=== PATIENT | male | born 1970 | race Caucasian/White ===

== ENCOUNTER 2022-06-11 08:48 | Emergency (ER) | payer OTHER, SELFPAY ==
--- NOTE | ~2022-06-11 | CT_ITS ---
EXAMINATION: CT ABDOMEN AND PELVIS WITHOUT CONTRAST CLINICAL INFORMATION: Abdominal pain and weight loss COMPARISON: None available. TECHNIQUE: Multidetector volumetric imaging was performed from the superior aspect of the liver through the pubic symphysis. Sagittal and coronal reformatted images were obtained on the technologist's workstation. This CT examination was performed using dose optimization techniques as appropriate, variously including the following: *Automated exposure control *Adjustment of mA and/or kV according to patient size (this includes techniques or standardized protocols for targeted exams where dose is matched to indication/reason for exam; i.e. extremities or head) *Use of iterative reconstruction technique DLP: 603 mGy-cm FINDINGS: LUNG BASES: The visualized lung bases are unremarkable. LIVER, GALLBLADDER, AND BILIARY TREE: The liver is normal in size, shape, and attenuation. No focal hepatic lesion or biliary ductal dilatation is present. The gallbladder is unremarkable with no evidence of radiopaque gallstones, gallbladder wall thickening, or obvious pericholecystic inflammatory changes. There is a large amount of ascites. PANCREAS: Unremarkable. SPLEEN: There are posterior scalp margins of spleen but no enlargement. The spleen is homogeneous in density. ADRENAL GLANDS: Unremarkable. KIDNEYS AND URETERS: The kidneys are normal in size, shape, and attenuation. No hydronephrosis, hydroureter, or calculi seen. No perinephric stranding. BLADDER: The bladder is decompressed. GASTROINTESTINAL TRACT: There is scattered stool and gas seen throughout the colon without distention. The small bowel loops are normal caliber. Appendix is not seen. ABDOMINAL WALL: No significant hernia is appreciated. LYMPH NODES: Small mesenteric lymph nodes with the largest one measuring 9 mm. VASCULAR: Unremarkable. PELVIC VISCERA: The prostate gland is enlarged. No abnormal lymph nodes seen. OSSEOUS STRUCTURES: Unremarkable. CT/CT abdomen pelvis wo IV con IMPRESSION: Diffuse significant ascites. Mild constipation. Fleischner guidelines were followed.
--- NOTE | ~2022-06-11 | US_ITS ---
EXAMINATION: Ultrasound-guided paracentesis. CLINICAL INDICATION: large volume ascites. COMPARISON: CT abdomen and pelvis performed earlier today at 10:16 AM. TECHNIQUE: Following explaining ultrasound-guided paracentesis procedure, benefits and risk, a written consent was obtained. Patient was placed supine on ultrasound stretcher and preliminary ultrasound imaging was obtained. An optimal site was selected along the left lower quadrant, marked, cleaned and draped in usual sterile manner. 1% lidocaine was injected at puncture site. Through a small skin incision a 5 [place] [employer] catheter was advanced into the peritoneal space. After observing fluid return, stylet was withdrawn and catheter connected to vacuum bottle via connecting cannula. After obtaining all fluid and observing no more fluid return, the catheter was removed and complete hemostasis was achieved at puncture site. Sterile dressing applied postprocedure. FINDINGS: On preliminary ultrasound imaging there is large amount of free fluid. Approximately 6.2 L of yellowish fluid was drained from the left lower quadrant. US/US paracentesis abd w/image IMPRESSION: Successful ultrasound-guided diagnostic and therapeutic paracentesis performed.
[2022-06-11 08:55] VITALS: BP 111/70; PULSE 81; RESP 16; TEMP 36.2; O2SAT 100; BMI 27.2
--- NOTE | 2022-06-11 09:53 | ED_ITS ---
HPI - Abdominal Pain General Chief Complaint: Abdominal Pain Stated Complaint: abd pain, severe back pain Time Seen by Provider: 06/11/22 09:45 Source: patient and RN notes reviewed Mode of arrival: ambulatory Limitations: no limitations History of Present Illness HPI narrative: This is a [id number]-spp-male who presents to the emergency department with complaints of ongoing abdominal bloating, early satiety, nausea, weight loss, and constipation since January 2022, worsening over the last week. Patient states that he has been seen multiple times at [facility] and a GI specialist since the onset of his symptoms. He states that he had a unremarkable colonoscopy performed last year, a breath test, and was told he had SIBO and to eliminate possible food triggers, now avoiding gluten, dairy, without much relief. He was treated with a course of antibiotics which he completed without any relief. He is going to be seen by Issa CAGE in June as he has not been able to get [facility] for follow up for continued symptoms. Last BM was this morning, which was normal for him. No nausea, vomiting or diarrhea. He also has had back pain develop over the last week. He has been taking Miralax with some relief. MD elicited complaint: abdominal pain Pertinent past history: constipation Onset (ago): month(s) Pain Consistency: constant Location: diffuse Severity: moderate Quality: aching Migration to: bilateral flank Exacerbating factors: nothing Relieving factors: nothing Associated symptoms: nausea Related Data Previous Rx's Medication Instructions Recorded spironolactone 25 mg tablet 25 mg PO DAILY #30 tabs 06/11/22 Allergies Allergy/AdvReac Type Severity Reaction Status Date / Time Penicillins Allergy Rash Verified 06/11/22 08:54 Review of Systems Review of Systems Yes all other systems are reviewed and are negative [facility] Social History Social History Advance Directives: No Advance Directives Information Provided: Yes Physical Exam ED Vital Signs: Vital Signs - 24 hr 06/11/22 08:55 Temperature 97.2 F Pulse Rate 81 Respiratory Rate 16 Blood Pressure 111/70 Pulse Oximetry 100 Oxygen Delivery Method Room Air BMI result Body Mass Index 27.2 Appearance: Alert. Oriented X3. No acute distress. Eyes: Pupils equal, round and reactive to light. ENT: Pharynx normal. Neck: Normal inspection. Neck supple. CVS: Normal heart rate and rhythm. Pulses normal. Respiratory: No respiratory distress. Breath sounds normal. Abdomen: Abdomen is distended but soft, and diffusely tender without point tenderness. No rebound or guarding. +BS x4 Skin: Skin warm and dry. Normal skin color. Normal skin turgor. No rashes. Extremities: No lower extremity edema. Neuro: Oriented X 3. No motor deficit. No sensory deficit. Course Course Course Narrative: 1030 - Received [facility] GI notes received from outpatient appointment on 2022. Per documentation, patient's colonoscopy was on 07/17 which was unremarkable. H. pylori testing was done by his primary care physician which was negative. They suspected that he was experiencing bloating secondary to constipation and was advised to start MiraLax 17 g daily. There is question of SIBO, and SIBO testing was ordered at that time, results not included in this documentation. Reevaluation(s) Reevaluation #1: CT abdomen showing significant ascites and mild constipation, paged Dr. Gonzalez from GI for further recommendations. Time: 11:16 Reevaluation #2: Spoke w/ Dr. Gonzalez - recommending paracentesis, concern for possible underlying malignancy. cytology ordered. Reevaluation #3: Patient returns from paracenteosis, 6.3L removed. labs sent. Patient feeling much better. He is hemodynamically stable. Stable for discharge home. Time: 14:31 Medical Decision Making Medical Decision Making MDM Narrative: This is a 51-year-old male, with past medical history of SIBO, who presents emergency department for evaluation of ongoing satiety, weight loss, abdominal bloating, and constipation since January of 2020 to worsen over the last week with associated bilateral flank pain. Exam is consistent with abdominal distension, although his abdomen is soft. He reports abdominal distension was worsening over the last 2 months. He has trace blood in his urine. He reports bilateral flank pain and back pain. CT scan of the abdomen was performed which is showing large volume ascites, normal appearing liver with no evidence of cirrhotic changes. Liver enzymes are normal. Unclear etiology of his ascites at this time. Spoke with Dr. Gonzalez from GI who is recommending paracentesis. Paracentesis was able to be performed today, 6.3 L were removed in Interventional Radiology. Patient tolerated the procedure well. He remains hemodynamically stable. He is feeling much better symptomatically. At this time comfortable discharge home with initiation of low does spironolactone along with close GI follow-up. Patient expressed understanding and agrees with plan. Stable for discharge home Differential Diagnosis Differential Diagnoses: The differential diagnosis associated with the presentation includes Constipation, Cirrhosis, SBO, Gatritis, Diverticulitis, Diverticulosis, Nephroliathiasis Consult Healthcare Provider Management of the patient was discussed with: [employer] Dr. Gonzalez from GI recommending paracentesis and fluid studies. he will need GI follow up Lab Data MDM Lab Attestation statement: I reviewed the patient's lab results. Lab workup reviewed. No macrocytosis, thrombocytopenia, coagulopathy, liver abnormalities to suggest any underlying liver disease. 06/11/22 10:08 06/11/22 10:08 Labs: Lab Results 06/11/22 06/11/22 06/11/22 Range/Units 10:08 10:08 10:09 WBC 5.9 (4.8-10.8) X10*3/uL RBC 4.43 L (4.60-5.80) X10*6/uL Hgb 12.7 L (14.0-18.0) g/dl Hct 38.8 L (42.0-52.0) % MCV 87.6 (80.0-98.0) fL MCH 28.7 (27.0-33.0) pg MCHC 32.7 (31.0-36.0) g/dl RDW 12.9 (11.0-16.0) % Plt Count 419 H (160-400) X10*3/uL MPV 9.0 L (9.4-12.4) fL Immature Gran % (Auto) 0.2 (0.0-0.4) % Neut % (Auto) 62.9 (45-73) % Lymph % (Auto) 25.6 (20-40) % [place] % (Auto) 8.2 (2-11) % Eos % (Auto) 2.4 (0-4) % Baso % (Auto) 0.7 (0-2) % Lymph # (Auto) 1.5 (1.2-4.9) X10*3/uL [place] # (Auto) 0.5 (0.1-1.2) X10*3/uL Eos # (Auto) 0.1 (0.0-0.4) X10*3/uL Baso # (Auto) 0.0 (0.0-0.2) X10*3/uL Abs Immat Gran (auto) 0.01 (0.00-0.03) X10*3/uL Absolute Neuts (auto) 3.7 (2.0-8.3) x10*3/uL Absolute Nucleated RBC 0.000 (0.0-0.012) X10*3/uL Nucleated RBC % (auto) 0.0 (0.0-0.2) /100WBC PT (10.0-13.1) SEC INR (0.9-1.1) APTT (26.0-36.4) SEC Sodium 139 (135-145) mmol/L Potassium 4.7 (3.3-5.1) mmol/L Chloride 102 (96-108) mmol/L Carbon Dioxide 29 (22-29) mmol/L Anion Gap 13 (12-20) BUN 14 (9-16) mg/dL Creatinine 0.83 (0.5-1.4) mg/dL Estim Creat Clear Calc 99.5 Estimated GFR > 60 Random Glucose 89 (60-115) mg/dL Calcium 9.3 (8.4-10.2) mg/dL Magnesium 2.2 (1.6-2.6) mg/dL Total Bilirubin 0.5 (0.0-1.0) mg/dL Direct Bilirubin < 0.2 (0.0-0.5) mg/dL AST 16 (5-37) U/L ALT 14 (0-40) U/L Alkaline Phosphatase 65 (39-117) U/L Total Protein 6.4 L (6.5-8.0) g/dL Albumin 3.9 (3.5-5.0) g/dL Urine Color Yellow Urine Appearance Clear Urine pH 6.0 (5.0-9.0) Ur Specific [place] 1.025 (1.005-1.025) Urine Protein Trace (Neg-Trace) mg/dL Urine Glucose (UA) Negative (Negative) mg/dL Urine Ketones 15 (Negative) mg/dL Urine Blood Trace H (Negative) Urine Nitrite Negative (Negative) Ur Leukocyte Esterase Negative (Negative) Urine RBC 3-5 H (0-2) /HPF Urine WBC 0-5 (0-5) /HPF Ur Squamous Epith Cells 0-2 (0-2) /HPF Urine Bacteria None Seen (None Seen) Hyaline Casts 0-2 (0-2) /LPF 06/11/22 Range/Units 11:44 WBC (4.8-10.8) X10*3/uL RBC (4.60-5.80) X10*6/uL Hgb (14.0-18.0) g/dl Hct (42.0-52.0) % MCV (80.0-98.0) fL MCH (27.0-33.0) pg MCHC (31.0-36.0) g/dl RDW (11.0-16.0) % Plt Count (160-400) X10*3/uL MPV (9.4-12.4) fL Immature Gran % (Auto) (0.0-0.4) % Neut % (Auto) (45-73) % Lymph % (Auto) (20-40) % [place] % (Auto) (2-11) % Eos % (Auto) (0-4) % Baso % (Auto) (0-2) % Lymph # (Auto) (1.2-4.9) X10*3/uL [place] # (Auto) (0.1-1.2) X10*3/uL Eos # (Auto) (0.0-0.4) X10*3/uL Baso # (Auto) (0.0-0.2) X10*3/uL Abs Immat Gran (auto) (0.00-0.03) X10*3/uL Absolute Neuts (auto) (2.0-8.3) x10*3/uL Absolute Nucleated RBC (0.0-0.012) X10*3/uL Nucleated RBC % (auto) (0.0-0.2) /100WBC PT 11.2 (10.0-13.1) SEC INR 1.0 (0.9-1.1) APTT 27.9 (26.0-36.4) SEC Sodium (135-145) mmol/L Potassium (3.3-5.1) mmol/L Chloride (96-108) mmol/L Carbon Dioxide (22-29) mmol/L Anion Gap (12-20) BUN (9-16) mg/dL Creatinine (0.5-1.4) mg/dL Estim Creat Clear Calc Estimated GFR Random Glucose (60-115) mg/dL Calcium (8.4-10.2) mg/dL Magnesium (1.6-2.6) mg/dL Total Bilirubin (0.0-1.0) mg/dL Direct Bilirubin (0.0-0.5) mg/dL AST (5-37) U/L ALT (0-40) U/L Alkaline Phosphatase (39-117) U/L Total Protein (6.5-8.0) g/dL Albumin (3.5-5.0) g/dL Urine Color Urine Appearance Urine pH (5.0-9.0) Ur Specific [place] (1.005-1.025) Urine Protein (Neg-Trace) mg/dL Urine Glucose (UA) (Negative) mg/dL Urine Ketones (Negative) mg/dL Urine Blood (Negative) Urine Nitrite (Negative) Ur Leukocyte Esterase (Negative) Urine RBC (0-2) /HPF Urine WBC (0-5) /HPF Ur Squamous Epith Cells (0-2) /HPF Urine Bacteria (None Seen) Hyaline Casts (0-2) /LPF Independent Interpretation I performed an independent interpretation of an: CT Scan Interpretation: CT abdomen - significant ascites noted, agree with radiologist interpretation Radiology Impression Discussion of test interpretation with radiology: I have reviewed the radiologist's reading. Radiologist Impression: FINDINGS: LUNG BASES: The visualized lung bases are unremarkable.? LIVER, GALLBLADDER, AND BILIARY TREE: The liver is normal in size, shape, and attenuation. No focal hepatic lesion or biliary ductal dilatation is present. The gallbladder is unremarkable with no evidence of radiopaque gallstones, gallbladder wall thickening, or obvious pericholecystic inflammatory changes. There is a large amount of ascites. PANCREAS: Unremarkable.? SPLEEN: There are posterior scalp margins of spleen but no enlargement. The spleen is homogeneous in density. ADRENAL GLANDS: Unremarkable.? KIDNEYS AND URETERS: The kidneys are normal in size, shape, and attenuation. No hydronephrosis, hydroureter, or calculi seen. No perinephric stranding. ? BLADDER: The bladder is decompressed.? GASTROINTESTINAL TRACT: There is scattered stool and gas seen throughout the colon without distention. The small bowel loops are normal caliber. Appendix is not seen.? ABDOMINAL WALL: No significant hernia is appreciated.? LYMPH NODES: Small mesenteric lymph nodes with the largest one measuring 9 mm. VASCULAR: Unremarkable. PELVIC VISCERA: The prostate gland is enlarged. No abnormal lymph nodes seen.? OSSEOUS STRUCTURES: Unremarkable.? CT/CT abdomen pelvis wo IV con IMPRESSION: Diffuse significant ascites. ? Mild constipation. ? Fleischner guidelines were followed. External Record Review External record reviewed: Office record and Outpatient record Prescription Management I considered prescription management with: Other (Diuretic) Medications Administered Discontinued Medications Generic Name Dose Route Start Last Admin Trade Name Freq PRN Reason Stop Dose Admin Albumin Human 100 mls @ 100 mls/hr 06/11/22 12:22 06/11/22 13:35 Kedbumin 25 % IV 06/11/22 13:21 Infused ONCE ONE Infusion Critical Care Time Critical Care Time Critical Care Time: No Discharge Plan Discharge Clinical Impression: Ascites Patient Disposition: Home, Self-Care Instructions: Ascites (ED) Additional Instructions: 6.3 L were drained from your abdomen. Fluid was sent for testing. Your liver appeared normal on your CT and your liver tests were normal on your bloodwork. Recommend taking the prescribed medication each morning to help prevent fluid build up in your abdomen. You must follow up with GI for further management. If you develop new or worsening symptoms call 911 or come back to the ER for further evaluation. Prescriptions: New spironolactone 25 mg tablet 25 mg PO DAILY Qty: 30 0RF Referrals: [facility] [Provider Group] (ascites s/p large volume tap 06/11, unclear etiology, needs follow up)
[2022-06-11 10:16] LABS: Appearance Urine Clear; Color Urine Yellow; Glucose Urine UA Negative (Negative); Leukocyte Esterase Urine Negative (Negative); Nitrite Urine Negative (Negative); Specific Gravity - Urine 1.025 (1.005-1.025); UMIC TRIGGER UACC YES; Urine Blood Trace (Negative); Urine Ketones 15 mg/dL (Negative); Urine Protein Trace mg/dL (Neg-Trace)
[2022-06-11 10:18] LABS: Bacteria Urine None Seen (None Seen); Hyaline Casts Urine 0-2 /LPF (0-2); Squamous Epithelial Cell Urine 0-2 /HPF (0-2); WBC Urine 0-5 /HPF (0-5)
[2022-06-11 10:19] LABS: MANUAL DIFF FLAG NO
[2022-06-11 10:22] LABS: Basophils Percent Auto 0.7 % (0-2); Eosinophils Absolute Auto 0.1 X10*3/uL (0.0-0.4); Eosinophils Percent Auto 2.4 % (0-4); Hematocrit 38.8 % (42.0-52.0); Hemoglobin 12.7 g/dl (14.0-18.0); Imm Gran Abs Auto 0.01 X10*3/uL (0.00-0.03); Imm Gran Pct Auto 0.2 % (0.0-0.4); Lymphocytes Absolute Auto 1.5 X10*3/uL (1.2-4.9); Lymphocytes Percent Auto 25.6 % (20-40); Mean Corpuscular HGB Conc 32.7 g/dl (31.0-36.0); Mean Corpuscular Hemoglobin 28.7 pg (27.0-33.0); Mean Corpuscular Volume 87.6 fL (80.0-98.0); Monocytes Absolute Auto 0.5 X10*3/uL (0.1-1.2); Monocytes Percent Auto 8.2 % (2-11); Neutrophils Absolute Auto 3.7 x10*3/uL (2.0-8.3); Neutrophils Percent Auto 62.9 % (45-73); Platelet Count 419 X10*3/uL (160-400); Red Blood Count 4.43 X10*6/uL (4.60-5.80); Red Cell Distribution Width 12.9 % (11.0-16.0); White Blood Count 5.9 X10*3/uL (4.8-10.8)
[2022-06-11 10:50] LABS: Alanine Aminotransferase 14 U/L (0-40); Albumin Level 3.9 g/dL (3.5-5.0); Alkaline Phosphatase 65 U/L (39-117); Anion Gap 13 (12-20); Aspartate Amino Transferase 16 U/L (5-37); Bilirubin Direct < 0.2 mg/dL (0.0-0.5); Bilirubin Total 0.5 mg/dL (0.0-1.0); Blood Urea Nitrogen 14 mg/dL (9-16); Calcium 9.3 mg/dL (8.4-10.2); Carbon Dioxide 29 mmol/L (22-29); Chloride 102 mmol/L (96-108); Creatinine Clr Calc Pharmacy 99.5; Estimated Glomerular Filt Rate > 60; Glucose Random 89 mg/dL (60-115); Magnesium 2.2 mg/dL (1.6-2.6); Potassium 4.7 mmol/L (3.3-5.1); Sodium 139 mmol/L (135-145); Total Protein 6.4 g/dL (6.5-8.0)
[2022-06-11 11:58] LABS: Prothrombin Time 11.2 SEC (10.0-13.1)
[2022-06-11 12:01] LABS: Partial Thromboplastin Time 27.9 SEC (26.0-36.4)
--- NOTE | 2022-06-11 12:09 | PC.NURSE ---
plan for IR at 1pm for fluid drainage.
[2022-06-11] MEDS: Albumin Human 25 % 100 ML IV (12:31)
[2022-06-11 17:47] LABS: pH Peritoneal Fluid 7.47
[2022-06-11 18:00] LABS: Glucose Peritoneal Fluid 83 MG/DL
[2022-06-14 07:39] LABS: Amylase Peritoneal Fluid 29
== END 2022-06-11 14:45 | disposition home or self-care (01) ==
PROVIDERS: Physician Assistant; Radiology Diagnostic Radiology; Emergency Provider Emergency Medicine
DX: R18.8 Other ascites (principal); K59.00 Constipation, unspecified; R10.13 Epigastric pain; M54.50 Low back pain, unspecified; Z79.899 Other long term (current) drug therapy
CPT/HCPCS: 36415; 49083; 74176; 80048; 80076; 81001; 82150; 82945; 83735; 83986; 84157; 85025; 85610; 85730; 87070; 87073; 87205; 88112; 88305; 88341; 88342; 96365; 99283; 99284; P9047

== ENCOUNTER 2022-06-16 10:19 | Emergency (ER) | payer OTHER, SELFPAY ==
--- NOTE | ~2022-06-16 | CT_ITS ---
EXAMINATION: CT ABDOMEN AND PELVIS WITH CONTRAST CLINICAL INFORMATION: Lower abdominal pain COMPARISON: 06/11/2022 TECHNIQUE: Multidetector volumetric images were obtained from the superior aspect of the liver through the pubic symphysis following administration 85 mL of Omnipaque 350 intravenous contrast. Sagittal and coronal reformatted images were obtained on the technologist's workstation. Oral contrast: No This CT examination was performed using dose optimization techniques as appropriate, variously including the following: *Automated exposure control *Adjustment of mA and/or kV according to patient size (this includes techniques or standardized protocols for targeted exams where dose is matched to indication/reason for exam; i.e. extremities or head) *Use of iterative reconstruction technique DLP: 486 mGy-cm FINDINGS: LUNG BASES: The visualized lung bases are unremarkable. PERITONEUM: Moderate ascites is present, decreased from the prior study. LIVER, GALLBLADDER, AND BILIARY TREE: The liver is normal in size, shape, and attenuation. No focal hepatic lesion or biliary ductal dilatation is present. The gallbladder is unremarkable with no evidence of radiopaque gallstones, gallbladder wall thickening, or obvious pericholecystic inflammatory changes. PANCREAS: Unremarkable. SPLEEN: The spleen is quite unusual appearance with scalloped margins but unchanged from prior. ADRENAL GLANDS: Unremarkable. KIDNEYS AND URETERS: The kidneys are normal in size, shape, and attenuation. No hydronephrosis, hydroureter, or calculi seen. No perinephric stranding. BLADDER: Unremarkable. GASTROINTESTINAL TRACT: The small and large bowel are unremarkable. Clear the tip of the cecum, there is an ovoid fluid collections seen measuring 5.4 x 4.1 x 5.5 cm which has calcification around its age and there may be some surgical clips present at the level of the appendix. Appearances are unchanged when compared to the prior study. ABDOMINAL WALL: No significant hernia is appreciated. LYMPH NODES: No retroperitoneal lymphadenopathy. VASCULAR: Unremarkable. PELVIC VISCERA: Moderate BPH. Normal-appearing seminal vesicles OSSEOUS STRUCTURES: Unremarkable. CT/CT abdomen pelvis w IV con IMPRESSION: 1. Moderate ascites, decreased from the prior study. 2. Unchanged fluid collection adjacent to the tip of the cecum. 3. Incidental note made of BPH and scalloped margins of the spleen. Fleischner guidelines were followed.
[2022-06-16 11:03] VITALS: BP 133/72; PULSE 80; RESP 16; TEMP 37.3; O2SAT 100; BMI 25.9
--- NOTE | 2022-06-16 11:04 | ED_ITS ---
HPI - General Adult General Chief complaint: Abdominal Pain <Ronny Velez - Last Filed: 06/16/22 11:05> Stated complaint: Abd pain <Ronny Velez - Last Filed: 06/16/22 11:05> Time Seen by Provider: 06/16/22 16:31 <Ronny Velez - Last Filed: 06/16/22 11:05> Source: patient <EKATERINA Jordan - Last Filed: 06/16/22 18:16> Mode of arrival: ambulatory <EKAETRINA Jordan - Last Filed: 06/16/22 18:16> Limitations: no limitations <EKATERINA Jordan - Last Filed: 06/16/22 18:16> History of Present Illness HPI narrative: 51 y.o male w/ a PMHx appendectomy, ascites s/p paracentesis on 06/11/22, presents to the ED c/o worsening diffuse abdominal pain x5 days. Pt states he felt well after his recent paracentesis, but began developing abdominal pain the day after. Reports decreased p.o intake secondary to pain. Denies fevers, chills, chest pain, SOB, nausea, vomiting, diarrhea, constipation, or urinary symptoms. Of note patient seen on 06/11/2022 had diffuse significant ascites on CT, 6.3L ascetic fluid removed by IR, cytology showing atypical epithelial cells. Patient has follow-up with Gastroenterology on Tuesday <EKATERINA Jordan - Last Filed: 06/16/22 18:16> Onset (ago): day(s) <EKATERIAN Jordan - Last Filed: 06/16/22 18:16> Severity: mild <EKATERINA Jordan - Last Filed: 06/16/22 18:16> Exacerbating factors: eating <EKATERINA Jordan Last Filed: 06/16/22 18:16> Related Data Home medications: Previous Rx's Medication Instructions Recorded spironolactone 25 mg tablet 25 mg PO DAILY #30 tabs 06/11/22 ondansetron 4 mg disintegrating 4 mg PO Q6H PRN nausea and 06/16/22 tablet vomiting #14 tabs <Ronny Velez - Last Filed: 06/16/22 11:05> Allergies/adverse reactions: Allergies Allergy/AdvReac Type Severity Reaction Status Date / Time Penicillins Allergy Rash Verified 06/11/22 08:54 <Ronny Velez - Last Filed: 06/16/22 11:05> Review of Systems Review of Systems: Constitutional: No Fever, No Chills, No Fatigue, No Malaise ENT/Mouth: No Nasal Congestion, No sore throat, No Rhinorrhea Eyes: No Vision Changes Cardiovascular: No Chest Pain, No SOB, No Dyspnea on Exertion, No Orthopnea, No Palpitations Respiratory: No Cough, No Sputum, No Dyspnea Gastrointestinal: No Nausea, No Vomiting, No Diarrhea, No Constipation, +Abdominal pain, No Hematochezia, No Melena Genitourinary: No irregular bleeding, No Dysuria, No Hematuria, Musculoskeletal: No joint pain, No Myalgias, No Joint Swelling Skin: No Skin Lesions, No rash Neuro: No Weakness, No Loss of Consciousness, No Dizziness, No Headache <EKATERINA Jordan - Last Filed: 06/16/22 18:16> Yes all other systems are reviewed and are negative <EKATERINA Jordan - Last Filed: 06/16/22 18:16> Constitutional: Constitutional: Reports as per HPI <EKATERINA Jordan - Last Filed: 06/16/22 18:16> [facility] Past Medical History Attestation statement: The following information was validated with the patient. <EKATERINA Jordan - Last Filed: 06/16/22 18:16> Social History Social History: Social History Alcohol intake: never Smoked in Last 30 Days: No Use of substances other than those prescribed or required for medical reasons: No Advance Directives: No Advance Directives Information Provided: Yes <Ronny Velez - Last Filed: 06/16/22 11:05> Physical Exam ED Vital Signs: Vital Signs - 24 hr 06/16/22 11:03 06/16/22 14:10 06/16/22 16:00 Temperature 99.2 F 97.8 F 97.9 F Pulse Rate 80 67 78 Respiratory Rate 16 18 18 Blood Pressure 133/72 111/64 104/60 Pulse Oximetry 100 99 99 Oxygen Delivery Method Room Air Room Air Room Air 06/16/22 18:00 06/16/22 19:22 Temperature 98.1 F Pulse Rate 83 80 Respiratory Rate 16 18 Blood Pressure 115/70 Pulse Oximetry 100 100 Oxygen Delivery Method Room Air BMI result Body Mass Index 25.9 <Ronny Velez - Last Filed: 06/16/22 11:05> Vital Signs - 24 hr 06/16/22 11:03 06/16/22 14:10 06/16/22 16:00 Temperature 99.2 F 97.8 F 97.9 F Pulse Rate 80 67 78 Respiratory Rate 16 18 18 Blood Pressure 133/72 111/64 104/60 Pulse Oximetry 100 99 99 Oxygen Delivery Method Room Air Room Air Room Air 06/16/22 18:00 06/16/22 19:22 Temperature 98.1 F Pulse Rate 83 80 Respiratory Rate 16 18 Blood Pressure 115/70 Pulse Oximetry 100 100 Oxygen Delivery Method Room Air BMI result Body Mass Index 25.9 <EKATERINA Jordan - Last Filed: 06/16/22 18:16> Const General: cooperative, healthy appearing and no acute distress <EKATERINA Jordan - Last Filed: 06/16/22 18:16> Orientation/consciousness: patient oriented x3 <EKATERINA Jordan - Last Filed: 06/16/22 18:16> Limitations: no limitations <EKATERINA Jordan - Last Filed: 06/16/22 18:16> HENMT Head: Yes normal to inspection and Yes atraumatic <EKATERINA Jordan - Last Filed: 06/16/22 18:16> Ears: hearing grossly normal bilaterally <EKATERINA Jordan - Last Filed: 06/16/22 18:16> General nose exam: Normal external nose present <EKATERINA Jordan Last Filed: 06/16/22 18:16> Face and sinus: Yes normal facial exam <EKATERINA Jordan Last Filed: 06/16/22 18:16> Eyes General: appearance normal, both eyes and all related structures <EKATERINA Jordan Last Filed: 06/16/22 18:16> EOM: EOMs intact bilaterally <EKATERINA Jordan - Last Filed: 06/16/22 18:16> Neck Neck: Yes normal visual inspection and Yes no meningeal signs <Arely Hicks PA - Last Filed: 06/16/22 18:16> Resp Effort & Inspection: normal respiratory effort and no respiratory distress <Arely Hicks PA - Last Filed: 06/16/22 18:16> Auscultation: no wheezes <Arely Hicks PA - Last Filed: 06/16/22 18:16> Cardio Rate: regular rate <Arely Hicks PA - Last Filed: 06/16/22 18:16> Heart sounds: S1 normal heart sound present and S2 normal heart sound present <Arely Hicks PA - Last Filed: 06/16/22 18:16> GI Inspection: Yes normal to inspection and No distended <Arely Hicks PA - Last Filed: 06/16/22 18:16> Palpation (GI): Soft to palpation, Tenderness to palpation present (GI) (lower abdomen) with no rebound tenderness, no guarding, not rigid, no pulsatile masses and No Ascites present <Arely Hicks PA - Last Filed: 06/16/22 18:16> General: Yes no CVA tenderness <Arely Hicks PA - Last Filed: 06/16/22 18:16> Back/Spine/Pelvis Back: no CVA tenderness <Arely Hicks PA - Last Filed: 06/16/22 18:16> Skin Rashes: no rashes <Arely Hicks PA - Last Filed: 06/16/22 18:16> Wounds: no wounds <Arely Hicks PA - Last Filed: 06/16/22 18:16> Neuro General: patient oriented x3, tone normal and no meningeal signs <Arely Hicks PA - Last Filed: 06/16/22 18:16> Gait exam (Neuro): Normal gait present <Arely Hicks PA - Last Filed: 06/16/22 18:16> Extrem General: Yes normal to inspection and Yes no pedal edema <Arely Hicks PA - Last Filed: 06/16/22 18:16> Course Course Course Narrative: RME- 51-year-old male presenting for evaluation of abdominal pain and bloating. He was seen here 06/11/2022 is 6.3 L fluid draining through paracentesis. Plan for labs and the patient will wait for appropriate <Ronny Velez - Last Filed: 06/16/22 11:05> RME- 51-year-old male presenting for evaluation of abdominal pain and bloating. He was seen here 06/11/2022 is 6.3 L fluid draining through paracentesis. Plan for labs and the patient will wait for appropriate -1729--no leukocytosis. Labs otherwise unremarkable. UA with blood/rbc's, not infected -1800--ED care transferred to EKATERINA Romo pending CT and re-eval. Dispo per results <EKATERINA Jordan - Last Filed: 06/16/22 18:16> Medications Administered Discontinued Medications Generic Name Dose Route Start Last Admin Trade Name Freq PRN Reason Stop Dose Admin Sodium Chloride 500 mls @ 999 mls/hr 06/16/22 17:00 06/16/22 20:23 Ns IV 06/16/22 17:30 Infused .Q31M ARIELLE Infusion Iohexol 100 ml 06/16/22 19:37 06/16/22 19:37 Iohexol 350 Mg/Ml 100 Ml Infus..Btl IV 06/16/22 19:38 85 ml ONCE ONE Administration <Ronny Velez - Last Filed: 06/16/22 11:05> Medications Administered Discontinued Medications Generic Name Dose Route Start Last Admin Trade Name Freq PRN Reason Stop Dose Admin Sodium Chloride 500 mls @ 999 mls/hr 06/16/22 17:00 06/16/22 20:23 Ns IV 06/16/22 17:30 Infused .Q31M ARIELLE Infusion Iohexol 100 ml 06/16/22 19:37 06/16/22 19:37 Iohexol 350 Mg/Ml 100 Ml Infus..Btl IV 06/16/22 19:38 85 ml ONCE ONE Administration <EKATERINA Jordan - Last Filed: 06/16/22 18:16> Medical Decision Making Medical Decision Making MDM Narrative: 51 y.o male w/ a PMHx appendectomy, ascites s/p paracentesis on 06/11/22, presents to the ED c/o worsening diffuse abdominal pain x5 days. On exam, patient is well-appearing, NAD, VSS. Abdomen is soft, non-distended with lower ttp, no rebound or guarding. No CVAT, No pedal edema. No appreciable ascites at this time. Low suspicion for SBP. Concern for diverticulitis vs colitis vs UTI. Lower suspicion for cholecystitis/pancreatitis. Low suspicion for fluid reaccumulation Plan: Labs, UA, abdominal CT w/contrast Please refer to course for remaining clinical decision making, interpretation of labs/imaging results, and discussions with consultants and/or family members. <EKATERINA Jordan - Last Filed: 06/16/22 18:16> Differential Diagnosis Differential Diagnoses: The differential diagnosis associated with the presentation includes <EKATERINA Jordan - Last Filed: 06/16/22 18:16> As above <EKATERINA Jordan - Last Filed: 06/16/22 18:16> Admission/Observation Consideration of admission/observation: Escalation of care including admission/observation considered <EKATERINA Scott - Last Filed: 06/16/22 18:16> Lab Data MDM Lab Attestation statement: I reviewed the patient's lab results. <EKATERINA Jordan - Last Filed: 06/16/22 18:16> Result Diagrams: 06/16/22 12:21 06/16/22 12:21 <Ronny Velez - Last Filed: 06/16/22 11:05> Labs: Lab Results 06/16/22 06/16/22 06/16/22 Range/Units 12:21 12:21 12:21 WBC 7.1 (4.8-10.8) X10*3/uL RBC 4.79 (4.60-5.80) X10*6/uL Hgb 13.4 L (14.0-18.0) g/dl Hct 41.6 L (42.0-52.0) % MCV 86.8 (80.0-98.0) fL MCH 28.0 (27.0-33.0) pg MCHC 32.2 (31.0-36.0) g/dl RDW 12.9 (11.0-16.0) % Plt Count 469 H (160-400) X10*3/uL MPV 8.7 L (9.4-12.4) fL Immature Gran % (Auto) 0.3 (0.0-0.4) % Neut % (Auto) 64.2 (45-73) % Lymph % (Auto) 26.0 (20-40) % [place] % (Auto) 7.2 (2-11) % Eos % (Auto) 1.6 (0-4) % Baso % (Auto) 0.7 (0-2) % Lymph # (Auto) 1.8 (1.2-4.9) X10*3/uL [place] # (Auto) 0.5 (0.1-1.2) X10*3/uL Eos # (Auto) 0.1 (0.0-0.4) X10*3/uL Baso # (Auto) 0.1 (0.0-0.2) X10*3/uL Abs Immat Gran (auto) 0.02 (0.00-0.03) X10*3/uL Absolute Neuts (auto) 4.5 (2.0-8.3) x10*3/uL Absolute Nucleated RBC 0.000 (0.0-0.012) X10*3/uL Nucleated RBC % (auto) 0.0 (0.0-0.2) /100WBC PT 11.2 (10.0-13.1) SEC INR 1.0 (0.9-1.1) APTT 29.4 (26.0-36.4) SEC Sodium 139 (135-145) mmol/L Potassium 4.7 (3.3-5.1) mmol/L Chloride 102 (96-108) mmol/L Carbon Dioxide 26 (22-29) mmol/L Anion Gap 16 (12-20) BUN 13 (9-16) mg/dL Creatinine 0.79 (0.5-1.4) mg/dL Estim Creat Clear Calc 104.5 Estimated GFR > 60 Random Glucose 83 (60-115) mg/dL Calcium 9.6 (8.4-10.2) mg/dL Magnesium 2.2 (1.6-2.6) mg/dL Total Bilirubin 0.6 (0.0-1.0) mg/dL AST 33 (5-37) U/L ALT 76 H (0-40) U/L Alkaline Phosphatase 124 H (39-117) U/L Total Protein 6.5 (6.5-8.0) g/dL Albumin 4.0 (3.5-5.0) g/dL Lipase 28 (8-78) U/L <Ronny MarreroFam - Last Filed: 06/16/22 11:05> Lab Results 06/16/22 06/16/22 06/16/22 Range/Units 12:21 12:21 12:21 WBC 7.1 (4.8-10.8) X10*3/uL RBC 4.79 (4.60-5.80) X10*6/uL Hgb 13.4 L (14.0-18.0) g/dl Hct 41.6 L (42.0-52.0) % MCV 86.8 (80.0-98.0) fL MCH 28.0 (27.0-33.0) pg MCHC 32.2 (31.0-36.0) g/dl RDW 12.9 (11.0-16.0) % Plt Count 469 H (160-400) X10*3/uL MPV 8.7 L (9.4-12.4) fL Immature Gran % (Auto) 0.3 (0.0-0.4) % Neut % (Auto) 64.2 (45-73) % Lymph % (Auto) 26.0 (20-40) % [place] % (Auto) 7.2 (2-11) % Eos % (Auto) 1.6 (0-4) % Baso % (Auto) 0.7 (0-2) % Lymph # (Auto) 1.8 (1.2-4.9) X10*3/uL [place] # (Auto) 0.5 (0.1-1.2) X10*3/uL Eos # (Auto) 0.1 (0.0-0.4) X10*3/uL Baso # (Auto) 0.1 (0.0-0.2) X10*3/uL Abs Immat Gran (auto) 0.02 (0.00-0.03) X10*3/uL Absolute Neuts (auto) 4.5 (2.0-8.3) x10*3/uL Absolute Nucleated RBC 0.000 (0.0-0.012) X10*3/uL Nucleated RBC % (auto) 0.0 (0.0-0.2) /100WBC PT 11.2 (10.0-13.1) SEC INR 1.0 (0.9-1.1) APTT 29.4 (26.0-36.4) SEC Sodium 139 (135-145) mmol/L Potassium 4.7 (3.3-5.1) mmol/L Chloride 102 (96-108) mmol/L Carbon Dioxide 26 (22-29) mmol/L Anion Gap 16 (12-20) BUN 13 (9-16) mg/dL Creatinine 0.79 (0.5-1.4) mg/dL Estim Creat Clear Calc 104.5 Estimated GFR > 60 Random Glucose 83 (60-115) mg/dL Calcium 9.6 (8.4-10.2) mg/dL Magnesium 2.2 (1.6-2.6) mg/dL Total Bilirubin 0.6 (0.0-1.0) mg/dL AST 33 (5-37) U/L ALT 76 H (0-40) U/L Alkaline Phosphatase 124 H (39-117) U/L Total Protein 6.5 (6.5-8.0) g/dL Albumin 4.0 (3.5-5.0) g/dL Lipase 28 (8-78) U/L <EKATERINA Jordan - Last Filed: 06/16/22 18:16> Radiology Impression Discussion of test interpretation with radiology: I have reviewed the radiologist's reading. <EKATERINA Jordan - Last Filed: 06/16/22 18:16> External Record Review External record reviewed: Inpatient record, Office record, Outpatient record, Prior outpatient labs, Prior outpatient radiology, Primary care record and Outside ED record <EKATERINA Jordan - Last Filed: 06/16/22 18:16> Discharge Plan Discharge Clinical Impression: Abdominal pain <Ronny Velez - Last Filed: 06/16/22 11:05> Patient Disposition: Home, Self-Care <Ronny Velez - Last Filed: 06/16/22 11:05> Instructions: Abdominal Pain (ED) <Ronny Velez - Last Filed: 06/16/22 11:05> Additional Instructions: Take your medications as prescribed. If you were prescribed antibiotics today, it is important that you take your medication to their entirety, do not skip any doses, do not finish them early. Follow-up with your primary care provider this week. Follow-up with Gastroenterology within the next 1-3 days Return to the emergency department with new or worsening symptoms. Such as fevers, chills, chest pain, shortness of breath, nausea, vomiting, dizziness, headache, vision changes, lethargy In case of emergency call 911 CT/CT abdomen pelvis w IV con IMPRESSION: 1. Moderate ascites, decreased from the prior study. 2. Unchanged fluid collection adjacent to the tip of the cecum. 3. Incidental note made of BPH and scalloped margins of the spleen. Fleischner guidelines were followed. <Ronny Velez - Last Filed: 06/16/22 11:05> Prescriptions: New ondansetron 4 mg tablet,disintegrating 4 mg PO Q6H PRN (Reason: nausea and vomiting) Qty: 14 0RF No Action spironolactone 25 mg tablet 25 mg PO DAILY Qty: 30 0RF <Ronny Velez - Last Filed: 06/16/22 11:05> Referrals: [facility]Provider Group] - 1 day Physician,Unknown J [Primary Care Provider] - <Ronny Velez - Last Filed: 06/16/22 11:05> Stand Alone Forms: Work/School Release <Ronny Velez - Last Filed: 06/16/22 11:05>
[2022-06-16 12:25] LABS: MANUAL DIFF FLAG NO
[2022-06-16 12:27] LABS: Basophils Absolute Auto 0.1 X10*3/uL (0.0-0.2); Basophils Percent Auto 0.7 % (0-2); Eosinophils Absolute Auto 0.1 X10*3/uL (0.0-0.4); Eosinophils Percent Auto 1.6 % (0-4); Hematocrit 41.6 % (42.0-52.0); Hemoglobin 13.4 g/dl (14.0-18.0); Imm Gran Abs Auto 0.02 X10*3/uL (0.00-0.03); Imm Gran Pct Auto 0.3 % (0.0-0.4); Lymphocytes Absolute Auto 1.8 X10*3/uL (1.2-4.9); Mean Corpuscular HGB Conc 32.2 g/dl (31.0-36.0); Mean Corpuscular Volume 86.8 fL (80.0-98.0); Mean Platelet Volume 8.7 fL (9.4-12.4); Monocytes Absolute Auto 0.5 X10*3/uL (0.1-1.2); Monocytes Percent Auto 7.2 % (2-11); Neutrophils Absolute Auto 4.5 x10*3/uL (2.0-8.3); Neutrophils Percent Auto 64.2 % (45-73); Platelet Count 469 X10*3/uL (160-400); Red Blood Count 4.79 X10*6/uL (4.60-5.80); Red Cell Distribution Width 12.9 % (11.0-16.0); White Blood Count 7.1 X10*3/uL (4.8-10.8)
[2022-06-16 12:34] LABS: Prothrombin Time 11.2 SEC (10.0-13.1)
[2022-06-16 12:37] LABS: Partial Thromboplastin Time 29.4 SEC (26.0-36.4)
[2022-06-16 12:57] LABS: Alanine Aminotransferase 76 U/L (0-40); Alkaline Phosphatase 124 U/L (39-117); Anion Gap 16 (12-20); Aspartate Amino Transferase 33 U/L (5-37); Bilirubin Total 0.6 mg/dL (0.0-1.0); Blood Urea Nitrogen 13 mg/dL (9-16); Calcium 9.6 mg/dL (8.4-10.2); Carbon Dioxide 26 mmol/L (22-29); Chloride 102 mmol/L (96-108); Creatinine Clr Calc Pharmacy 104.5; Estimated Glomerular Filt Rate > 60; Glucose Random 83 mg/dL (60-115); Lipase 28 U/L (8-78); Potassium 4.7 mmol/L (3.3-5.1); Sodium 139 mmol/L (135-145); Total Protein 6.5 g/dL (6.5-8.0)
[2022-06-16 14:10] VITALS: BP 111/64; PULSE 67; RESP 18; TEMP 36.6; O2SAT 99
[2022-06-16 16:00] VITALS: BP 104/60; PULSE 78; RESP 18; TEMP 36.6; O2SAT 99
--- NOTE | 2022-06-16 16:29 | PC.NURSE ---
pt reporting 8/10 abdominal pain and bloating/fullness after only 2 bites of food. Pt had abdomen drained here last lisa. vitals stable, alert and oriented.
[2022-06-16 17:00] LABS: Magnesium 2.2 mg/dL (1.6-2.6)
[2022-06-16 18:00] VITALS: PULSE 83; RESP 16; O2SAT 100
[2022-06-16] MEDS: 0.9 % Sodium Chloride 500 ML 999 ML IV (18:50)
[2022-06-16 19:22] VITALS: BP 115/70; PULSE 80; RESP 18; TEMP 36.7; O2SAT 100
--- NOTE | 2022-06-16 19:23 | PC.NURSE ---
IV inserted, pt returned from CT scan. vitals stable. reporting no pain at the moment.
[2022-06-16] MEDS: iohexoL 350 MG/ML 100 ML INFUS..BTL IV (19:37)
[2022-06-16] MEDS: Ondansetron ODT 4 MG TAB.RAPDIS TRANSLINGU (21:21)
== END 2022-06-16 21:25 | disposition home or self-care (01) ==
PROVIDERS: Physician Assistant; Emergency Provider Internal Medicine
DX: R10.9 Unspecified abdominal pain (principal)
CPT/HCPCS: 36415; 74177; 80053; 83690; 83735; 85025; 85610; 85730; 96360; 96361; 99284; 99285; Q9967

== ENCOUNTER 2022-06-21 10:14 | Outpatient (REF) | payer OTHER, SELFPAY ==
[2022-06-22 09:04] LABS: CA-125 24 U/mL (<35); Cancer Antigen 15-3 9 U/mL (<32)
[2022-06-24 12:49] LABS: TS Negative Control Passed; TS Panel A 0; TS Panel B 2; TS Positive Control Passed; TSpotTB Negative (Negative)
== END 2022-06-21 10:15 | disposition home or self-care (01) ==
LOC: HO.LAB 10:14
PROVIDERS: Visit Provider Internal Medicine
DX: R18.8 Other ascites (principal); K35.32 Acute appendicitis with perforation, localized peritonitis, and gangrene, without abscess; C78.6 Secondary malignant neoplasm of retroperitoneum and peritoneum
CPT/HCPCS: 36415; 82378; 86300; 86304; 86481; 99202

== ENCOUNTER 2022-06-25 07:23 | Inpatient (IN) | payer MEDICAID, OTHER, SELFPAY ==
[2022-06-25] VITALS (9 sets, daily range): BP systolic 101–118; BP diastolic 55–73; PULSE 70–82; RESP 12–20; TEMP 36.2–36.8; O2SAT 96–100; BMI 27.5
--- NOTE | ~2022-06-25 | US_ITS ---
EXAMINATION: US ULTRASOUND-GUIDED PARACENTESIS CLINICAL INDICATION: Ascites. COMPARISON: CT abdomen pelvis 06/16/2022. TECHNIQUE: Following explaining ultrasound-guided paracentesis procedure, benefits and risks, a written consent was obtained from the patient. Patient was placed supine and preliminary ultrasound imaging was obtained. An optimal site was selected along the right lower quadrant and marked. The marked site was cleaned and draped in usual sterile manner. 1% lidocaine was injected at puncture site. Through a small skin incision a 5 [place] [employer] catheter was advanced into the peritoneal space. After observing fluid return, stylet was withdrawn and catheter connected to vacuum bottle. After obtaining all fluid and observing no more fluid return, catheter was removed and complete hemostasis achieved at puncture site. Sterile dressing applied postprocedure. Patient tolerated procedure well without immediate complications. FINDINGS: On preliminary ultrasound imaging there is moderate fluid within the peritoneal cavity. Approximately 6 L of clear yellowish/rashida color fluid was removed from the peritoneum. Part of this fluid was sent to lab as per physician's request. US/US paracentesis abd w/image IMPRESSION: Successful ultrasound-guided diagnostic and therapeutic paracentesis performed.
--- NOTE | ~2022-06-25 | MR_ITS ---
EXAMINATION: MRI ABDOMEN AND PELVIS WITH AND WITHOUT CONTRAST CLINICAL INFORMATION: ascites, ?malignancy COMPARISON: Compared to the 06/16 and 06/11/2022 CT scans TECHNIQUE: Multiple routine MRI sequences through the abdomen and pelvis were obtained on a high-field 1.5Tesla MRI. Pre-and postcontrast images with 8 mL of Gadavist intravenous contrast were obtained. This included a dynamic contrast-enhanced technique. FINDINGS: ABDOMEN: Lung bases: The visualized lung bases are unremarkable. Peritoneal space: Large volume of complex ascites is seen on the MRI the ascites appears to represent regions of both free fluid as well as multiloculated T2 bright fluid pockets scattered throughout the peritoneal space. 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 Fluid is seen within the lesser sac. The largest discrete oval-shaped collection abuts the cecum and measures 4.5 x 3.9 x 5.2 cm in size. In this location, this oval-shaped fluid collection structure could represent a partially ruptured mucocele as the likely source of this pseudomyxoma peritonei. Liver: The liver is normal in size, shape, and signal. There is subtle scalloping along the posterior lateral liver edge. No suspicious focal hepatic lesions seen. Specifically no suspicious arterial phase enhancing lesions or suspicious washout of contrast on later phases. No biliary ductal dilatation. Gallbladder: Gallbladder is unremarkable. No suspicious gallstones or filling defects. No gallbladder wall thickening or pericholecystic inflammatory changes. Pancreas: Pancreas is homogeneous in signal. No pancreatic ductal dilatation or obstruction. No peripancreatic inflammatory changes or fluid. Spleen: Multiple small loculated pockets of fluid scalloping the spleen are noted Adrenals: Unremarkable Kidneys: Kidneys are normal in size, shape, and signal. No suspicious renal mass lesion seen. No hydronephrosis or perinephric edema. Other: I do not appreciate any bulky retroperitoneal or mesenteric adenopathy on this study PELVIS: Bladder: Partially decompressed but otherwise unremarkable Pelvic Organs: Unremarkable Bones: Unremarkable MR/MR abdomen wo/w con IMPRESSION: Large volume of complex ascites with multiple loculated pockets of fluid scattered throughout the peritoneal space. 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 Medial to the cecum there is a more discrete oval-shaped fluid collection which may represent an appendiceal mucocele in this location. Ruptured mucocele would be a possible source of pseudomyxoma peritonei and could be clinically correlated.
[2022-06-25 08:00] LABS: MANUAL DIFF FLAG NO
--- NOTE | 2022-06-25 08:00 | PC.NURSE ---
Patient complaining of abdominal pain this morning. According to patient this is something that has been going on for a while now, he has had an abdominal puncture in the past to drain fluid and now the fluid has come back. Patient stating that he needs to get an MRI at some point to find out where the fluid is coming from. Patient having abdominal pain with the fluid collection and it makes it hard for him to take a deep breath. Upon evaluation patient noted to have a distended abdomen that is firm to the touch, patient taking more shallow breaths, lung sounds are clear at this time. IV obtained and labs drawn.
[2022-06-25 08:03] LABS: Basophils Percent Auto 0.7 % (0-2); Eosinophils Absolute Auto 0.1 X10*3/uL (0.0-0.4); Eosinophils Percent Auto 2.1 % (0-4); Hematocrit 39.8 % (42.0-52.0); Imm Gran Abs Auto 0.01 X10*3/uL (0.00-0.03); Imm Gran Pct Auto 0.2 % (0.0-0.4); Lymphocytes Absolute Auto 1.6 X10*3/uL (1.2-4.9); Lymphocytes Percent Auto 26.2 % (20-40); Mean Corpuscular HGB Conc 32.7 g/dl (31.0-36.0); Mean Corpuscular Hemoglobin 28.6 pg (27.0-33.0); Mean Corpuscular Volume 87.7 fL (80.0-98.0); Mean Platelet Volume 8.4 fL (9.4-12.4); Monocytes Absolute Auto 0.5 X10*3/uL (0.1-1.2); Monocytes Percent Auto 8.9 % (2-11); Neutrophils Absolute Auto 3.8 x10*3/uL (2.0-8.3); Neutrophils Percent Auto 61.9 % (45-73); Platelet Count 542 X10*3/uL (160-400); Red Blood Count 4.54 X10*6/uL (4.60-5.80); Red Cell Distribution Width 13.2 % (11.0-16.0); White Blood Count 6.1 X10*3/uL (4.8-10.8)
[2022-06-25 08:20] LABS: Potassium 4.4 mmol/L (3.3-5.1)
[2022-06-25 08:21] LABS: Alanine Aminotransferase 295 U/L (0-40); Albumin Level 3.6 g/dL (3.5-5.0); Alkaline Phosphatase 525 U/L (39-117); Anion Gap 13 (12-20); Aspartate Amino Transferase 146 U/L (5-37); Bilirubin Direct 0.3 mg/dL (0.0-0.5); Bilirubin Total 0.8 mg/dL (0.0-1.0); Blood Urea Nitrogen 9 mg/dL (9-16); Calcium 9.3 mg/dL (8.4-10.2); Carbon Dioxide 29 mmol/L (22-29); Chloride 102 mmol/L (96-108); Creatinine Clr Calc Pharmacy 110.4; Estimated Glomerular Filt Rate > 60; Glucose Random 96 mg/dL (60-115); Lipase 35 U/L (8-78); Sodium 140 mmol/L (135-145); Total Protein 6.2 g/dL (6.5-8.0)
--- NOTE | 2022-06-25 08:53 | ED.ABDPAIN ---
HPI - Abdominal Pain General Chief Complaint: Abdominal Pain Stated Complaint: Abd pain Time Seen by Provider: 06/25/22 07:30 History of Present Illness HPI narrative: Patient is a 51-year-old male with a history of ruptured appendix back in 2020. Had drains in place in [place] subsequently was taken out. Patient has been losing weight. Went to [facility]. Had a paracentesis done here in [place]. There is a question of malignancy noted a by the labs. Patient being followed by . Since being seen in mid May patient has been noticing increasing abdominal swelling discomfort abdominal fullness. Came in for further evaluation. Related Data Previous Rx's Medication Instructions Recorded spironolactone 25 mg tablet 25 mg PO DAILY #30 tabs 06/11/22 ondansetron 4 mg disintegrating 4 mg PO Q6H PRN nausea and 06/16/22 tablet vomiting #14 tabs food supplemt, lactose-reduced 1 ea PO TID 30 days #7,110 mL 06/21/22 (Ensure oral liquid) Allergies Allergy/AdvReac Type Severity Reaction Status Date / Time Penicillins Allergy Rash Verified 06/21/22 10:33 Review of Systems Review of Systems Positive abdominal distension PMFSH Past Medical History Medical History Perforated appendix Surgical History Hx of appendicitis Family History Family History Mother HTN (hypertension) Asthma Social History Social History Alcohol intake: never Smoked in Last 30 Days: No Use of substances other than those prescribed or required for medical reasons: No Advance Directives: No Advance Directives Information Provided: Yes Physical Exam ED Vital Signs: Vital Signs - 24 hr 06/25/22 07:28 06/25/22 07:36 Temperature 98.2 F Pulse Rate 80 82 Respiratory Rate 20 18 Blood Pressure 111/68 110/59 L Pulse Oximetry 100 100 Oxygen Delivery Method Room Air Room Air BMI result Body Mass Index 27.5 Appearance: Alert. Oriented X3. No acute distress. Eyes: Pupils equal, round and reactive to light. ENT: Pharynx normal. Neck: Normal inspection. Neck supple. No lymph nodes noted. No crepitus CVS: Normal heart rate and rhythm. Pulses normal. Normal S1 and S2 Respiratory: No respiratory distress. Breath sounds normal. No Wheezing. No rales Abdomen: Distended abdomen, tympanitic with an enlarged liver Skin: Skin warm and dry. Normal skin color. Normal skin turgor. Extremities: No lower extremity edema. Neurovascular intact to all extremities. No Lacerations. No Rash Neuro: Oriented X 3. No motor deficit. No sensory deficit. Moving all extermities. No slurred speech Medical Decision Making Medical Decision Making [facility] Narrative: Patient's had large amount of ascites during the last visit. Had labs drawn. Question secondary to a myxoma. Presented again for having increasing distention in the abdomen. Patient's liver enzymes are elevated. Likely the same pathology. Patient will require ultrasound paracentesis along with MRI to further delineate the etiology of patient's abdominal distension, ascites. Case was discussed with GI Dr. Banks. Wants patient to be admitted for further evaluation Patient is in stable condition. Awaiting admissions Differential Diagnosis Differential Diagnoses: The differential diagnosis associated with the presentation includes Ascites Consult Healthcare Provider Management of the patient was discussed with: Hospitalist and Compliance Examiner Darren Lab Data [facility] Lab Attestation statement: I reviewed the patient's lab results. 06/25/22 07:55 06/25/22 07:55 Labs: Lab Results 06/25/22 06/25/22 Range/Units 07:55 07:55 WBC 6.1 (4.8-10.8) X10*3/uL RBC 4.54 L (4.60-5.80) X10*6/uL Hgb 13.0 L (14.0-18.0) g/dl Hct 39.8 L (42.0-52.0) % MCV 87.7 (80.0-98.0) fL MCH 28.6 (27.0-33.0) pg MCHC 32.7 (31.0-36.0) g/dl RDW 13.2 (11.0-16.0) % Plt Count 542 H (160-400) X10*3/uL MPV 8.4 L (9.4-12.4) fL Immature Gran % (Auto) 0.2 (0.0-0.4) % Neut % (Auto) 61.9 (45-73) % Lymph % (Auto) 26.2 (20-40) % [place] % (Auto) 8.9 (2-11) % Eos % (Auto) 2.1 (0-4) % Baso % (Auto) 0.7 (0-2) % Lymph # (Auto) 1.6 (1.2-4.9) X10*3/uL [place] # (Auto) 0.5 (0.1-1.2) X10*3/uL Eos # (Auto) 0.1 (0.0-0.4) X10*3/uL Baso # (Auto) 0.0 (0.0-0.2) X10*3/uL Abs Immat Gran (auto) 0.01 (0.00-0.03) X10*3/uL Absolute Neuts (auto) 3.8 (2.0-8.3) x10*3/uL Absolute Nucleated RBC 0.000 (0.0-0.012) X10*3/uL Nucleated RBC % (auto) 0.0 (0.0-0.2) /100WBC Sodium 140 (135-145) mmol/L Potassium 4.4 (3.3-5.1) mmol/L Chloride 102 (96-108) mmol/L Carbon Dioxide 29 (22-29) mmol/L Anion Gap 13 (12-20) BUN 9 (9-16) mg/dL Creatinine 0.81 (0.5-1.4) mg/dL Estim Creat Clear Calc 110.4 Estimated GFR > 60 Random Glucose 96 (60-115) mg/dL Calcium 9.3 (8.4-10.2) mg/dL Total Bilirubin 0.8 (0.0-1.0) mg/dL Direct Bilirubin 0.3 (0.0-0.5) mg/dL AST 146 H (5-37) U/L ALT 295 H (0-40) U/L Alkaline Phosphatase 525 H (39-117) U/L Total Protein 6.2 L (6.5-8.0) g/dL Albumin 3.6 (3.5-5.0) g/dL Lipase 35 (8-78) U/L External Record Review External record reviewed: Inpatient record and Office record Chronic Conditions 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 No history of alcohol use Discharge Plan Discharge Clinical Impression: Ascites Patient Disposition: Admitted As Inpatient Prescriptions: No Action spironolactone 25 mg tablet 25 mg PO DAILY Qty: 30 0RF ondansetron 4 mg tablet,disintegrating 4 mg PO Q6H PRN (Reason: nausea and vomiting) Qty: 14 0RF Ensure Liquid 1 ea PO TID 30 Days Qty: 7110 1RF
[2022-06-25 09:15] LABS: Appearance Urine Clear; Color Urine Dark Yellow; Glucose Urine UA Negative (Negative); Leukocyte Esterase Urine Negative (Negative); Nitrite Urine Negative (Negative); UMIC TRIGGER UACC YES; Urine Blood Trace (Negative); Urine Ketones Negative (Negative); Urine Protein Trace mg/dL (Neg-Trace)
[2022-06-25 09:18] LABS: Bacteria Urine None Seen (None Seen); Hyaline Casts Urine 0-2 /LPF (0-2); Squamous Epithelial Cell Urine 0-2 /HPF (0-2); WBC Urine 0-5 /HPF (0-5)
--- NOTE | 2022-06-25 09:27 | PHA.MEDREC ---
Pharmacy Consult ? Medication Reconciliation Pharmacy has completed the medication reconciliation.
[2022-06-25 09:29] LABS: COVID-19 Test Negative (Negative); IDNOW Serial# 08D9AD1C
[2022-06-25] MEDS: Lidocaine HCl 1 % MPF 5 ML VIAL SUBCUT (11:09)
--- NOTE | 2022-06-25 11:09 | PC.NURSE ---
ultrasound called and told this nurse that patient had 6 liters drawn off his abdomen. Per ultrasound patient stable during procedure.
[2022-06-25 11:41] LABS: MN% 85.3 %; PMN% 14.7 %; WBC Peritoneal Fluid 0.417 X10*3/uL
--- NOTE | 2022-06-25 11:42 | P.HPHOSP_ITS ---
History of Present Illness Date of Service: 06/25/22 Chief Complaint: abd pain 51M PMH complicated appendicitis 2020 (abscesses, perforation) presented with abd pain. patient has been having ongoing abdominal pain and bloating since initial appendicitis episode. He has had workup at [facility] including unremarkable colonoscopy, and diagnosis of small intestine bacterial overgrowth with no improvement after treatment. He has been having worsening distension and pain since January 2022. He reports significant weight loss due to early Satiety inability to tolerate p.o. patient transferred care to [facility] has been seeing Dr. Banks. 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 Patient had initial relief after paracentesis, but after several days started to reaccumulate and have significant pain again so presented again to the ED. Another 6 L were drained with some relief. Review of Systems Review of Systems: Yes all other systems are reviewed and are negative [facility] Medical History Perforated appendix Family History Mother HTN (hypertension) Asthma Surgical History Hx of appendicitis Social History Alcohol intake: never Smoked in Last 30 Days: No Use of substances other than those prescribed or required for medical reasons: No Advance Directives: No Advance Directives Information Provided: Yes Meds Allergies Allergy/AdvReac Type Severity Reaction Status Date / Time Penicillins Allergy Rash Verified 06/21/22 10:33 Active Medications: Current Medications Ondansetron HCl (Ondansetron Odt 4 Mg Tab.Rapdis) 4 mg TRANSLINGU Q6H PRN PRN Reason: nausea and vomiting Pharmacy Consult (Consult Rx Perform Med Rec) 1 each MISCELLANE ONCE PRN PRN Reason: Consult order Spironolactone (Spironolactone 25 Mg Tablet) 25 mg PO DAILY ARIELLE; Protocol Physical Exam Vital Signs and Narrative: Vital Signs: Last Vital Signs Temp 98.2 F 06/25/22 07:28 Pulse 82 06/25/22 07:36 Resp 18 06/25/22 07:36 BP 110/59 L 06/25/22 07:36 Pulse Ox 100 06/25/22 07:36 O2 Del Method Room Air 06/25/22 07:36 BMI result Body Mass Index 27.5 General: AO X 3, no acute distress Resp: CTA bilateral, no accessory muscles used CVS: S1,S2,RRR GI: soft, non tender, no longer distended Neuro: motor grossly intact, alert Psych: appropriate affect, appropriate insight Results Labs 06/25/22 07:55 06/25/22 07:55 Labs: Laboratory Results - last 24 hr 06/25/22 06/25/22 06/25/22 07:55 07:55 08:59 MCV 87.7 MCH 28.6 MCHC 32.7 RDW 13.2 Plt Count 542 H MPV 8.4 L Immature Gran % (Auto) 0.2 Neut % (Auto) 61.9 Lymph % (Auto) 26.2 [place] % (Auto) 8.9 Eos % (Auto) 2.1 Baso % (Auto) 0.7 Lymph # (Auto) 1.6 [place] # (Auto) 0.5 Eos # (Auto) 0.1 Baso # (Auto) 0.0 Abs Immat Gran (auto) 0.01 Absolute Neuts (auto) 3.8 Absolute Nucleated RBC 0.000 Nucleated RBC % (auto) 0.0 PT INR Anion Gap 13 Estim Creat Clear Calc 110.4 Estimated GFR > 60 Random Glucose 96 Calcium 9.3 Total Bilirubin 0.8 Direct Bilirubin 0.3 AST 146 H ALT 295 H Alkaline Phosphatase 525 H Total Protein 6.2 L Albumin 3.6 Lipase 35 Urine Color Urine Appearance Urine pH Ur Specific [place] Urine Protein Urine Glucose (UA) Urine Ketones Urine Blood Urine Nitrite Ur Leukocyte Esterase Urine RBC Urine WBC Ur Squamous Epith Cells Urine Bacteria Hyaline Casts COVID-19 (BEBO) Negative COVID-19 Clin Com See Note 06/25/22 06/25/22 08:59 09:53 MCV MCH MCHC RDW Plt Count MPV Immature Gran % (Auto) Neut % (Auto) Lymph % (Auto) [place] % (Auto) Eos % (Auto) Baso % (Auto) Lymph # (Auto) [place] # (Auto) Eos # (Auto) Baso # (Auto) Abs Immat Gran (auto) Absolute Neuts (auto) Absolute Nucleated RBC Nucleated RBC % (auto) PT 11.0 INR 1.0 Anion Gap Estim Creat Clear Calc Estimated GFR Random Glucose Calcium Total Bilirubin Direct Bilirubin AST ALT Alkaline Phosphatase Total Protein Albumin Lipase Urine Color Dark Yellow Urine Appearance Clear Urine pH 6.0 Ur Specific [place] 1.020 Urine Protein Trace Urine Glucose (UA) Negative Urine Ketones Negative Urine Blood Trace H Urine Nitrite Negative Ur Leukocyte Esterase Negative Urine RBC 6-10 H Urine WBC 0-5 Ur Squamous Epith Cells 0-2 Urine Bacteria None Seen Hyaline Casts 0-2 COVID-19 (BEBO) COVID-19 Clin Com Assessment and Plan (1) Ascites: Status: Acute Plan 51M PMH appendicitis presented with symptomatic ascites and weight loss Symptomatic ascites and ongoing weight loss (moderate protein calorie malnutrition) Follow-up ascitic fluid studies MRI of abdomen with and without contrast GI eval DVT prophylaxis with Lovenox Full code Patient with ongoing painful ascites with rapid reaccumulation making outpatient workup not feasible, therefore, expected require at least 2 midnights inpatient. Time Spent With Patient Time: Total time managing care of this patient today ____ minutes. Quality Stroke Does the patient have a stroke diagnosis?: No VTE Prior VTE?: No VTE Risk Level:: Medical - moderate - high VTE Device Contraindication: Treatment Not Indicated VTE Drug Contraindication: N/A - Med Ordered
[2022-06-25 11:43] LABS: RBC Peritoneal Fluid < 0.002 X10*6/uL
--- NOTE | 2022-06-25 12:40 | PM.GICN ---
History of Present Illness Data of Consult Service Date: 06/25/22 Requesting physician: Christoph Lazaro Primary Care Provider: Unknown Physician HPI Reason for consult: Ascites 51y.o M with PMH of appendectomy 2020 currently undergoing work up for recurrent large volume ascites who is currently admitted to the hospital for pain management and elevated LFTs. Patient was recently seen in the office last week for initial visitation. Briefly, had perforated appendicitis in September 2020 while he was traveling through [place] treated with drainage at that time and eventually with appendectomy Oct 2020 at [facility]. Since a month out he has had abd pain and bloating. Underwent furhter work up including abd imaging which at that time did not show ascites and a colonoscopy Apr 2021 which was reportedly normal. Now since January, has been getting worse despite all the efforts which he describes as diffuse abd pain with distention, loss of appetite and unintentional weight loss. Was seen by GI PA at [facility] and given treatment for possible SIBO. Took for Abx x 2 weeks without any response. Continued to have abd distention and unintentional weight loss. Was eventually seen at [facility] 06/11 and was found to have diffuse ascites, normal appearing liver. Scalloped spleen. Fluid collection around cecum with internal calcifications. He underwent paracentesis with total of 6.2L removed. Fluidanalysis: high total protein of 5. SAAG N/A. 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 He then returned to ER 06/16 for worsening pain and distention. CT abd/pelv with contrast: moderate ascites. Scalloped spleen. Fluid collection at the cecum with calcifications. Since earlier this week, he has had reaccumlation of ascites with significant pain. Although outpatient paracentesis was requested, pt was not able to tolerate the discomfort at home and therefore presented to the ER. He is also noted to have worsening LFTs this admission. At the time of evaluation, he is s/p paracentesis and feels significantly better. Has an appetite now which he has not had the past 2 weeks. No nausea or pain currently. Review of Systems Review of Systems: Yes all other systems are reviewed and are negative [facility] Past Medical History Medical History Perforated appendix Family History Family History Mother HTN (hypertension) Asthma Surgical History Surgical History Hx of appendicitis Social History Social History Household Members: Spouse and Children Household Members Other:: 5 Housing: House Do you presently have visiting nurse or other home services: No Alcohol intake: never Patient Tobacco Use Status: Never used Tobacco Smoked in Last 30 Days: No Use of substances other than those prescribed or required for medical reasons: No Have you been hit, kicked, punched, or otherwise hurt by someone within the past year? If so, by whom?: No Do you feel safe in your current relationship?: Yes Is there a partner from a previous relationship who is making you feel unsafe now?: No Are you made to feel afraid or neglected: No Advance Directives: No Advance Directives Information Provided: Yes Do you have thoughts of harming others: None Do you have a plan to hurt others: No Plan Recently lost weight without trying: Yes How much weight loss: 24-33 pounds Eating poorly because of decreased appetite: Yes Nutrition screen score: 6 Nutrition Risks: No Nutritional Risk Poor oral hygiene: No Meds Allergies Allergy/AdvReac Type Severity Reaction Status Date / Time Penicillins Allergy Rash Verified 06/21/22 10:33 Active Medications: Current Medications Enoxaparin Sodium (Enoxaparin Sodium 40 Mg/0.4 Ml Syringe) 40 mg SUBCUT Q24H ARIELLE Ondansetron HCl (Ondansetron Odt 4 Mg Tab.Rapdis) 4 mg TRANSLINGU Q6H PRN PRN Reason: nausea and vomiting Pharmacy Consult (Consult Rx Perform Med Rec) 1 each MISCELLANE ONCE PRN PRN Reason: Consult order Sodium Chloride (0.9 % Sodium Chloride Flush 3 Ml Syringe) 3 ml IVFLUSH QSHIFT ARIELLE Spironolactone (Spironolactone 25 Mg Tablet) 25 mg PO DAILY ARIELLE; Protocol Physical Exam Vital Signs: Vital Signs: Last Vital Signs Temp 98.2 F 06/25/22 07:28 Pulse 80 06/25/22 12:12 Resp 15 06/25/22 12:12 BP 118/66 06/25/22 12:12 Pulse Ox 100 06/25/22 12:12 O2 Del Method Room Air 06/25/22 12:12 BMI result Body Mass Index 27.5 Gen Appear: NAD, undernourished HEENT: No scleral icterus, significant bitemporal wasting noted Chest: CTA CVS: Regular S1/S2 no murmurs Abd: soft, nontender, nondistended, bowel sounds normoactive Ext: No peripheral edema bilaterally Neuro: A/Ox3, no asterixis Results Labs 06/25/22 07:55 06/25/22 07:55 Labs: Short CBC 06/25/22 Range/Units 07:55 WBC 6.1 (4.8-10.8) X10*3/uL Hgb 13.0 L (14.0-18.0) g/dl Hct 39.8 L (42.0-52.0) % Plt Count 542 H (160-400) X10*3/uL BMP 06/25/22 07:55 Sodium 140 Potassium 4.4 Chloride 102 Carbon Dioxide 29 BUN 9 Creatinine 0.81 Calcium 9.3 Liver Function 06/25/22 Range/Units 07:55 Total Bilirubin 0.8 (0.0-1.0) mg/dL Direct Bilirubin 0.3 (0.0-0.5) mg/dL AST 146 H (5-37) U/L ALT 295 H (0-40) U/L Alkaline Phosphatase 525 H (39-117) U/L Albumin 3.6 (3.5-5.0) g/dL Urine 06/25/22 Range/Units 08:59 Urine Color Dark Yellow Urine Appearance Clear Urine pH 6.0 (5.0-9.0) Ur Specific [place] 1.020 (1.005-1.025) Urine Protein Trace (Neg-Trace) mg/dL Urine Glucose (UA) Negative (Negative) mg/dL Assessment and Plan (1) Ascites: Status: Acute (2) Elevated LFTs: Status: Acute Plan His symptoms have a very clear temporality the from his surgery for perforated appendicitis.? 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 His CEA was high on outpatient labs. Has a calcified fluid collection around the tip of the cecum and I am concerned this could have been the primary lesion. Request release from [facility] in process for appendectomy path. Pt currently admitted for pain management and LFTs also high this admission. Plan: - Fluid studies ordered on ascitic fluid: cell count, cytology, albumin, total protein, CEA, ADA, AFB smear and culture. - Urgent MRI abd/pel with and without contrast - Hepatitis serology ordered - No restriction to diet from GI standpoint. Pls add protein shakes TID as pt very malnourished. - Path from appendectomy requested from [facility] - If work up confirms pseudomyxoma, will likely need surg input for laproscopic peritoneal bx. Thank you for allowing me to participate in his care. Will follow. Please do not hesitate to reach out for any questions or concerns. Time Spent With Patient Time: Total time managing care of this patient today ____ minutes. Procedures Date of Service Date of Service: 06/25/22
[2022-06-25 14:17] LABS: BF Shift QC OK YES; Basophils Peritoneal Fl 1 %; Eosinophils Peritoneal Fl 1 %; Lymphocyte Peritoneal Fl 34 %; Man Diluent Bkgrd OK YES; Monocytes Peritoneal Fl 1 %; Neutrophils Peritoneal Fluid 1 %; Other Peritioneal Fl 62 %
--- NOTE | 2022-06-25 15:31 | MHC.CLN ---
NUTRITION CONSULT FOR UNPLANNED WEIGHT LOSS. REPORTS USUAL WEIGHT 212#. SOME PLANNED WEIGHT LOSS PRIOR TO JANUARY WITH DIET AND EXERCISE. REPORTS UNPLANNED WEIGHT LOSS SINCE JANUARY (-12.5%) DUE TO FEELING FULL, BLOATED, WITH CURRENT AXABLP=177#. DIET=REGULAR. ADDED ENSURE TID PER CONVERSATION WITH PATIENT. SUPPLEMENT PROVIDES ADDITIONAL 1050 KCALS, 60 G PROTEIN. PATIENT WITH REACCUMULATING ASCITES AND PARACENTESIS. FOLLOW FOR MEDICAL DX, INTAKE AND WEIGHT.
[2022-06-25] MEDS: 0.9 % Sodium Chloride Flush 3 ML SYRINGE IVFLUSH ×2 (16:56→20:17)
[2022-06-25] MEDS: Morphine Sulfate 2 MG/ML CARTRIDGE IVPUSH (18:44)
[2022-06-26 02:37] LABS: Albumin Peritoneal Fluid 2.8 GM/DL; Total Protein Peritoneal Fluid 4.4 GM/DL
[2022-06-26 02:55] VITALS: BP 101/61; PULSE 87; RESP 18; TEMP 36.4; O2SAT 98
[2022-06-26 05:47] LABS: Hematocrit 35.7 % (42.0-52.0); Hemoglobin 11.8 g/dl (14.0-18.0); Mean Corpuscular HGB Conc 33.1 g/dl (31.0-36.0); Mean Corpuscular Volume 87.7 fL (80.0-98.0); Mean Platelet Volume 8.8 fL (9.4-12.4); Platelet Count 505 X10*3/uL (160-400); Red Blood Count 4.07 X10*6/uL (4.60-5.80); Red Cell Distribution Width 13.2 % (11.0-16.0); White Blood Count 6.8 X10*3/uL (4.8-10.8)
[2022-06-26 06:08] LABS: Alanine Aminotransferase 312 U/L (0-40); Alkaline Phosphatase 476 U/L (39-117); Anion Gap 12 (12-20); Aspartate Amino Transferase 142 U/L (5-37); Bilirubin Direct 0.2 mg/dL (0.0-0.5); Bilirubin Total 0.6 mg/dL (0.0-1.0); Blood Urea Nitrogen 9 mg/dL (9-16); Calcium 8.9 mg/dL (8.4-10.2); Carbon Dioxide 28 mmol/L (22-29); Chloride 104 mmol/L (96-108); Creatinine Clr Calc Pharmacy 131.5; Estimated Glomerular Filt Rate > 60; Glucose Fasting 106 mg/dL (60-99); Potassium 4.2 mmol/L (3.3-5.1); Sodium 140 mmol/L (135-145)
[2022-06-26 07:45] VITALS: BP 111/64; PULSE 63; RESP 17; TEMP 36.3; O2SAT 98
--- NOTE | 2022-06-26 10:04 | P.PNIM_ITS ---
Subjective Subjective Date of Service: 06/26/22 Interval History: improved abd pain Physical Exam Vital Signs: Vital Signs: Last Vital Signs Temp 97.3 F 06/26/22 07:45 Pulse 63 06/26/22 07:45 Resp 17 06/26/22 07:45 BP 111/64 06/26/22 07:45 Pulse Ox 98 06/26/22 07:45 O2 Del Method Room Air 06/26/22 07:45 BMI result Body Mass Index 27.5 General: AO X 3, no acute distress Resp: CTA bilateral, no accessory muscles used CVS: S1,S2,RRR GI: soft, non tender, non distended Neuro: motor grossly intact, alert Psych: appropriate affect, appropriate insight Objective Data Active Medications Enoxaparin Sodium (Enoxaparin Sodium 40 Mg/0.4 Ml Syringe) 40 mg SUBCUT Q24H ARIELLE Morphine Sulfate (Morphine Sulfate 2 Mg/Ml Cartridge) 2 mg IVPUSH Q4H PRN; Protocol PRN Reason: Pain, Moderate (Pain Scale 4-6 Last Admin: 06/25/22 18:44 Dose: 2 mg Documented By: GREGORIA Ondansetron HCl (Ondansetron Odt 4 Mg Tab.Rapdis) 4 mg TRANSLINGU Q6H PRN PRN Reason: nausea and vomiting Pharmacy Consult (Consult Rx Perform Med Rec) 1 each MISCELLANE ONCE PRN PRN Reason: Consult order Sodium Chloride (0.9 % Sodium Chloride Flush 3 Ml Syringe) 3 ml IVFLUSH QSHIFT [facility] Last Admin: 06/25/22 20:17 Dose: 3 ml Documented By: LEE Spironolactone (Spironolactone 25 Mg Tablet) 25 mg PO DAILY [facility]; Protocol Labs 06/26/22 05:06 06/26/22 05:06 Labs: Laboratory Results - last 24 hr 06/25/22 06/25/22 06/25/22 09:53 10:30 10:30 MCV MCH MCHC RDW Plt Count MPV Absolute Nucleated RBC Nucleated RBC % (auto) PT 11.0 INR 1.0 Anion Gap Estim Creat Clear Calc Estimated GFR Fasting Glucose Calcium Total Bilirubin Direct Bilirubin AST ALT Alkaline Phosphatase Total Protein Albumin Peritoneal WBC 0.417 Peritoneal RBC < 0.002 Periton Neutrophils 1 Periton Lymphocytes 34 Peritoneal Monocytes 1 Peritoneal Eosinophils 1 Peritoneal Basophils 1 Peritoneal Other Cells 62 Peritoneal Tot Protein 4.4 Peritoneal Albumin 2.8 06/26/22 06/26/22 05:06 05:06 MCV 87.7 MCH 29.0 MCHC 33.1 RDW 13.2 Plt Count 505 H MPV 8.8 L Absolute Nucleated RBC 0.000 Nucleated RBC % (auto) 0.0 PT INR Anion Gap 12 Estim Creat Clear Calc 131.5 Estimated GFR > 60 Fasting Glucose 106 H Calcium 8.9 Total Bilirubin 0.6 Direct Bilirubin 0.2 AST 142 H ALT 312 H Alkaline Phosphatase 476 H Total Protein 5.0 L Albumin 3.0 L Peritoneal WBC Peritoneal RBC Periton Neutrophils Periton Lymphocytes Peritoneal Monocytes Peritoneal Eosinophils Peritoneal Basophils Peritoneal Other Cells Peritoneal Tot Protein Peritoneal Albumin Microbiology Microbiology Results: Microbiology 06/25/22 10:30 Gram Stain - Final Paracentesis Fluid Assessment and Plan (1) Elevated LFTs: Status: Acute Plan 51M PMH appendicitis presented with symptomatic ascites and weight loss Symptomatic ascites and ongoing weight loss (moderate protein calorie malnutrition) MRI suspicious for pseudomyxoma peritonei GI follow up surgery consult for biopsy DVT prophylaxis with Lovenox Full code Time Spent With Patient Time: Total time managing care of this patient today ____ minutes. Quality Stroke Does the patient have a stroke diagnosis?: No VTE Prior VTE?: No VTE Risk Level:: Medical - moderate - high VTE Device Contraindication: Treatment Not Indicated VTE Drug Contraindication: N/A - Med Ordered
[2022-06-26] MEDS: Spironolactone 25 MG TABLET PO (10:18)
[2022-06-26] MEDS: Enoxaparin Sodium 40 MG/0.4 ML SYRINGE SUBCUT (10:19)
[2022-06-26] MEDS: 0.9 % Sodium Chloride Flush 3 ML SYRINGE IVFLUSH ×3 (10:19→19:26)
--- NOTE | 2022-06-26 10:21 | P.CONGS_ITS ---
History of Present Illness Consult details Consult date: 06/26/22 Narrative: 51M admitted for ascites. He had laparoscopic appendectomy in 2020 in [facility] which was described to be a complicated appendicitis. He says that since that time, he has had problems with bloating and abdominal discomfort. He had been following with his doctors in [facility] and was diagnosed to have small bowel bacterial overgrowth. He says he had a colonoscopy as well. However, since about 6 months ago, he has been noticing worsening of his abdominal symptoms. He says his abdomen had started to appear more protruberant and he had been steadily losing weight. He eventually switched to GI here in [place]. He had a CT scan showing ascites, and he had paracentesis 2 weeks ago which was not definitive although suspicious for malginant ascites. He had improved after paracentesis but had worsening ag ain of the same symptoms. He was admitted and had a repeat paracentesis yesterday. His MRI showed ascites again, suspicious for pseudomyxoma peritonei. He feels better today after paracentesis. He is tolerating diet and has good BMs. Review of Systems Constitutional: Constitutional: Denies chills, Denies fever(s) and Reports weight loss Cardiovascular: Cardiovascular: Reports Abdominal Distension, Denies chest pain and Denies chest pain at rest Respiratory: Respiratory: Denies cough Gastrointestinal: Gastrointestinal: Denies hematochezia, Denies constipation and Denies diarrhea Genitourinary: Genitourinary: Denies difficulty urinating Neurologic: Denies behavioral changes and Denies focal weakness Psychiatric: Psychiatric: Denies behavioral changes [facility] Past Medical History Medical History Perforated appendix Family History Family History Mother HTN (hypertension) Asthma Surgical History Surgical History Hx of appendicitis Social History Social History (Updated 06/28/22 @ 09:33 by Cristiana Lockhart) Household Members: Spouse and Children Household Members Other:: 5 Housing: House Do you presently have visiting nurse or other home services: No Alcohol intake: never Patient Tobacco Use Status: Never used Tobacco Current occupational status: employed Meds Allergies Allergy/AdvReac Type Severity Reaction Status Date / Time Penicillins Allergy Rash Verified 06/28/22 09:33 Active Medications: Current Medications Enoxaparin Sodium (Enoxaparin Sodium 40 Mg/0.4 Ml Syringe) 40 mg SUBCUT Q24H [facility] Last Admin: 06/26/22 10:19 Dose: 40 mg Morphine Sulfate (Morphine Sulfate 2 Mg/Ml Cartridge) 2 mg IVPUSH Q4H PRN; P rotocol PRN Reason: Pain, Moderate (Pain Scale 4-6 Last Admin: 06/25/22 18:44 Dose: 2 mg Ondansetron HCl (Ondansetron Odt 4 Mg Tab.Rapdis) 4 mg TRANSLINGU Q6H PRN PRN Reason: nausea and vomiting Pharmacy Consult (Consult Rx Perform Med Rec) 1 each MISCELLANE ONCE PRN PRN Reason: Consult order Sodium Chloride (0.9 % Sodium Chloride Flush 3 Ml Syringe) 3 ml IVFLUSH QSHIFT [facility] Last Admin: 06/26/22 10:19 Dose: 3 ml Spironolactone (Spironolactone 25 Mg Tablet) 25 mg PO DAILY [facility]; Protocol Last Admin: 06/26/22 10:18 Dose: 25 mg Physical Exam Vital Signs: Vital Signs: Last Vital Signs Temp 97.3 F 06/26/22 07:45 Pulse 63 06/26/22 07:45 Resp 17 06/26/22 07:45 BP 111/64 06/26/22 07:45 Pulse Ox 98 06/26/22 07:45 O2 Del Method Room Air 06/26/22 07:45 BMI result Body Mass Index 27.5 Const: General: comfortable and no acute distress Orientation/consciousness: patient oriented x3 Neck: Neck: Yes no lymphadenopathy Resp: Auscultation: clear to auscultation bilaterally Cardio: Rhythm: regular rhythm GI: Palpation (GI): Soft to palpation, nontender and no guarding Neuro: General: patient oriented x3 Results Labs 06/26/22 05:06 06/26/22 05:06 Labs: Abnormal lab results 06/26/22 06/26/22 Range/Units 05:06 05:06 RBC 4.07 L (4.60-5.80) X10*6/uL Hgb 11.8 L (14.0-18.0) g/dl Hct 35.7 L (42.0-52.0) % Plt Count 505 H (160-400) X10*3/uL MPV 8.8 L (9.4-12.4) fL Fasting Glucose 106 H (60-99) mg/dL AST 142 H (5-37) U/L ALT 312 H (0-40) U/L Alkaline Phosphatase 476 H (39-117) U/L Total Protein 5.0 L (6.5-8.0) g/dL Albumin 3.0 L (3.5-5.0) g/dL Short CBC 06/26/22 Range/Units 05:06 WBC 6.8 (4.8-10.8) X10*3/uL Hgb 11.8 L (14.0-18.0) g/dl Hct 35.7 L (42.0-52.0) % Plt Count 505 H (160-400) X10*3/uL BMP 06/26/22 05:06 Sodium 140 Potassium 4.2 Chloride 104 Carbon Dioxide 28 BUN 9 Creatinine 0.68 Calcium 8.9 Liver Function 06/26/22 Range/Units 05:06 Total Bilirubin 0.6 (0.0-1.0) mg/dL Direct Bilirubin 0.2 (0.0-0.5) mg/dL AST 142 H (5-37) U/L ALT 312 H (0-40) U/L Alkaline Phosphatase 476 H (39-117) U/L Albumin 3.0 L (3.5-5.0) g/dL Urine 06/25/22 Range/Units 08:59 Urine Color Dark Yellow Urine Appearance Clear Urine pH 6.0 (5.0-9.0) Ur Specific [place] 1.020 (1.005-1.025) Urine Protein Trace (Neg-Trace) mg/dL Urine Glucose (UA) Negative (Negative) mg/dL All other labs normal. Laboratory Results WBC 6.8 X10*3/uL (4.8-10.8) 06/26/22 05:06 RBC 4.07 X10*6/uL (4.60-5.80) L 06/26/22 05:06 Hgb 11.8 g/dl (14.0-18.0) L 06/26/22 05:06 Hct 35.7 % (42.0-52.0) L 06/26/22 05:06 MCV 87.7 fL (80.0-98.0) 06/26/22 05:06 MCH 29.0 pg (27.0-33.0) 06/26/22 05:06 MCHC 33.1 g/dl (31.0-36.0) 06/26/22 05:06 RDW 13.2 % (11.0-16.0) 06/26/22 05:06 Plt Count 505 X10*3/uL (160-400) H 06/26/22 05:06 MPV 8.8 fL (9.4-12.4) L 06/26/22 05:06 Immature Gran % (Auto) 0.2 % (0.0-0.4) 06/25/22 07:55 Neut % (Auto) 61.9 % (45-73) 06/25/22 07:55 Lymph % (Auto) 26.2 % (20-40) 06/25/22 07:55 [place] % (Auto) 8.9 % (2-11) 06/25/22 07:55 Eos % (Auto) 2.1 % (0-4) 06/25/22 07:55 Baso % (Auto) 0.7 % (0-2) 06/25/22 07:55 Lymph # (Auto) 1.6 X10*3/uL (1.2-4.9) 06/25/22 07:55 [place] # (Auto) 0.5 X10*3/uL (0.1-1.2) 06/25/22 07:55 Eos # (Auto) 0.1 X10*3/uL (0.0-0.4) 06/25/22 07:55 Baso # (Auto) 0.0 X10*3/uL (0.0-0.2) 06/25/22 07:55 Abs Immat Gran (auto) 0.01 X10*3/uL (0.00-0.03) 06/25/22 07:55 Absolute Neuts (auto) 3.8 x10*3/uL (2.0-8.3) 06/25/22 07:55 Absolute Nucleated RBC 0.000 X10*3/uL (0.0-0.012) 06/26/22 05:06 Nucleated RBC % (auto) 0.0 /100WBC (0.0-0.2) 06/26/22 05:06 PT 11.0 SEC (10.0-13.1) 06/25/22 09:53 INR 1.0 (0.9-1.1) 06/25/22 09:53 Sodium 140 mmol/L (135-145) 06/26/22 05:06 Potassium 4.2 mmol/L (3.3-5.1) 06/26/22 05:06 Chloride 104 mmol/L (96-108) 06/26/22 05:06 Carbon Dioxide 28 mmol/L (22-29) 06/26/22 05:06 Anion Gap 12 (12-20) 06/26/22 05:06 BUN 9 mg/dL (9-16) 06/26/22 05:06 Creatinine 0.68 mg/dL (0.5-1.4) 06/26/22 05:06 Estim Creat Clear Calc 131.5 06/26/22 05:06 Estimated GFR > 60 06/26/22 05:06 Random Glucose 96 mg/dL (60-115) 06/25/22 07:55 Fasting Glucose 106 mg/dL (60-99) H 06/26/22 05:06 Calcium 8.9 mg/dL (8.4-10.2) 06/26/22 05:06 Total Bilirubin 0.6 mg/dL (0.0-1.0) 06/26/22 05:06 Direct Bilirubin 0.2 mg/dL (0.0-0.5) 06/26/22 05:06 AST 142 U/L (5-37) H 06/26/22 05:06 ALT 312 U/L (0-40) H 06/26/22 05:06 Alkaline Phosphatase 476 U/L (39-117) H 06/26/22 05:06 Total Protein 5.0 g/dL (6.5-8.0) L 06/26/22 05:06 Albumin 3.0 g/dL (3.5-5.0) L 06/26/22 05:06 Lipase 35 U/L (8-78) 06/25/22 07:55 Urine Color Dark Yellow 06/25/22 08:59 Urine Appearance Clear 06/25/22 08:59 Urine pH 6.0 (5.0-9.0) 06/25/22 08:59 Ur Specific [place] 1.020 (1.005-1.025) 06/25/22 08:59 Urine Protein Trace mg/dL (Neg-Trace) 06/25/22 08:59 Urine Glucose (UA) Negative mg/dL (Negative) 06/25/22 08:59 Urine Ketones Negative mg/dL (Negative) 06/25/22 08:59 Urine Blood Trace (Negative) H 06/25/22 08:59 Urine Nitrite Negative (Negative) 06/25/22 08:59 Ur Leukocyte Esterase Negative (Negative) 06/25/22 08:59 Urine RBC 6-10 /HPF (0-2) H 06/25/22 08:59 Urine WBC 0-5 /HPF (0-5) 06/25/22 08:59 Ur Squamous Epith Cells 0-2 /HPF (0-2) 06/25/22 08:59 Urine Bacteria None Seen (None Seen) 06/25/22 08:59 Hyaline Casts 0-2 /LPF (0-2) 06/25/22 08:59 Peritoneal WBC 0.417 X10*3/uL 06/25/22 10:30 Peritoneal RBC < 0.002 X10*6/uL 06/25/22 10:30 Periton Neutrophils 1 % 06/25/22 10:30 Periton Lymphocytes 34 % 06/25/22 10:30 Peritoneal Monocytes 1 % 06/25/22 10:30 Peritoneal Eosinophils 1 % 06/25/22 10:30 Peritoneal Basophils 1 % 06/25/22 10:30 Peritoneal Other Cells 62 % 06/25/22 10:30 Peritoneal Tot Protein 4.4 GM/DL 06/25/22 10:30 Peritoneal Albumin 2.8 GM/DL 06/25/22 10:30 COVID-19 (BEBO) Negative (Negative) 06/25/22 08:59 COVID-19 Clin Com See Note 06/25/22 08:59 Impressions Abdomen MRI 06/25/22 16:00 IMPRESSION: Large volume of complex ascites with multiple loculated pockets of fluid scattered throughout the peritoneal space. 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 Medial to the cecum there is a more discrete oval-shaped fluid collection which may represent an appendiceal mucocele in this location. Ruptured mucocele would be a possible source of pseudomyxoma peritonei and could be clinically correlated. Pelvis MRI 06/25/22 16:00 IMPRESSION: Large volume of complex ascites with multiple loculated pockets of fluid scattered throughout the peritoneal space. 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 Medial to the cecum there is a more discrete oval-shaped fluid collection which may represent an appendiceal mucocele in this location. Ruptured mucocele would be a possible source of pseudomyxoma peritonei and could be clinically correlated. Assessment and Plan (1) Ascites: Status: Acute Plan He has large volume ascites suggestive of pseudomyxoma on MRI with note of scall oping of the liver surface. There may be a mucoele adjacent to his cecum. He had undergone repeat paracentesis yesterday. Hopefully, the cytology testing will be more diagnostic. His abdominal exam is otherwise benign. If his ascites cytology does not reveal a diagnosis, we may consider other modes of establishing tissue diagnosis. Time Spent With Patient Time: Total time managing care of this patient today ____ minutes. Procedures Date of Service Date of Service: 06/26/22
--- NOTE | 2022-06-26 15:29 | MHC.CM.PN ---
PT REPORTS HE LIVES WITH HIS AND CHILDREN HE IS INDEPENDENT, WORKS AND DRIVES PT HAS NO DME AND NO SERVICES PT REPORTS HE HAS A HCP, COPY REQUESTED HE SAYS HIS PCP IS AT [facility] HE IS MIKAYLA HURLEY X 3 DCP: HOME NO SERVICES PT TO ARRANGE TRANSPORT
--- NOTE | 2022-06-26 15:46 | PM.GIPN ---
Subjective Subjective Date of Service: 06/26/22 Critical Care Time (minutes): 0 Comment: Pt seen and evaluated at bedside. COmfortable and nontoxic appearing. No abd discomfort reported. Physical Exam Vital Signs: Vital Signs: Last Vital Signs Temp 97.2 F 06/26/22 19:42 Pulse 74 06/26/22 19:42 Resp 16 06/26/22 19:42 BP 111/64 06/26/22 19:42 Pulse Ox 100 06/26/22 19:42 O2 Del Method Room Air 06/26/22 19:42 BMI result Body Mass Index 27.5 Gen appear: NAD Abd: soft, nontender, nondistended Objective Data Labs 06/26/22 05:06 06/26/22 05:06 Labs: Laboratory Results - last 24 hr 06/25/22 06/26/22 06/26/22 10:30 05:06 05:06 WBC 6.8 RBC 4.07 L Hgb 11.8 L Hct 35.7 L MCV 87.7 MCH 29.0 MCHC 33.1 RDW 13.2 Plt Count 505 H MPV 8.8 L Absolute Nucleated RBC 0.000 Nucleated RBC % (auto) 0.0 Sodium 140 Potassium 4.2 Chloride 104 Carbon Dioxide 28 Anion Gap 12 BUN 9 Creatinine 0.68 Estim Creat Clear Calc 131.5 Estimated GFR > 60 Fasting Glucose 106 H Calcium 8.9 Total Bilirubin 0.6 Direct Bilirubin 0.2 AST 142 H ALT 312 H Alkaline Phosphatase 476 H Total Protein 5.0 L Albumin 3.0 L Peritoneal Tot Protein 4.4 Peritoneal Albumin 2.8 Microbiology Microbiology Results: Microbiology 06/25/22 10:30 Paracentesis Fluid Gram Stain - Final 06/25/22 10:30 Paracentesis Fluid Routine Culture - Preliminary No growth to date. 06/25/22 10:30 Paracentesis Fluid Anaerobic Culture - Preliminary No growth to date. Procedures Date of Service Date of Service: 06/26/22 Progress Note: A&P Assessment and plan (1) Elevated LFTs: Status: Acute (2) Ascites: Status: Acute Plan Reviewed findings of the MRI which are also consistent with the clinical suspicion of pseudomyxoma peritonei. Appreciate input from surgery as well. CEA serum elevated to 26. Cytology and testing pending on ascites. If no immediate plans for diagnostic lap +/- debulking from surgical standpoint, can be discharged with outpatient follow up. He will likely need periodic paracentesis until definitive management, as mucinous ascites will likely not respond to diuretic therapy. Referral for outpatient para has already been sent out 06/23. Time Spent With Patient Time: Total time managing care of this patient today ____ minutes. Quality Stroke Does the patient have a stroke diagnosis?: No VTE Prior VTE?: No VTE Risk Level:: Medical - moderate - high VTE Device Contraindication: Treatment Not Indicated VTE Drug Contraindication: N/A - Med Ordered
[2022-06-26 15:53] VITALS: BP 113/61; PULSE 83; RESP 16; TEMP 36.3; O2SAT 98
[2022-06-26] MEDS: polyethylene glycoL 3350 17 GM POWD.PACK PO (15:55)
[2022-06-26 19:42] VITALS: BP 111/64; PULSE 74; RESP 16; TEMP 36.2; O2SAT 100
[2022-06-26 23:50] VITALS: BP 104/57; PULSE 74; RESP 16; TEMP 36.4; O2SAT 98
[2022-06-27 07:55] VITALS: BP 107/61; PULSE 74; RESP 16; TEMP 36.9; O2SAT 97
[2022-06-27] MEDS: Spironolactone 25 MG TABLET PO (09:35)
--- NOTE | 2022-06-27 09:57 | MHC.CM.PN ---
PT WILL DC HOME TODAY WITH NO SERVICES FAMILY TO TRANSPORT
--- NOTE | 2022-06-27 09:59 | P.DS_ITS ---
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 patient has been having ongoing abdominal pain and bloating since initial appendicitis episode.? He has had workup at [facility] including unremarkable colonoscopy, and diagnosis of small intestine bacterial overgrowth with no improvement after treatment.? He has been having worsening distension and pain since January 2022.? He reports significant weight loss due to early Satiety inability to tolerate p.o. patient transferred care to [facility] has been seeing Dr. Banks.? On 06/11/2022 presented to the ED and found to have a ascites which was drained for 6 L, cytology? suspicious for adenocarcinoma of GI origin but cannot exclude sampling of benign GI epithelium/perforation.? Patient had initial relief after paracentesis, but after several days started to reaccumulate and have significant pain again so presented again to the ED.? Another 6 L were drained with some relief. hospital course: Patient was admitted for symptomatic ascites and ongoing weight loss with moderate protein calorie malnutrition. Ascitic fluid studies from 06/11/2022 were suspicious for pseudomyxoma peritonei, MRI was done which also was suspicious for the same diagnosis. Patient's ascitic fluid was drained and he is feeling better. Will follow-up closely with Oncology for further management. Pathology from 2nd paracentesis is pending and should be followed up as well. Patient will follow-up with Radiology as outpatient for elective paracentesis as needed. Time Spent with Patient Time attestation: Total time managing care of this patient today ____ minutes. Discharge coordination time: Greater than 30 minutes Quality: Safe Use of Opioids Does Pt have an Active Cancer Diagnosis on the Problem List?: Yes Opioid Measure Date for CMS Report: 05/28/22 Opioid Measure Time for CMS Report: 10:39 Quality: Stroke Does the patient have a stroke diagnosis?: No Physical Exam Vital Signs: Vital Signs: Last Vital Signs Temp 98.4 F 06/27/22 07:55 Pulse 74 06/27/22 07:55 Resp 16 06/27/22 07:55 BP 107/61 06/27/22 07:55 Pulse Ox 97 06/27/22 07:55 O2 Del Method Room Air 06/27/22 07:55 BMI result Body Mass Index 27.5 General: AO X 3, no acute distress Resp: CTA bilateral, no accessory muscles used CVS: S1,S2,RRR GI: soft, non tender, non distended Neuro: motor grossly intact, alert Psych: appropriate affect, appropriate insight DS: Data Data Completed and Pending Pending studies at discharge: Pending at discharge 06/25/22 12:09 Cytology [PTH] Urgent Labs on day of discharge: Preliminary micro results at discharge 06/25/22 10:30 Anaerobic Culture - Preliminary Paracentesis Fluid No growth to date. 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 Referrals: Alexa Romano MD [Physician] - 1 Day (suspected new diagnosis of pseudomyxoma peritonei) Physician,Liz Aguiar [Primary Care Provider] - 1 Week Discharge Medications: Continued ondansetron 4 mg tablet,disintegrating 4 mg PO Q6H PRN (Reason: nausea and vomiting) Qty: 14 0RF Discontinued spironolactone 25 mg tablet 25 mg PO DAILY Qty: 30 0RF Discharge Orders: Discharge Order (Routine); Ordered 06/27/22 Ordered By: Christoph Lazaro Diet: Advance to usual diet Activity on Discharge: As tolerated Stand Alone Forms: Patient Portal Discharge page Care Plan Goals: manage pseudomyxoma peritonei Health Concerns: 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 please call oncology tomorrow to set up appointment to continue management. Assessment: see above
[2022-06-28 08:39] LABS: HBS Num1 8.12 mIU/mL (0-7.99); HBc Num1 0.07 S/CO (0.00-0.79); HBsAGNum1 0.24 S/CO (0.00-0.99); Hepatitis B Core Antibody Nonreactive (Nonreactive); Hepatitis B Surface Antigen Negative (Negative); ~HepC Num1 0.06 S/CO (0.00-0.79); ~Hepatitis C Antibody Nonreactive (Nonreactive)
[2022-06-28 08:42] LABS: Hepatitis A Antibody IgG REACTIVE (Nonreactive); ~Hepatitis A Antibody IgG 9.76 S/CO (0.00-0.99)
[2022-06-28 10:03] LABS: HBS Num2 8.09 mIU/mL (0-7.99); HBS Num3 7.55 mIU/mL (0-7.99); ~Hepatitis B Surface Antibody GRAYZONE (Nonreactive)
== END 2022-06-27 10:44 | disposition home or self-care (01) | DRG 240 ==
LOC: HO.ED 09:45 → HO.EDOVER 11:58 → HO.S3 12:00
PROVIDERS: Internal Medicine; Radiology Diagnostic Radiology; Admitting Provider Internal Medicine; Emergency Provider Emergency Medicine Emergency Medical Services; PCP Physician Assistant; Visit Provider Internal Medicine
PROC: 0W9G30Z Drainage of Peritoneal Cavity with Drainage Device, Percutaneous Approach (ICD-10-PCS; principal; 2022-06-25 10:00)
DX: C78.6 Secondary malignant neoplasm of retroperitoneum and peritoneum (principal); E44.0 Moderate protein-calorie malnutrition; R18.8 Other ascites; Z20.822 Contact with and (suspected) exposure to COVID-19; Z88.0 Allergy status to penicillin; Z68.27 Body mass index [BMI] 27.0-27.9, adult
CPT/HCPCS: 36415; 49083; 72197; 74183; 80048; 80076; 81001; 82042; 83690; 84157; 84311; 85025; 85027; 85610; 86704; 86706; 86708; 86803; 87070; 87073; 87116; 87205; 87206; 87340; 87635; 88112; 89051; 99285; A9585; J1650; J2270

== ENCOUNTER 2022-07-04 05:28 | Emergency (ER) | payer MEDICAID, SELFPAY ==
[2022-07-04 05:37] VITALS: BP 107/58; PULSE 69; RESP 16; TEMP 36.4; BMI 25.0
--- NOTE | 2022-07-04 05:58 | PC.NURSE ---
IV established, labs obtained. MD aware. Continue to monitor.
[2022-07-04 06:00] VITALS: BP 96/48; PULSE 75; RESP 16; TEMP 36.7; O2SAT 98
[2022-07-04 06:00] LABS: MANUAL DIFF FLAG NO
[2022-07-04 06:01] LABS: Basophils Percent Auto 0.5 % (0-2); Eosinophils Absolute Auto 0.1 X10*3/uL (0.0-0.4); Eosinophils Percent Auto 1.3 % (0-4); Hematocrit 38.1 % (42.0-52.0); Hemoglobin 12.6 g/dl (14.0-18.0); Imm Gran Abs Auto 0.02 X10*3/uL (0.00-0.03); Imm Gran Pct Auto 0.3 % (0.0-0.4); Lymphocytes Absolute Auto 1.5 X10*3/uL (1.2-4.9); Mean Corpuscular HGB Conc 33.1 g/dl (31.0-36.0); Mean Corpuscular Hemoglobin 28.5 pg (27.0-33.0); Mean Corpuscular Volume 86.2 fL (80.0-98.0); Mean Platelet Volume 8.4 fL (9.4-12.4); Monocytes Absolute Auto 0.7 X10*3/uL (0.1-1.2); Monocytes Percent Auto 11.2 % (2-11); Neutrophils Percent Auto 62.7 % (45-73); Platelet Count 511 X10*3/uL (160-400); Red Blood Count 4.42 X10*6/uL (4.60-5.80); Red Cell Distribution Width 13.8 % (11.0-16.0); White Blood Count 6.3 X10*3/uL (4.8-10.8)
[2022-07-04 06:13] LABS: COVID-19 Test Negative (Negative); IDNOW Serial# 6674DD1D; INTERNATIONAL NORM RATIO 0.9 (0.9-1.1); Prothrombin Time 10.5 SEC (10.0-13.1)
[2022-07-04 06:16] LABS: Partial Thromboplastin Time 26.3 SEC (26.0-36.4)
[2022-07-04 06:24] LABS: Alanine Aminotransferase 380 U/L (0-40); Albumin Level 3.4 g/dL (3.5-5.0); Alkaline Phosphatase 840 U/L (39-117); Anion Gap 16 (12-20); Aspartate Amino Transferase 220 U/L (5-37); Bilirubin Total 2.1 mg/dL (0.0-1.0); Blood Urea Nitrogen 13 mg/dL (9-16); Carbon Dioxide 25 mmol/L (22-29); Chloride 99 mmol/L (96-108); Creatinine Clr Calc Pharmacy 112.5; Estimated Glomerular Filt Rate > 60; Glucose Random 86 mg/dL (60-115); Lactate Dehydrogenase 222 U/L (118-273); Sodium 135 mmol/L (135-145); Total Protein 5.9 g/dL (6.5-8.0)
--- NOTE | 2022-07-04 06:24 | ED.ABDPAIN ---
HPI - Abdominal Pain General Chief Complaint: Abdominal Pain Stated Complaint: abdominal pain Time Seen by Provider: 07/04/22 05:37 Source: patient Mode of arrival: ambulatory History of Present Illness HPI narrative: 51-year-old male with recent presumptive diagnosis of pseudomyxoma peritonitis and worsening abdominal distension which patient states has increased difficulty of breathing. Patient reports being significantly uncomfortable. Patient denies any fevers or chills. Related Data Previous Rx's Medication Instructions Recorded omeprazole 20 mg capsule,delayed 20 mg PO DAILY #90 caps 06/28/22 release ondansetron 4 mg disintegrating 4 mg PO Q6H PRN nausea and 06/28/22 tablet vomiting #14 tabs oxycodone 5 mg tablet 5 mg PO Q6H PRN Breakthrough Pain, 06/28/22 Moderate #60 tabs dexamethasone 4 mg tablet 4 mg PO BID #50 tabs 07/01/22 loperamide 2 mg capsule (Imodium 2 mg PO Q6H PRN Diarrhea #60 caps 07/01/22 A-D) ondansetron 8 mg disintegrating 8 mg PO Q8H #50 tabs 07/01/22 tablet Allergies Allergy/AdvReac Type Severity Reaction Status Date / Time Penicillins Allergy Rash Verified 07/04/22 05:36 Review of Systems Review of Systems Pertinent positives and negatives as stated in HPI PMFSH Past Medical History Source: nursing notes reviewed Medical History Perforated appendix Surgical History Hx of appendicitis Family History Family History Mother HTN (hypertension) Asthma Social History Social History Household Members: Spouse and Children Household Members Other:: 5 Housing: House Do you presently have visiting nurse or other home services: No Alcohol intake: never Patient Tobacco Use Status: Never used Tobacco Advance Directives: No Advance Directives Information Provided: Yes Current occupational status: employed Physical Exam ED Vital Signs: Vital Signs - 24 hr 07/04/22 05:37 07/04/22 06:00 Temperature 97.6 F 98.0 F Pulse Rate 69 75 Respiratory Rate 16 16 Blood Pressure 107/58 L 96/48 L Pulse Oximetry 98 Oxygen Delivery Method Room Air BMI result Body Mass Index 25.0 VITAL SIGNS: Reviewed. GENERAL: Well developed, well nourished, in no acute distress. HEAD: Normocephalic/atraumatic EYES: PERRLA, EOMI EARS: Ext canals without abnormality OROPHARYNX: no oral lesions noted, posterior pharynx clear NECK: Supple, no adenopathy LUNGS: Normal breath sounds. No adventitious sounds or accessory muscle use. SpO2<98> CARDIOVASCULAR: Regular rate and rhythm without noted murmurs ABDOMEN: Soft, non-tender, taut, distended with hypoactive bowel sounds. MUSCULOSKELETAL: No tenderness, deformities, or effusions noted on gross inspection. EXTREMITIES: No cyanosis, clubbing or edema. SKIN: Inspection of the skin reveals no rashes NEUROLOGIC: Alert and oriented x 3. Strength and sensation to light touch were grossly intact x 4. Medical Decision Making Medical Decision Making MDM Narrative: 51-year-old male with history and clinical presentation consistent with worsening ascites secondary to underlying intra-abdominal malignancy. Patient is noted be mildly hypotensive and will provide 500 cc of normal saline as well as administer 25 mcg of fentanyl. Patient's abdomen is not tender on palpation and very low clinical suspicion for SBP in etiology. Will pursue with basic labs as well as CT abdomen with contrast. 0638: I informed the inpatient hospitalist team at this patient will need to be admitted due to worsening liver function in the need for radiology guided paracentesis. 0646: Place consult for Gastroenterology, Dr. Bowden, as well as notifying her of the patient and the situation. Signed out to Dr Romero pending CT scan though patient is also pending admission. Differential Diagnosis Please see the discussion above Consult Healthcare Provider Management of the patient was discussed with: Hospitalist 0638: I discussed the case with Dr. Hale as well as contacting Dr. Schmid with the relevant information. Lab Data Please see the discussion above 07/04/22 05:52 07/04/22 05:52 Labs: Lab Results 07/04/22 07/04/22 07/04/22 Range/Units 05:52 05:52 05:52 WBC 6.3 (4.8-10.8) X10*3/uL RBC 4.42 L (4.60-5.80) X10*6/uL Hgb 12.6 L (14.0-18.0) g/dl Hct 38.1 L (42.0-52.0) % MCV 86.2 (80.0-98.0) fL MCH 28.5 (27.0-33.0) pg MCHC 33.1 (31.0-36.0) g/dl RDW 13.8 (11.0-16.0) % Plt Count 511 H (160-400) X10*3/uL MPV 8.4 L (9.4-12.4) fL Immature Gran % (Auto) 0.3 (0.0-0.4) % Neut % (Auto) 62.7 (45-73) % Lymph % (Auto) 24.0 (20-40) % Caswell % (Auto) 11.2 H (2-11) % Eos % (Auto) 1.3 (0-4) % Baso % (Auto) 0.5 (0-2) % Lymph # (Auto) 1.5 (1.2-4.9) X10*3/uL Caswell # (Auto) 0.7 (0.1-1.2) X10*3/uL Eos # (Auto) 0.1 (0.0-0.4) X10*3/uL Baso # (Auto) 0.0 (0.0-0.2) X10*3/uL Abs Immat Gran (auto) 0.02 (0.00-0.03) X10*3/uL Absolute Neuts (auto) 4.0 (2.0-8.3) x10*3/uL Absolute Nucleated RBC 0.000 (0.0-0.012) X10*3/uL Nucleated RBC % (auto) 0.0 (0.0-0.2) /100WBC PT 10.5 (10.0-13.1) SEC INR 0.9 (0.9-1.1) APTT 26.3 (26.0-36.4) SEC Sodium 135 (135-145) mmol/L Potassium 5.0 (3.3-5.1) mmol/L Chloride 99 (96-108) mmol/L Carbon Dioxide 25 (22-29) mmol/L Anion Gap 16 (12-20) BUN 13 (9-16) mg/dL Creatinine 0.76 (0.5-1.4) mg/dL Estim Creat Clear Calc 112.5 Estimated GFR > 60 Random Glucose 86 (60-115) mg/dL Calcium 9.0 (8.4-10.2) mg/dL Total Bilirubin 2.1 H (0.0-1.0) mg/dL AST 220 H (5-37) U/L ALT 380 H (0-40) U/L Alkaline Phosphatase 840 H (39-117) U/L Lactate Dehydrogenase 222 (118-273) U/L Total Protein 5.9 L (6.5-8.0) g/dL Albumin 3.4 L (3.5-5.0) g/dL COVID-19 (BEBO) (Negative) COVID-19 Clin Com 07/04/22 Range/Units 05:52 WBC (4.8-10.8) X10*3/uL RBC (4.60-5.80) X10*6/uL Hgb (14.0-18.0) g/dl Hct (42.0-52.0) % MCV (80.0-98.0) fL MCH (27.0-33.0) pg MCHC (31.0-36.0) g/dl RDW (11.0-16.0) % Plt Count (160-400) X10*3/uL MPV (9.4-12.4) fL Immature Gran % (Auto) (0.0-0.4) % Neut % (Auto) (45-73) % Lymph % (Auto) (20-40) % Caswell % (Auto) (2-11) % Eos % (Auto) (0-4) % Baso % (Auto) (0-2) % Lymph # (Auto) (1.2-4.9) X10*3/uL Caswell # (Auto) (0.1-1.2) X10*3/uL Eos # (Auto) (0.0-0.4) X10*3/uL Baso # (Auto) (0.0-0.2) X10*3/uL Abs Immat Gran (auto) (0.00-0.03) X10*3/uL Absolute Neuts (auto) (2.0-8.3) x10*3/uL Absolute Nucleated RBC (0.0-0.012) X10*3/uL Nucleated RBC % (auto) (0.0-0.2) /100WBC PT (10.0-13.1) SEC INR (0.9-1.1) APTT (26.0-36.4) SEC Sodium (135-145) mmol/L Potassium (3.3-5.1) mmol/L Chloride (96-108) mmol/L Carbon Dioxide (22-29) mmol/L Anion Gap (12-20) BUN (9-16) mg/dL Creatinine (0.5-1.4) mg/dL Estim Creat Clear Calc Estimated GFR Random Glucose (60-115) mg/dL Calcium (8.4-10.2) mg/dL Total Bilirubin (0.0-1.0) mg/dL AST (5-37) U/L ALT (0-40) U/L Alkaline Phosphatase (39-117) U/L Lactate Dehydrogenase (118-273) U/L Total Protein (6.5-8.0) g/dL Albumin (3.5-5.0) g/dL COVID-19 (BEBO) Negative (Negative) COVID-19 Clin Com See Note External Record Review External record reviewed: Inpatient record, Office record, Outpatient record and Prior outpatient labs Medications Administered Generic Name Dose Route Start Last Admin Trade Name Freq PRN Reason Stop Dose Admin Sodium Chloride 500 mls @ 500 mls/hr 07/04/22 06:30 07/04/22 06:35 Ns IV 07/04/22 07:29 500 mls/hr .Q1H ARIELLE Administration Discontinued Medications Generic Name Dose Route Start Last Admin Trade Name Freq PRN Reason Stop Dose Admin Fentanyl 25 mcg 07/04/22 06:22 07/04/22 06:35 Fentanyl Citrate/Pf 100 Mcg/2 Ml Vial IVPUSH 07/04/22 06:23 25 mcg ONCE ONE Administration Protocol Discharge Plan Discharge Clinical Impression: Ascites, Elevated LFTs Patient Disposition: Admitted As Inpatient Prescriptions: No Action oxycodone 5 mg Tablet 5 mg PO Q6H PRN (Reason: Breakthrough Pain, Moderate) Qty: 60 0RF Rx Instructions: Partial Fill upon patient request. omeprazole 20 mg Capsule,Delayed Release(Dr/Ec) 20 mg PO DAILY Qty: 90 3RF ondansetron 4 mg tablet,disintegrating 4 mg PO Q6H PRN (Reason: nausea and vomiting) Qty: 14 0RF ondansetron 8 mg Tablet,Disintegrating 8 mg PO Q8H Qty: 50 3RF dexamethasone 4 mg Tablet 4 mg PO BID Qty: 50 0RF Rx Instructions: Take 4 mg p.o. b.i.d. for 2 days, day 2 in 3 of chemo. loperamide [Imodium A-D] 2 mg Capsule 2 mg PO Q6H PRN (Reason: Diarrhea) Qty: 60 3RF
[2022-07-04] MEDS: fentaNYL citrate/PF 100 MCG/2 ML VIAL 25 MCG IVPUSH (06:35)
[2022-07-04] MEDS: 0.9 % Sodium Chloride 500 ML IV (06:35)
--- NOTE | 2022-07-04 06:37 | PC.NURSE ---
Pt medicated for pain. IVF infusing per MAR.
--- NOTE | 2022-07-04 06:44 | ECG_ITS ---
Test Reason : medications Blood Pressure : / mmHG Vent. Rate : 093 BPM Atrial Rate : 093 BPM P-R Int : 154 ms QRS Dur : 088 ms QT Int : 384 ms P-R-T Axes : 064 085 004 degrees QTc Int : 477 ms Normal sinus rhythm Normal ECG No previous ECGs available Referred By: Annika Roque Electronically Signed By:Jayden Smyth
--- NOTE | 2022-07-04 07:17 | PHA.MEDREC ---
Pharmacy Consult ? Medication Reconciliation Pharmacy has completed the medication reconciliation.
[2022-07-04 07:47] VITALS: BP 106/61; PULSE 89; RESP 16; TEMP 36.6; O2SAT 99
--- NOTE | 2022-07-04 10:11 | PM.GICN ---
History of Present Illness Data of Consult Service Date: 07/04/22 Requesting physician: Annika Roque Primary Care Provider: Unknown Physician HPI Reason for consult: worsening LFTs and worsening ascites PMFSH Past Medical History Medical History Perforated appendix Family History Family History Mother HTN (hypertension) Asthma Surgical History Surgical History Hx of appendicitis Social History Social History Household Members: Spouse and Children Household Members Other:: 5 Housing: House Do you presently have visiting nurse or other home services: No Alcohol intake: never Patient Tobacco Use Status: Never used Tobacco Smoked in Last 30 Days: No Use of substances other than those prescribed or required for medical reasons: No Advance Directives: No Advance Directives Information Provided: Yes Current occupational status: employed Meds Allergies Allergy/AdvReac Type Severity Reaction Status Date / Time Penicillins Allergy Rash Verified 07/04/22 05:36 Active Medications: Current Medications Pharmacy Consult (Consult Rx Perform Med Rec) 1 each MISCELLANE ONCE PRN PRN Reason: Consult order Physical Exam Vital Signs: Vital Signs: Last Vital Signs Temp 97.9 F 07/04/22 07:47 Pulse 89 07/04/22 07:47 Resp 16 07/04/22 07:47 BP 106/61 07/04/22 07:47 Pulse Ox 99 07/04/22 07:47 O2 Del Method Room Air 07/04/22 07:47 BMI result Body Mass Index 25.0 Results Labs 07/04/22 05:52 07/04/22 05:52 Labs: Short CBC 07/04/22 Range/Units 05:52 WBC 6.3 (4.8-10.8) X10*3/uL Hgb 12.6 L (14.0-18.0) g/dl Hct 38.1 L (42.0-52.0) % Plt Count 511 H (160-400) X10*3/uL BMP 07/04/22 05:52 Sodium 135 Potassium 5.0 Chloride 99 Carbon Dioxide 25 BUN 13 Creatinine 0.76 Calcium 9.0 Liver Function 07/04/22 Range/Units 05:52 Total Bilirubin 2.1 H (0.0-1.0) mg/dL AST 220 H (5-37) U/L ALT 380 H (0-40) U/L Alkaline Phosphatase 840 H (39-117) U/L Albumin 3.4 L (3.5-5.0) g/dL Assessment and Plan Time Spent With Patient Time: Total time managing care of this patient today ____ minutes.
[2022-07-04 10:17] VITALS: BP 110/69; PULSE 82; RESP 18; TEMP 37; O2SAT 99
--- NOTE | 2022-07-04 11:20 | PC.NURSE ---
pt choosing to leave AMA, rather than be admitted. Abdomen firm, non-tender, distended.
--- NOTE | 2022-07-05 07:38 | PM.EVENT ---
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 Time Spent With Patient Time: Total time managing care of this patient today ____ minutes.
== END 2022-07-04 11:26 | disposition left against medical advice (07) ==
PROVIDERS: Emergency Provider Student in an Organized Health Care Education/Training Program
DX: R10.9 Unspecified abdominal pain (principal); R18.8 Other ascites; R79.89 Other specified abnormal findings of blood chemistry; R94.31 Abnormal electrocardiogram [ECG] [EKG]; I95.9 Hypotension, unspecified; Z20.822 Contact with and (suspected) exposure to COVID-19; Z20.828 Contact with and (suspected) exposure to other viral communicable diseases; Z79.899 Other long term (current) drug therapy
CPT/HCPCS: 49083; 80053; 83615; 85025; 85610; 85730; 87635; 93005; 96361; 96374; 99285; J3010

== ENCOUNTER 2022-07-05 09:47 | Day surgery (SDC) | payer MEDICAID, SELFPAY ==
--- NOTE | ~2022-07-05 | US_ITS ---
EXAMINATION: US ABDOMEN LIMITED and ultrasound guided paracentesis CLINICAL INFORMATION: Pseudomyxoma peritonei. Ascites. COMPARISON: Previous MR of the abdomen 06/25/2022, previous ultrasound-guided paracentesis 06/25/[address] of the abdomen and pelvis 06/16/2022 TECHNIQUE: Complete abdominal ultrasound was performed. Subsequently, the patient returned for ultrasound-guided paracentesis. Procedure and risks and benefits including bleeding, infection and low blood pressure were discussed with the patient and informed consent was obtained. Using ultrasound guidance and a 5 Malay rapid centesis catheter, access to the ascitic fluid was obtained. 4.2 L of dark cloudy yellow fluid was removed. No diagnostic specimen was sent. FINDINGS: There is a moderate to large amount of ascites. The pancreas is not well visualized. Liver echotexture is normal. No focal liver lesion. Normal gallbladder. Normal caliber intrahepatic extrahepatic bile ducts. The common bile duct measures 0.7 cm. Pancreas is not well seen. The right kidney is smaller than the left. The right kidney measures 9.3 and the left 12.5 cm in length. There is mild right calyceal dilatation. No definite hydronephrosis. No renal stone or mass. Normal-size spleen. There are multiple cystic in the left upper quadrant areas around the spleen. The visualized IVC and aorta are unremarkable. US/US abdomen complete IMPRESSION: Moderate to large amount of ascites. Multiple cystic areas adjacent to the spleen in the left upper quadrant again suggestive of pseudomyxoma peritonei. Pancreas not seen. Ultrasound-guided paracentesis performed.
--- NOTE | ~2022-07-05 | US_ITS ---
EXAMINATION: US ABDOMEN LIMITED and ultrasound guided paracentesis CLINICAL INFORMATION: Pseudomyxoma peritonei. Ascites. COMPARISON: Previous MR of the abdomen 06/25/2022, previous ultrasound-guided paracentesis 06/25/[address] of the abdomen and pelvis 06/16/2022 TECHNIQUE: Complete abdominal ultrasound was performed. Subsequently, the patient returned for ultrasound-guided paracentesis. Procedure and risks and benefits including bleeding, infection and low blood pressure were discussed with the patient and informed consent was obtained. Using ultrasound guidance and a 5 Romansh rapid centesis catheter, access to the ascitic fluid was obtained. 4.2 L of dark cloudy yellow fluid was removed. No diagnostic specimen was sent. FINDINGS: There is a moderate to large amount of ascites. The pancreas is not well visualized. Liver echotexture is normal. No focal liver lesion. Normal gallbladder. Normal caliber intrahepatic extrahepatic bile ducts. The common bile duct measures 0.7 cm. Pancreas is not well seen. The right kidney is smaller than the left. The right kidney measures 9.3 and the left 12.5 cm in length. There is mild right calyceal dilatation. No definite hydronephrosis. No renal stone or mass. Normal-size spleen. There are multiple cystic in the left upper quadrant areas around the spleen. The visualized IVC and aorta are unremarkable. US/US paracentesis abd w/image IMPRESSION: Moderate to large amount of ascites. Multiple cystic areas adjacent to the spleen in the left upper quadrant again suggestive of pseudomyxoma peritonei. Pancreas not seen. Ultrasound-guided paracentesis performed.
[2022-07-05 13:08] VITALS: BMI 25.0
[2022-07-05] MEDS: Lidocaine HCl 1 % MPF 5 ML VIAL SUBCUT (14:52)
[2022-07-05 14:55] VITALS: BP 119/70; PULSE 81; RESP 17; TEMP 37.4; O2SAT 97
[2022-07-05 15:10] VITALS: BP 113/67; PULSE 75; RESP 17; O2SAT 97
[2022-07-05 15:25] VITALS: BP 116/71; PULSE 80; RESP 16; O2SAT 98
[2022-07-05 15:40] VITALS: BP 108/68; PULSE 83; RESP 17; O2SAT 97
[2022-07-05 15:55] VITALS: BP 111/69; PULSE 81; RESP 18; TEMP 37.2; O2SAT 97
== END 2022-07-05 15:58 | disposition home or self-care (01) ==
LOC: HO.US 10:08 → HO.SSS 10:36 → HO.US 12:59
PROVIDERS: Radiology Diagnostic Radiology; Visit Provider Internal Medicine Medical Oncology
DX: R18.8 Other ascites (principal); C78.6 Secondary malignant neoplasm of retroperitoneum and peritoneum
CPT/HCPCS: 49083; 76700

== ENCOUNTER 2022-07-06 08:15 | Day surgery (SDC) | payer MEDICAID, SELFPAY ==
--- NOTE | ~2022-07-06 | IR_ITS ---
PROCEDURE: IR INSERTION OF TUNNEL CATHETER CLINICAL INFORMATION: Pseudomyxoma peritonei. Port-A-Cath placement for chemotherapy. COMPARISON: None available. TECHNIQUE: Procedure and risks and benefits including bleeding, infection and pneumothorax were discussed with the patient and informed consent was obtained. All elements of maximal sterile barrier technique followed including use of cap, mask, sterile gown, sterile gloves, a sterile full body drape and hand hygiene. Also followed skin preparation with 2% chlorhexidine for cutaneous antisepsis, and sterile ultrasound preparation with sterile gel and probe cover when applicable. The right neck and chest were prepped and draped in the usual sterile fashion. The skin and soft tissues were anesthetized with 1% lidocaine plain. A small incision in the lower neck was made. Using ultrasound guidance and a 5 New Zealander micropuncture system, right internal jugular vein access was obtained. Over a 0.018 wire, a 5 New Zealander dilator was positioned in the SVC. The skin and soft tissues of the right upper anterior chest were anesthetized with 1% lidocaine plain. A small incision was made. Using blunt dissection, a subcutaneous pocket was created. A subcutaneous tunnel from the chest to the neck incision was anesthetized with 1% lidocaine plain. Using a tunneler, a 6.6 New Zealander single-lumen catheter was tunneled from the chest to the neck incision. The catheter was attached to the port. The port and catheter were flushed. The port was secured in the subcutaneous pocket using two 2-0 nonabsorbable sutures. A 0.035 guidewire was advanced through the 5 New Zealander dilator into the IVC. 5 New Zealander dilator was exchanged for a peel-away sheath. Using bent wire technique, catheter length was estimated and the catheter was cut. Catheter length is 22 cm. The catheter was fed through the peel-away sheath. The neck incision was closed using a 4-0 absorbable subcuticular suture. The chest incision was closed using four 3-0 interrupted absorbable sutures followed by a running 4-0 absorbable subcuticular suture. The port was accessed using a Tony needle. The port had good blood return, flushed easily and was instilled with heparin 5 mL 100 unit per mL solution. The port was left accessed for chemotherapy. Conscious sedation was provided by a registered nurse under my direct supervision. [id number] contact time for total sedation was 40 minutes. Patient received Versed 1 mg and fentanyl 50 mcg intravenously during the procedure. Real-time ultrasound guidance was used to document vein patency and for needle entry. A formal ultrasound picture was recorded. SAVED ULTRASOUND IMAGE: 1 SAVED FLUOROSCOPIC IMAGE: 1 FLUOROSCOPY TIME: 0.6 minutes DAP: 51 cGy-cm2 FINDINGS: There is a right internal jugular 6.6 New Zealander Dignity single-lumen Port-A-Cath with tip in the cavoatrial junction. IR/IR cvc insert tunnel w prt/network administrator IMPRESSION: Right internal jugular 6.6 New Zealander single-lumen Dignity Port-A-Cath placement.
--- NOTE | ~2022-07-06 | IR_ITS ---
PROCEDURE: IR INSERTION OF TUNNEL CATHETER CLINICAL INFORMATION: Pseudomyxoma peritonei. Port-A-Cath placement for chemotherapy. COMPARISON: None available. TECHNIQUE: Procedure and risks and benefits including bleeding, infection and pneumothorax were discussed with the patient and informed consent was obtained. All elements of maximal sterile barrier technique followed including use of cap, mask, sterile gown, sterile gloves, a sterile full body drape and hand hygiene. Also followed skin preparation with 2% chlorhexidine for cutaneous antisepsis, and sterile ultrasound preparation with sterile gel and probe cover when applicable. The right neck and chest were prepped and draped in the usual sterile fashion. The skin and soft tissues were anesthetized with 1% lidocaine plain. A small incision in the lower neck was made. Using ultrasound guidance and a 5 Egyptian micropuncture system, right internal jugular vein access was obtained. Over a 0.018 wire, a 5 Egyptian dilator was positioned in the SVC. The skin and soft tissues of the right upper anterior chest were anesthetized with 1% lidocaine plain. A small incision was made. Using blunt dissection, a subcutaneous pocket was created. A subcutaneous tunnel from the chest to the neck incision was anesthetized with 1% lidocaine plain. Using a tunneler, a 6.6 Egyptian single-lumen catheter was tunneled from the chest to the neck incision. The catheter was attached to the port. The port and catheter were flushed. The port was secured in the subcutaneous pocket using two 2-0 nonabsorbable sutures. A 0.035 guidewire was advanced through the 5 Egyptian dilator into the IVC. 5 Egyptian dilator was exchanged for a peel-away sheath. Using bent wire technique, catheter length was estimated and the catheter was cut. Catheter length is 22 cm. The catheter was fed through the peel-away sheath. The neck incision was closed using a 4-0 absorbable subcuticular suture. The chest incision was closed using four 3-0 interrupted absorbable sutures followed by a running 4-0 absorbable subcuticular suture. The port was accessed using a Tony needle. The port had good blood return, flushed easily and was instilled with heparin 5 mL 100 unit per mL solution. The port was left accessed for chemotherapy. Conscious sedation was provided by a registered nurse under my direct supervision. [id number]-it-[id number] contact time for total sedation was 40 minutes. Patient received Versed 1 mg and fentanyl 50 mcg intravenously during the procedure. Real-time ultrasound guidance was used to document vein patency and for needle entry. A formal ultrasound picture was recorded. SAVED ULTRASOUND IMAGE: 1 SAVED FLUOROSCOPIC IMAGE: 1 FLUOROSCOPY TIME: 0.6 minutes DAP: 51 cGy-cm2 FINDINGS: There is a right internal jugular 6.6 Egyptian Dignity single-lumen Port-A-Cath with tip in the cavoatrial junction. IR/IR us guide venous access IMPRESSION: Right internal jugular 6.6 Egyptian single-lumen Dignity Port-A-Cath placement.
[2022-07-06 08:59] VITALS: BMI 25.0
--- NOTE | 2022-07-06 11:27 | HO.RADPN ---
RADIOLOGY Narrative Narrative: RIJ single llumen 6.6 fr Dignity portacath placed, Tip at cavoatrial junction.
[2022-07-06 11:45] VITALS: BP 104/60; PULSE 80; RESP 18; TEMP 36.9; O2SAT 98
[2022-07-06 12:00] VITALS: BP 102/55; PULSE 74; RESP 12; O2SAT 97
[2022-07-06] MEDS: Fosaprepitant Dimeglumine 150 MG in 0.9 % Sodium Chloride 145 ML 300 MG IV (12:12)
[2022-07-06 12:15] VITALS: BP 138/74; PULSE 77; RESP 15; O2SAT 98
[2022-07-06 12:30] VITALS: BP 138/82; PULSE 73; RESP 16; O2SAT 98
[2022-07-06 12:45] VITALS: BP 138/79; PULSE 75; RESP 16; TEMP 36.9; O2SAT 99
== END 2022-07-06 13:14 | disposition home or self-care (01) ==
PROVIDERS: Visit Provider Radiology Diagnostic Radiology
DX: Z45.2 Encounter for adjustment and management of vascular access device (principal); C78.6 Secondary malignant neoplasm of retroperitoneum and peritoneum; Z88.0 Allergy status to penicillin
CPT/HCPCS: 36561; 76937; 99152; 99153; C1769; C1788; J1642; J2250; J3010

== ENCOUNTER 2022-07-12 23:24 | Emergency (ER) | payer MEDICAID, SELFPAY ==
[2022-07-12 23:35] VITALS: BP 100/62; BP 113/73; PULSE 74; PULSE 78; RESP 22; TEMP 37.1; O2SAT 98; O2SAT 99; BMI 23.7
--- NOTE | 2022-07-12 23:42 | ECG_ITS ---
Test Reason : ABD PAIN Blood Pressure : / mmHG Vent. Rate : 067 BPM Atrial Rate : 067 BPM P-R Int : 176 ms QRS Dur : 086 ms QT Int : 396 ms P-R-T Axes : 053 080 037 degrees QTc Int : 418 ms Normal sinus rhythm Normal ECG When compared with ECG of 04-JUL-2022 07:24, Nonspecific T wave abnormality has replaced inverted T waves in Inferior leads QT has shortened Referred By: Ronny Velez Electronically Signed By:PAULO MISHRA
--- NOTE | 2022-07-12 23:53 | ED.GENADULT ---
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 He was seen here a few times dental margin most recently admitted and discharged on 06/27/2022 and was seen in the ER on 07/04/2022 but left against medical advice for abdominal pain and ascites. He has recently been seeing Dr. Martinez for his were relatively new pseudomyxoma peritonei diagnosis. He reports that he is due to receive chemotherapy His last paracentesis was 1 week ago from today He complains of 10/10 abdominal pain that started a few hours ago Denies any fevers, chills, nausea vomiting or diarrhea Related Data Home Medications Medication Instructions Recorded Confirmed cinnamon bark 500 mg capsule mg PO 07/06/22 07/06/22 (Cinnamon) tumeric 100 mg-jonh 150 mg-olive cap PO 07/06/22 50 mg-oreg 150 mg-caprylate capsule Previous Rx's Medication Instructions Recorded omeprazole 20 mg capsule,delayed 20 mg PO DAILY #90 caps 06/28/22 release ondansetron 4 mg disintegrating 4 mg PO Q6H PRN nausea and 06/28/22 tablet vomiting #14 tabs oxycodone 5 mg tablet 5 mg PO Q6H PRN Breakthrough Pain, 06/28/22 Moderate #60 tabs loperamide 2 mg capsule (Imodium 2 mg PO Q6H PRN Diarrhea #60 caps 07/01/22 A-D) food supplemt, lactose-reduced 1 ea PO TID 30 days #7,110 mL 07/06/22 (Ensure oral liquid) dexamethasone 4 mg tablet 4 mg PO BID #50 tabs 07/07/22 morphine 15 mg immediate release 15 mg PO TID PRN severe pain 07/13/22 tablet (scale score 7-10) #15 tabs Allergies Allergy/AdvReac Type Severity Reaction Status Date / Time Penicillins Allergy Rash Verified 07/06/22 13:24 Review of Systems Constitutional: Constitutional: Reports as per HPI, Denies chills, Denies fatigue, Denies fever(s) and Denies headache(s) ENT: Denies headache(s) Cardiovascular: Cardiovascular: Denies chest pain and Denies dyspnea Respiratory: Respiratory: Denies cough and Denies dyspnea Gastrointestinal: Gastrointestinal: Reports abdominal pain, Denies constipation and Denies vomiting Genitourinary: Genitourinary: Denies difficulty urinating and Denies dysuria Neurologic: Denies headache(s) and Denies focal weakness Endocrine: Endocrine: Denies fatigue PMFSH Past Medical History Medical History Perforated appendix Surgical History Hx of appendicitis Family History Family History Mother HTN (hypertension) Asthma Social History Social History Household Members: Spouse and Children Household Members Other:: 5 Housing: House Do you presently have visiting nurse or other home services: No Alcohol intake: never Patient Tobacco Use Status: Never used Tobacco Smoked in Last 30 Days: No Use of substances other than those prescribed or required for medical reasons: No Advance Directives: No Advance Directives Information Provided: Yes Current occupational status: employed Physical Exam ED Vital Signs: Vital Signs - 24 hr 07/12/22 23:35 07/13/22 00:06 Temperature 98.8 F Pulse Rate 74 Respiratory Rate 22 H 24 H Blood Pressure 113/73 Pulse Oximetry 99 Oxygen Delivery Method Room Air BMI result Body Mass Index 23.7 Const General: healthy appearing, comfortable, no acute distress, alert and awake Nutritional Appearance: well nourished Orientation/consciousness: patient oriented x3 HENMT Head: Yes normocephalic and Yes atraumatic Throat: Yes posterior oropharynx normal Eyes Eyelids: Yes eyelids normal Conjunctivae: conjunctivae normal Sclerae: sclerae normal Corneas: corneas normal Pupils: Equal, round and reactive pupils present EOM: EOMs intact bilaterally Neck Neck: Yes full ROM Resp Effort & Inspection: normal respiratory effort, able to speak in complete sentences, no audible wheezes and not labored Auscultation: clear to auscultation bilaterally Cardio Rate: regular rate Rhythm: regular rhythm GI Inspection: Yes distended (Mildly distended, soft abdomen) Palpation (GI): Soft to palpation, not firm, Tenderness to palpation present (GI) (Generalized abdominal tenderness), Guarding due to palpation present (GI) in the LUQ and in the RUQ and not rigid Auscultation: normoactive bowel sounds Skin General skin exam: no rashes or lesions noted and elasticity normal Neuro General: patient oriented x3 Cranial nerves: Yes CN's II-XII intact bilaterally, Yes Equal, round and reactive pupils present and Yes Bilaterally intact EOM present Cognition (Neuro): normal cognition Extrem Other: Moving all extremities well without any obvious deformities Course Reevaluation(s) Reevaluation #1: Patient's pain completely resolved with 1 dose of morphine. He reports that the oxycodone at home does not help as much as morphine dose. His labs are without significant interval change from previous. He reports that he actually has an appointment later today with his outpatient providers. He has had no nausea, no vomiting, no diarrhea, no fevers. Doubt infectious process. There is no leukocytosis. I do not see any indication for emergent imaging. The patient's abdomen is slightly distended but there is no obvious significant amount of ascites. By the patient's report his abdomen is usually much more distended when he requires paracentesis and he does not feel that he needs 1. He is requesting discharge at this time and I feel that this is appropriate Time: 00:53 Medications Administered Discontinued Medications Generic Name Dose Route Start Last Admin Trade Name Freq PRN Reason Stop Dose Admin Sodium Chloride 1,000 mls @ 999 mls/hr 07/12/22 23:45 07/13/22 00:06 Ns IV 07/13/22 00:45 999 mls/hr .Q1H1M ARIELLE Administration Morphine Sulfate 4 mg 07/12/22 23:42 07/13/22 00:06 Morphine Sulfate 4 Mg/Ml Cartridge IVPUSH 07/12/22 23:43 4 mg ONCE ONE Administration Protocol Ondansetron HCl 4 mg 07/12/22 23:42 07/13/22 00:05 Ondansetron Hcl 4 Mg/2 Ml Vial IVPUSH 07/12/22 23:43 4 mg ONCE ONE Administration Medical Decision Making Medical Decision Making MDM Narrative: 51-year-old male presents for evaluation abdominal pain, likely worsening ascites. Vital signs are stable on arrival. Labs pending this time. Patient medicated with morphine, Zofran, IV fluids. Consider imaging as indicated. The we do have a working diagnosis for the patient's pain and ascites. Differential Diagnosis Ascites Pseudomyxoma peritonei SBP less likely Chronic abdominal pain Lab Data 07/13/22 00:17 07/13/22 00:17 Labs: Lab Results 07/13/22 07/13/22 07/13/22 Range/Units 00:13 00:17 00:17 WBC 6.8 (4.8-10.8) X10*3/uL RBC 4.16 L (4.60-5.80) X10*6/uL Hgb 11.8 L (14.0-18.0) g/dl Hct 36.0 L (42.0-52.0) % MCV 86.5 (80.0-98.0) fL MCH 28.4 (27.0-33.0) pg MCHC 32.8 (31.0-36.0) g/dl RDW 13.8 (11.0-16.0) % Plt Count 399 (160-400) X10*3/uL MPV 8.7 L (9.4-12.4) fL Immature Gran % (Auto) 0.3 (0.0-0.4) % Neut % (Auto) 75.2 H (45-73) % Lymph % (Auto) 17.6 L (20-40) % [place] % (Auto) 5.2 (2-11) % Eos % (Auto) 1.3 (0-4) % Baso % (Auto) 0.4 (0-2) % Lymph # (Auto) 1.2 (1.2-4.9) X10*3/uL [place] # (Auto) 0.4 (0.1-1.2) X10*3/uL Eos # (Auto) 0.1 (0.0-0.4) X10*3/uL Baso # (Auto) 0.0 (0.0-0.2) X10*3/uL Abs Immat Gran (auto) 0.02 (0.00-0.03) X10*3/uL Absolute Neuts (auto) 5.1 (2.0-8.3) x10*3/uL Absolute Nucleated RBC 0.000 (0.0-0.012) X10*3/uL Nucleated RBC % (auto) 0.0 (0.0-0.2) /100WBC PT 10.9 (10.0-13.1) SEC INR 1.0 (0.9-1.1) APTT 25.2 L (26.0-36.4) SEC Sodium (135-145) mmol/L Potassium (3.3-5.1) mmol/L Chloride (96-108) mmol/L Carbon Dioxide (22-29) mmol/L Anion Gap (12-20) BUN (9-16) mg/dL Creatinine (0.5-1.4) mg/dL Estim Creat Clear Calc Estimated GFR Random Glucose (60-115) mg/dL Lactic Acid (0.5-2.0) mmol/L Calcium (8.4-10.2) mg/dL Magnesium (1.6-2.6) mg/dL Total Bilirubin (0.0-1.0) mg/dL AST (5-37) U/L ALT (0-40) U/L Alkaline Phosphatase (39-117) U/L Ammonia (13-55) umol/L Total Protein (6.5-8.0) g/dL Albumin (3.5-5.0) g/dL Lipase (8-78) U/L COVID-19 (BEBO) Negative (Negative) COVID-19 Clin Com See Note Blood Type Antibody Screen 07/13/22 07/13/22 07/13/22 Range/Units 00:17 00:17 00:17 WBC (4.8-10.8) X10*3/uL RBC (4.60-5.80) X10*6/uL Hgb (14.0-18.0) g/dl Hct (42.0-52.0) % MCV (80.0-98.0) fL MCH (27.0-33.0) pg MCHC (31.0-36.0) g/dl RDW (11.0-16.0) % Plt Count (160-400) X10*3/uL MPV (9.4-12.4) fL Immature Gran % (Auto) (0.0-0.4) % Neut % (Auto) (45-73) % Lymph % (Auto) (20-40) % [place] % (Auto) (2-11) % Eos % (Auto) (0-4) % Baso % (Auto) (0-2) % Lymph # (Auto) (1.2-4.9) X10*3/uL [place] # (Auto) (0.1-1.2) X10*3/uL Eos # (Auto) (0.0-0.4) X10*3/uL Baso # (Auto) (0.0-0.2) X10*3/uL Abs Immat Gran (auto) (0.00-0.03) X10*3/uL Absolute Neuts (auto) (2.0-8.3) x10*3/uL Absolute Nucleated RBC (0.0-0.012) X10*3/uL Nucleated RBC % (auto) (0.0-0.2) /100WBC PT (10.0-13.1) SEC INR (0.9-1.1) APTT (26.0-36.4) SEC Sodium 136 (135-145) mmol/L Potassium 4.4 (3.3-5.1) mmol/L Chloride 106 (96-108) mmol/L Carbon Dioxide 25 (22-29) mmol/L Anion Gap 9 L (12-20) BUN 12 (9-16) mg/dL Creatinine 0.65 (0.5-1.4) mg/dL Estim Creat Clear Calc 131.5 Estimated GFR > 60 Random Glucose 104 (60-115) mg/dL Lactic Acid 0.6 (0.5-2.0) mmol/L Calcium 8.2 L D (8.4-10.2) mg/dL Magnesium 2.0 (1.6-2.6) mg/dL Total Bilirubin 0.5 (0.0-1.0) mg/dL AST 42 H (5-37) U/L ALT 102 H (0-40) U/L Alkaline Phosphatase 522 H (39-117) U/L Ammonia 39 (13-55) umol/L Total Protein 5.0 L (6.5-8.0) g/dL Albumin 3.0 L (3.5-5.0) g/dL Lipase 29 (8-78) U/L COVID-19 (BEBO) (Negative) COVID-19 Clin [facility] Blood Type Antibody Screen 07/13/22 Range/Units 01:05 WBC (4.8-10.8) X10*3/uL RBC (4.60-5.80) X10*6/uL Hgb (14.0-18.0) g/dl Hct (42.0-52.0) % MCV (80.0-98.0) fL MCH (27.0-33.0) pg MCHC (31.0-36.0) g/dl RDW (11.0-16.0) % Plt Count (160-400) X10*3/uL MPV (9.4-12.4) fL Immature Gran % (Auto) (0.0-0.4) % Neut % (Auto) (45-73) % Lymph % (Auto) (20-40) % [place] % (Auto) (2-11) % Eos % (Auto) (0-4) % Baso % (Auto) (0-2) % Lymph # (Auto) (1.2-4.9) X10*3/uL [place] # (Auto) (0.1-1.2) X10*3/uL Eos # (Auto) (0.0-0.4) X10*3/uL Baso # (Auto) (0.0-0.2) X10*3/uL Abs Immat Gran (auto) (0.00-0.03) X10*3/uL Absolute Neuts (auto) (2.0-8.3) x10*3/uL Absolute Nucleated RBC (0.0-0.012) X10*3/uL Nucleated RBC % (auto) (0.0-0.2) /100WBC PT (10.0-13.1) SEC INR (0.9-1.1) APTT (26.0-36.4) SEC Sodium (135-145) mmol/L Potassium (3.3-5.1) mmol/L Chloride (96-108) mmol/L Carbon Dioxide (22-29) mmol/L Anion Gap (12-20) BUN (9-16) mg/dL Creatinine (0.5-1.4) mg/dL Estim Creat Clear Calc Estimated GFR Random Glucose (60-115) mg/dL Lactic Acid (0.5-2.0) mmol/L Calcium (8.4-10.2) mg/dL Magnesium (1.6-2.6) mg/dL Total Bilirubin (0.0-1.0) mg/dL AST (5-37) U/L ALT (0-40) U/L Alkaline Phosphatase (39-117) U/L Ammonia (13-55) umol/L Total Protein (6.5-8.0) g/dL Albumin (3.5-5.0) g/dL Lipase (8-78) U/L COVID-19 (BEBO) (Negative) COVID-19 Clin Com Blood Type A Positive Antibody Screen NEGATIVE Discharge Plan Discharge Clinical Impression: Abdominal pain Patient Disposition: Home, Self-Care Instructions: Abdominal Pain (ED) Additional Instructions: Your blood work in the emergency department today was unchanged from previous labs. Your abdomen is not significantly distended. Your vital signs have been stable Follow-up with your primary doctor and Dr. Romano Take the morphine for any severe or breakthrough pain Do not mix this with your oxycodone Prescriptions: New morphine 15 mg tablet 15 mg PO TID PRN (Reason: severe pain (scale score 7-10)) Qty: 15 0RF Rx Instructions: Partial Fill upon patient request. No Action Ensure Liquid 1 ea PO TID 30 Days Qty: 7110 1RF oxycodone 5 mg Tablet 5 mg PO Q6H PRN (Reason: Breakthrough Pain, Moderate) Qty: 60 0RF Rx Instructions: Partial Fill upon patient request. omeprazole 20 mg Capsule,Delayed Release(Dr/Ec) 20 mg PO DAILY Qty: 90 3RF ondansetron 4 mg tablet,disintegrating 4 mg PO Q6H PRN (Reason: nausea and vomiting) Qty: 14 0RF loperamide [Imodium A-D] 2 mg Capsule 2 mg PO Q6H PRN (Reason: Diarrhea) Qty: 60 3RF cinnamon bark [Cinnamon] 500 mg Capsule PO pmuotbb-edxf-gdqri-oreg-capryl 100 mg-150 mg- 50 mg-150 mg Capsule PO dexamethasone 4 mg Tablet 4 mg PO BID Qty: 50 0RF Rx Instructions: Take 4 mg p.o. b.i.d. for 2 days, day 2 in 3 of chemo. Interventions: ED Discharge Assessment Last Done: 07/13/22 01:09 Discharge Date/Time: 07/13/22 01:13
[2022-07-13] MEDS: ondansetron HCL 4 MG/2 ML VIAL IVPUSH (00:05)
[2022-07-13 00:06] VITALS: RESP 24
[2022-07-13] MEDS: 0.9 % Sodium Chloride 1,000 ML 999 ML IV (00:06)
[2022-07-13] MEDS: Morphine Sulfate 4 MG/ML CARTRIDGE IVPUSH (00:06)
[2022-07-13 00:23] LABS: MANUAL DIFF FLAG NO
[2022-07-13 00:25] LABS: Basophils Percent Auto 0.4 % (0-2); Eosinophils Absolute Auto 0.1 X10*3/uL (0.0-0.4); Eosinophils Percent Auto 1.3 % (0-4); Hemoglobin 11.8 g/dl (14.0-18.0); Imm Gran Abs Auto 0.02 X10*3/uL (0.00-0.03); Imm Gran Pct Auto 0.3 % (0.0-0.4); Lymphocytes Absolute Auto 1.2 X10*3/uL (1.2-4.9); Lymphocytes Percent Auto 17.6 % (20-40); Mean Corpuscular HGB Conc 32.8 g/dl (31.0-36.0); Mean Corpuscular Hemoglobin 28.4 pg (27.0-33.0); Mean Corpuscular Volume 86.5 fL (80.0-98.0); Mean Platelet Volume 8.7 fL (9.4-12.4); Monocytes Absolute Auto 0.4 X10*3/uL (0.1-1.2); Monocytes Percent Auto 5.2 % (2-11); Neutrophils Absolute Auto 5.1 x10*3/uL (2.0-8.3); Neutrophils Percent Auto 75.2 % (45-73); Platelet Count 399 X10*3/uL (160-400); Red Blood Count 4.16 X10*6/uL (4.60-5.80); Red Cell Distribution Width 13.8 % (11.0-16.0); White Blood Count 6.8 X10*3/uL (4.8-10.8)
[2022-07-13 00:32] LABS: Prothrombin Time 10.9 SEC (10.0-13.1)
[2022-07-13 00:33] LABS: Ammonia 39 umol/L (13-55)
[2022-07-13 00:35] LABS: Partial Thromboplastin Time 25.2 SEC (26.0-36.4)
[2022-07-13 00:36] LABS: Lactic Acid 0.6 mmol/L (0.5-2.0)
[2022-07-13 00:39] LABS: COVID-19 Test Negative (Negative); IDNOW Serial# BCCEAD1C
[2022-07-13 00:40] LABS: Alanine Aminotransferase 102 U/L (0-40); Alkaline Phosphatase 522 U/L (39-117); Anion Gap 9 (12-20); Aspartate Amino Transferase 42 U/L (5-37); Bilirubin Total 0.5 mg/dL (0.0-1.0); Blood Urea Nitrogen 12 mg/dL (9-16); Calcium 8.2 mg/dL (8.4-10.2); Carbon Dioxide 25 mmol/L (22-29); Chloride 106 mmol/L (96-108); Creatinine Clr Calc Pharmacy 131.5; Estimated Glomerular Filt Rate > 60; Glucose Random 104 mg/dL (60-115); Potassium 4.4 mmol/L (3.3-5.1); Sodium 136 mmol/L (135-145)
[2022-07-13 00:44] LABS: Lipase 29 U/L (8-78)
== END 2022-07-13 01:13 | disposition home or self-care (01) ==
PROVIDERS: Physician Assistant; Emergency Provider Internal Medicine; PCP Physician Assistant
DX: R10.9 Unspecified abdominal pain (principal); Z20.822 Contact with and (suspected) exposure to COVID-19; C18.1 Malignant neoplasm of appendix; C78.6 Secondary malignant neoplasm of retroperitoneum and peritoneum; Z79.899 Other long term (current) drug therapy
CPT/HCPCS: 36415; 80053; 82140; 83605; 83690; 83735; 85025; 85610; 85730; 86850; 86900; 86901; 87635; 93005; 96374; 96375; 99284; 99285; J2270; J2405

== ENCOUNTER 2022-07-13 10:17 | Emergency (ER) | payer MEDICAID, SELFPAY ==
[2022-07-13] VITALS (14 sets, daily range): BP systolic 97–121; BP diastolic 59–72; PULSE 60–108; RESP 12–18; TEMP 36.6–36.7; O2SAT 96–98; BMI 23.7
--- NOTE | ~2022-07-13 | US_ITS ---
EXAMINATION: Ultrasound-guided paracentesis in the ER. CLINICAL INDICATION: Ascites. COMPARISON: CT abdomen and pelvis 07/13/2022. TECHNIQUE: Following explaining ultrasound-guided paracentesis procedure, benefits and risk, a written consent was obtained. Patient was placed supine on ultrasound table and preliminary ultrasound imaging was obtained. An optimal site was selected along the right lower quadrant and marked. The marked site was cleaned and draped in usual sterile manner. 1% lidocaine was injected puncture site. Through a small skin incision a 5 [place] S[employer] catheter was advanced into the peritoneal space. After observing fluid return, stylet was withdrawn and catheter connected to a connecting cannula.. After obtaining all fluid and observing normal fluid return, catheter was removed and complete hemostasis achieved at puncture site. Sterile dressing applied postprocedure. Patient tolerated procedure extremely well. US/US paracentesis abd w/image FINDINGS/IMPRESSION: On preliminary ultrasound imaging there is moderate free fluid seen. Approximately 3.8 L of dark yellowish fluid was drained from the right lower quadrant in the ER.
--- NOTE | ~2022-07-13 | CT_ITS ---
EXAMINATION: CT ABDOMEN AND PELVIS WITH CONTRAST CLINICAL INFORMATION: Abdominal pain. COMPARISON: CT abdomen and pelvis 06/16/2022 and 06/11/2022.. TECHNIQUE: Multidetector volumetric images were obtained from the superior aspect of the liver through the pubic symphysis following administration 85 mL of Omnipaque 350 intravenous contrast. Sagittal and coronal reformatted images were obtained on the technologist's workstation. Oral contrast: No This CT examination was performed using dose optimization techniques as appropriate, variously including the following: *Automated exposure control *Adjustment of mA and/or kV according to patient size (this includes techniques or standardized protocols for targeted exams where dose is matched to indication/reason for exam; i.e. extremities or head) *Use of iterative reconstruction technique DLP: 519 mGy-cm FINDINGS: LUNG BASES: The lung bases are clear. The heart size is normal. LIVER, GALLBLADDER, AND BILIARY TREE: The liver is normal in size, shape, and attenuation. No focal hepatic lesion. There is mild intrahepatic ductal dilatation. There is diffuse ascites The gallbladder is unremarkable with no evidence of radiopaque gallstones, gallbladder wall thickening, or obvious pericholecystic inflammatory changes. PANCREAS: Unremarkable. SPLEEN: The spleen has scalloped margins and small defects likely old peripheral infarcts. They are unchanged to last 2 CT exams 06/16/2022 and 06/11/2022. ADRENAL GLANDS: Unremarkable. KIDNEYS AND URETERS: The kidneys are normal in size, shape, and attenuation. No hydronephrosis, hydroureter, or calculi seen. No perinephric stranding. BLADDER: Unremarkable. GASTROINTESTINAL TRACT: The small and large bowel are unremarkable. The appendix is unremarkable. ABDOMINAL WALL: There is scattered stool and gas seen throughout the colon without distention. Fluid-filled small bowel loops are noted without dilation. Appendix is not seen. The stomach is nondistended. LYMPH NODES: Normal. VASCULAR: Unremarkable. PELVIC VISCERA: The bladder is nondistended. OSSEOUS STRUCTURES: No aggressive lytic or sclerotic process seen. CT/CT abdomen pelvis w IV con IMPRESSION: 1. Diffuse ascites. Ultrasound-guided paracentesis can be performed in the ER if patient is distended 2. Mild intrahepatic ductal dilatation. 3. Mild constipation. 4. No change in the scalp margins of the spleen 4. No change from previous study 06/16/2022 and 06/11/2022. Fleischner guidelines were followed.
--- NOTE | 2022-07-13 11:39 | ED_ITS ---
HPI - Abdominal Pain General Chief Complaint: Abdominal Pain Stated Complaint: Abdominal Pain Time Seen by Provider: 07/13/22 11:20 Source: patient Mode of arrival: ambulatory Limitations: no limitations History of Present Illness HPI narrative: This is a 51 years old male presented to the emergency department with chief complaint of abdominal pain, he has history of pseudo myxoma peritonei, he had ascites a paracentesis in the past. He denies any fever chills vomiting and diarrhea MD elicited complaint: abdominal pain Pertinent past history: other (Pseudomyxoma peritonei) Onset (ago): week(s) Pain Consistency: constant Quality: aching Radiation: none Relieving factors: nothing Associated symptoms: denies other symptoms Related Data Home Medications Medication Instructions Recorded Confirmed cinnamon bark 500 mg capsule mg PO 07/06/22 07/06/22 (Cinnamon) tumeric 100 mg-jonh 150 mg-olive cap PO 07/06/22 50 mg-oreg 150 mg-caprylate capsule Previous Rx's Medication Instructions Recorded omeprazole 20 mg capsule,delayed 20 mg PO DAILY #90 caps 06/28/22 release ondansetron 4 mg disintegrating 4 mg PO Q6H PRN nausea and 06/28/22 tablet vomiting #14 tabs oxycodone 5 mg tablet 5 mg PO Q6H PRN Breakthrough Pain, 06/28/22 Moderate #60 tabs loperamide 2 mg capsule (Imodium 2 mg PO Q6H PRN Diarrhea #60 caps 07/01/22 A-D) food supplemt, lactose-reduced 1 ea PO TID 30 days #7,110 mL 07/06/22 (Ensure oral liquid) dexamethasone 4 mg tablet 4 mg PO BID #50 tabs 07/07/22 morphine 15 mg immediate release 15 mg PO TID PRN severe pain 07/13/22 tablet (scale score 7-10) #15 tabs omeprazole 10 mg capsule,delayed 10 mg PO DAILY #14 caps 07/13/22 release Allergies Allergy/AdvReac Type Severity Reaction Status Date / Time Penicillins Allergy Rash Verified 07/06/22 13:24 Review of Systems Constitutional: Reports no additional constitutional complaints Reports system reviewed and no additional complaints, except as documented Gastrointestinal: Reports abdominal pain PMFSH Past Medical History Source: unable to obtain Medical History Perforated appendix Surgical History Hx of appendicitis Family History Family History Mother HTN (hypertension) Asthma Social History Social History Household Members: Spouse and Children Household Members Other:: 5 Housing: House Do you presently have visiting nurse or other home services: No Alcohol intake: never Patient Tobacco Use Status: Never used Tobacco Smoked in Last 30 Days: No Use of substances other than those prescribed or required for medical reasons: No Advance Directives: No Advance Directives Information Provided: Yes Current occupational status: employed Physical Exam ED Vital Signs: Vital Signs - 24 hr 07/13/22 11:11 07/13/22 11:44 07/13/22 11:51 Temperature 97.8 F 98.1 F Pulse Rate 82 73 Respiratory Rate 12 16 16 Blood Pressure 109/69 121/72 Pulse Oximetry 98 98 Oxygen Delivery Method Room Air Room Air 07/13/22 12:21 07/13/22 13:51 07/13/22 15:22 Temperature Pulse Rate 90 92 Respiratory Rate 16 16 16 Blood Pressure 112/72 97/62 Pulse Oximetry 96 Oxygen Delivery Method Room Air 07/13/22 15:25 07/13/22 15:46 07/13/22 15:49 Temperature 98.0 F Pulse Rate 93 98 108 H Respiratory Rate 16 Blood Pressure 101/71 105/68 Pulse Oximetry 96 Oxygen Delivery Method Room Air 07/13/22 15:53 07/13/22 16:01 07/13/22 16:07 Temperature 98.1 F Pulse Rate 98 93 92 Respiratory Rate 18 16 Blood Pressure 115/63 101/67 103/64 Pulse Oximetry 97 Oxygen Delivery Method Room Air BMI result Body Mass Index 23.7 Const General: cooperative Nutritional Appearance: well nourished Orientation/consciousness: patient oriented x3 Limitations: no limitations HENMT Head: Yes normal to inspection General nose exam: Normal external nose present Face and sinus: Yes normal facial exam Throat: Yes posterior oropharynx normal Neck Neck: Yes normal visual inspection Chest Chest palpation & inspection: normal inspection of the chest Resp Effort & Inspection: normal respiratory effort Cardio Palpation: normal PMI Rate: regular rate Rhythm: regular rhythm GI Inspection: Yes normal to inspection Palpation (GI): Soft to palpation, not firm, nontender and no guarding Percussion: Yes normal to percussion Skin General skin exam: no rashes or lesions noted and elasticity normal Lesions: no lesions Rashes: no rashes Neuro General: patient oriented x3 Extrem General: Yes normal to inspection, Yes full ROM and Yes capillary refill normal Course Reevaluation(s) Reevaluation #1: pARACENTESIS DONE BY IR Time: 16:01 Reevaluation #2: PARACENTESIS COMPLETED 3.8 LITERS FLUIDS ASPIRATED Time: 16:10 Medical Decision Making Medical Decision Making [facility] Narrative: PATIENT PRESENTED WITH ABDOMINAL PAIN WAS SEEN READY YESTERDAY, CT SCAN WAS DONE SHOWED ASCITES. PARACENTESIS WAS DONE BY IR Differential Diagnosis Differential Diagnoses: The differential diagnosis associated with the prese ntation includes SBO/ASCITES Admission/Observation Consideration of admission/observation: Escalation of care including admissi on/observation considered Consult Healthcare Provider Management of the patient was discussed with: Cordwood Cutter DR URIARTE AND ID DOCTOR Lab Data [facility] Lab Attestation statement: I reviewed the patient's lab results. 07/13/22 12:01 07/13/22 12:01 Labs: Lab Results 07/13/22 07/13/22 07/13/22 Range/Units 12:01 12:01 12:01 WBC 6.7 (4.8-10.8) X10*3/uL RBC 4.40 L (4.60-5.80) X10*6/uL Hgb 12.6 L (14.0-18.0) g/dl Hct 38.6 L (42.0-52.0) % MCV 87.7 (80.0-98.0) fL MCH 28.6 (27.0-33.0) pg MCHC 32.6 (31.0-36.0) g/dl RDW 13.9 (11.0-16.0) % Plt Count 414 H (160-400) X10*3/uL MPV 8.4 L (9.4-12.4) fL Immature Gran % (Auto) 0.3 (0.0-0.4) % Neut % (Auto) 77.9 H (45-73) % Lymph % (Auto) 15.0 L (20-40) % [place] % (Auto) 6.0 (2-11) % Eos % (Auto) 0.4 (0-4) % Baso % (Auto) 0.4 (0-2) % Lymph # (Auto) 1.0 L (1.2-4.9) X10*3/uL [place] # (Auto) 0.4 (0.1-1.2) X10*3/uL Eos # (Auto) 0.0 (0.0-0.4) X10*3/uL Baso # (Auto) 0.0 (0.0-0.2) X10*3/uL Abs Immat Gran (auto) 0.02 (0.00-0.03) X10*3/uL Absolute Neuts (auto) 5.2 (2.0-8.3) x10*3/uL Absolute Nucleated RBC 0.000 (0.0-0.012) X10*3/uL Nucleated RBC % (auto) 0.0 (0.0-0.2) /100WBC PT 11.2 (10.0-13.1) SEC INR 1.0 (0.9-1.1) APTT 25.1 L (26.0-36.4) SEC Sodium 137 (135-145) mmol/L Potassium 4.5 (3.3-5.1) mmol/L Chloride 104 (96-108) mmol/L Carbon Dioxide 26 (22-29) mmol/L Anion Gap 12 (12-20) BUN 13 (9-16) mg/dL Creatinine 0.62 (0.5-1.4) mg/dL Estim Creat Clear Calc 137.9 Estimated GFR > 60 Random Glucose 105 (60-115) mg/dL Calcium 8.6 (8.4-10.2) mg/dL Total Bilirubin 0.7 (0.0-1.0) mg/dL AST 32 (5-37) U/L ALT 91 H (0-40) U/L Alkaline Phosphatase 502 H (39-117) U/L Total Protein 5.3 L (6.5-8.0) g/dL Albumin 3.2 L (3.5-5.0) g/dL Lipase 21 (8-78) U/L Independent Interpretation I performed an independent interpretation of an: CT Scan Radiology Impression Discussion of test interpretation with radiology: I have reviewed the radiologist's reading. Radiologist Impression: d gas seen throughout the colon without distention. Fluid-filled small bowel loops are noted without dilation. Appendix is not seen. The stomach is nondistended.? LYMPH NODES: Normal. VASCULAR: Unremarkable. PELVIC VISCERA: The bladder is nondistended.? OSSEOUS STRUCTURES: No aggressive lytic or sclerotic process seen.? CT/CT abdomen pelvis w IV con IMPRESSION: 1.? Diffuse ascites. Ultrasound-guided paracentesis can be performed in the ER if patient is distended 2.? Mild intrahepatic ductal dilatation. 3.? Mild constipation. 4.? No change in the scalp margins of the spleen 4.? No change from previous study 06/16/2022 and 06/11/2022. ? Fleischner guidelines were followed. Dictated By: Ronaldo Nick MD External Record Review External record reviewed: Inpatient record and Other Medications Administered Discontinued Medications Generic Name Dose Route Start Last Admin Trade Name Freq PRN Reason Stop Dose Admin Hydromorphone HCl 0.5 mg 07/13/22 12:02 07/13/22 12:21 Hydromorphone Hcl 0.5 Mg/0.5 Ml Syringe IVPUSH 07/13/22 12:03 0.5 mg ONCE ONE Administration Protocol Iohexol 100 ml 07/13/22 13:10 07/13/22 13:11 Iohexol 350 Mg/Ml 100 Ml Infus..Btl IV 07/13/22 13:11 85 ml ONCE ONE Administration Lidocaine HCl 10 ml 07/13/22 15:38 07/13/22 15:43 Lidocaine Hcl 1 % Mpf 5 Ml Vial SUBCUT 07/13/22 15:39 5 ml ONCE ONE Administration Discharge Plan Discharge Clinical Impression: Abdominal pain, Ascites Patient Disposition: Still a Patient Instructions: Ascites (ED), Abdominal Pain (ED) Additional Instructions: FOLLOW-UP WITH YOUR PRIMARY CARE PHYSICIAN TOMORROW RETURN IF YOU WORSE, FEVER, VOMITING Prescriptions: New omeprazole 10 mg capsule,delayed release(DR/EC) 10 mg PO DAILY Qty: 14 0RF No Action Ensure Liquid 1 ea PO TID 30 Days Qty: 7110 1RF oxycodone 5 mg Tablet 5 mg PO Q6H PRN (Reason: Breakthrough Pain, Moderate) Qty: 60 0RF Rx Instructions: Partial Fill upon patient request. omeprazole 20 mg Capsule,Delayed Release(Dr/Ec) 20 mg PO DAILY Qty: 90 3RF ondansetron 4 mg tablet,disintegrating 4 mg PO Q6H PRN (Reason: nausea and vomiting) Qty: 14 0RF loperamide [Imodium A-D] 2 mg Capsule 2 mg PO Q6H PRN (Reason: Diarrhea) Qty: 60 3RF cinnamon bark [Cinnamon] 500 mg Capsule PO hbleheg-oyjf-avrob-oreg-capryl 100 mg-150 mg- 50 mg-150 mg Capsule PO dexamethasone 4 mg Tablet 4 mg PO BID Qty: 50 0RF Rx Instructions: Take 4 mg p.o. b.i.d. for 2 days, day 2 in 3 of chemo. morphine 15 mg tablet 15 mg PO TID PRN (Reason: severe pain (scale score 7-10)) Qty: 15 0RF Rx Instructions: Partial Fill upon patient request. Referrals: Physician,Unknown J [Primary Care Provider] - 2 days
[2022-07-13 12:06] LABS: MANUAL DIFF FLAG NO
--- NOTE | 2022-07-13 12:06 | PC.NURSE ---
Pt found on stretcher, airway open and patent, no obvious signs of distress, no difficulty breathing.Pt a&ox4. Skin pale, warm, and dry. Abdomen appears to have some ascites. Pt hx of cancer. Pt reports abdominal pain since yesterday rated 01/04. Doc came in and did an ultrasound, which revealed fluid in abdomen.
[2022-07-13 12:08] LABS: Basophils Percent Auto 0.4 % (0-2); Eosinophils Percent Auto 0.4 % (0-4); Hematocrit 38.6 % (42.0-52.0); Hemoglobin 12.6 g/dl (14.0-18.0); Imm Gran Abs Auto 0.02 X10*3/uL (0.00-0.03); Imm Gran Pct Auto 0.3 % (0.0-0.4); Mean Corpuscular HGB Conc 32.6 g/dl (31.0-36.0); Mean Corpuscular Hemoglobin 28.6 pg (27.0-33.0); Mean Corpuscular Volume 87.7 fL (80.0-98.0); Mean Platelet Volume 8.4 fL (9.4-12.4); Monocytes Absolute Auto 0.4 X10*3/uL (0.1-1.2); Neutrophils Absolute Auto 5.2 x10*3/uL (2.0-8.3); Neutrophils Percent Auto 77.9 % (45-73); Platelet Count 414 X10*3/uL (160-400); Red Cell Distribution Width 13.9 % (11.0-16.0); White Blood Count 6.7 X10*3/uL (4.8-10.8)
[2022-07-13 12:13] LABS: Prothrombin Time 11.2 SEC (10.0-13.1)
[2022-07-13 12:15] LABS: Partial Thromboplastin Time 25.1 SEC (26.0-36.4)
[2022-07-13] MEDS: HYDROmorphone HCl 0.5 MG/0.5 ML SYRINGE IVPUSH (12:21)
[2022-07-13 12:24] LABS: Alanine Aminotransferase 91 U/L (0-40); Albumin Level 3.2 g/dL (3.5-5.0); Alkaline Phosphatase 502 U/L (39-117); Anion Gap 12 (12-20); Aspartate Amino Transferase 32 U/L (5-37); Bilirubin Total 0.7 mg/dL (0.0-1.0); Blood Urea Nitrogen 13 mg/dL (9-16); Calcium 8.6 mg/dL (8.4-10.2); Carbon Dioxide 26 mmol/L (22-29); Chloride 104 mmol/L (96-108); Creatinine Clr Calc Pharmacy 137.9; Estimated Glomerular Filt Rate > 60; Glucose Random 105 mg/dL (60-115); Lipase 21 U/L (8-78); Potassium 4.5 mmol/L (3.3-5.1); Sodium 137 mmol/L (135-145); Total Protein 5.3 g/dL (6.5-8.0)
[2022-07-13] MEDS: iohexoL 350 MG/ML 100 ML INFUS..BTL IV (13:11)
[2022-07-13] MEDS: Lidocaine HCl 1 % MPF 5 ML VIAL 10 ML SUBCUT (15:43)
--- NOTE | 2022-07-13 15:49 | PC.NURSE ---
U/S guided parecentesis at this time by Dr Nick at bedside. Monica MULLIGAN at bedside for BP/pt monitoring
--- NOTE | 2022-07-13 16:09 | PC.NURSE ---
Parenthesis done at bedside. 3.8 Liters of fluid drained from right lower quadrant, by Doctor Park. Pt tolerated well.
== END 2022-07-13 17:09 | disposition still patient (30) ==
PROVIDERS: Emergency Provider Emergency Medicine
DX: R10.9 Unspecified abdominal pain (principal); R18.8 Other ascites; Z79.899 Other long term (current) drug therapy; C18.1 Malignant neoplasm of appendix; C78.6 Secondary malignant neoplasm of retroperitoneum and peritoneum
CPT/HCPCS: 36415; 49083; 74177; 80053; 83690; 85025; 85610; 85730; 96374; 99284; J1170; J1642; Q9967

== ENCOUNTER → 2022-07-13 10:30 | Outpatient (BNV) | payer MEDICAID, SELFPAY | PROVIDERS: PCP Physician Assistant; Visit Provider Internal Medicine Medical Oncology | DX: C78.6 Secondary malignant neoplasm of retroperitoneum and peritoneum (principal) | CPT/HCPCS: 99204; 99213; 99214 ==

== ENCOUNTER 2022-07-30 12:15 | Day surgery (SDC) | payer MEDICAID, SELFPAY ==
--- NOTE | ~2022-07-30 | US_ITS ---
EXAMINATION: Ultrasound-guided paracentesis CLINICAL INFORMATION: Malignant ascites COMPARISON: Previous exam most recent 07/13/2022 TECHNIQUE: Procedure and risks and benefits including bleeding, section low blood pressure were discussed with the patient and informed consent was obtained. The right upper quadrant was prepped and draped in the usual sterile fashion. The skin and soft tissues were anesthetized with 1% lidocaine plain. Using ultrasound guidance and a 5 [place] 1 6 system, access to the ascitic fluid was obtained. 3.2 L of rashida-colored fluid was removed. No specimen was sent. FINDINGS: There is a moderate amount of ascites. US/US paracentesis abd w/image IMPRESSION: Ultrasound-guided paracentesis.
[2022-07-30 13:07] VITALS: BMI 25.1
[2022-07-30 14:10] VITALS: BP 105/62; PULSE 72; RESP 18; TEMP 36.8; O2SAT 99
[2022-07-30] MEDS: Lidocaine HCl 1 % MPF 5 ML VIAL SUBCUT (14:21)
[2022-07-30 14:25] VITALS: BP 111/61; PULSE 75; RESP 17; O2SAT 100
[2022-07-30 14:40] VITALS: BP 105/62; PULSE 72; RESP 18; O2SAT 98
[2022-07-30 14:55] VITALS: BP 104/63; PULSE 71; RESP 16; O2SAT 99
[2022-07-30 15:05] VITALS: BP 111/62; PULSE 73; RESP 14; TEMP 36.6; O2SAT 98
== END 2022-07-30 15:16 | disposition home or self-care (01) ==
PROVIDERS: PCP Physician Assistant; Visit Provider Radiology Diagnostic Radiology
DX: R18.8 Other ascites (principal); C18.1 Malignant neoplasm of appendix; C77.2 Secondary and unspecified malignant neoplasm of intra-abdominal lymph nodes
CPT/HCPCS: 49083

== ENCOUNTER → 2022-08-25 08:31 | Outpatient (BNVA) | payer MEDICAID, SELFPAY | PROVIDERS: PCP Physician Assistant; Visit Provider Internal Medicine | DX: R18.8 Other ascites (principal); K35.32 Acute appendicitis with perforation, localized peritonitis, and gangrene, without abscess; C78.6 Secondary malignant neoplasm of retroperitoneum and peritoneum; R10.9 Unspecified abdominal pain; R68.81 Early satiety | CPT/HCPCS: 99212 ==

== ENCOUNTER 2022-09-23 06:05 | Day surgery (SDC) | payer MEDICAID, SELFPAY ==
[2022-09-21 09:27] VITALS: BMI 23.5
--- NOTE | 2022-09-21 14:29 | HO.ANESPROP2 ---
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 (Acute) Early satiety (Acute) Perforated appendix (Acute) Past Medical History Medical History (Updated 09/21/22 @ 09:26 by Juana Guzman RN) Ascites History of abdominal paracentesis History of chemotherapy Immunotherapy Perforated appendix Port-A-Cath in place Family History Family History Mother HTN (hypertension) Asthma Surgical History Surgical History Hx of appendicitis Social History Social History Household Members: Spouse and Children Household Members Other:: 5 Housing: House Do you presently have visiting nurse or other home services: No Alcohol intake: never Patient Tobacco Use Status: Never used Tobacco Use of substances other than those prescribed or required for medical reasons: No Advance Directives: No Advance Directives Information Provided: Yes Current occupational status: employed Meds Allergies Allergy/AdvReac Type Severity Reaction Status Date / Time Penicillins Allergy Rash Verified 08/25/22 08:38 Home Medications Medication Instructions Recorded Confirmed Last Taken Type tumeric 100 mg-jonh 150 mg-olive 1 cap PO DAILY 07/06/22 08/10/22 Unknown History 50 mg-oreg 150 mg-caprylate capsule Exam Exam Date and Time: September 21, 2022 1429 Height,Weight and Vital Signs: Height 5 ft 7 in Weight 68.039 kg Pertinent Lab Results Pertinent Lab Results: Laboratory Tests 09/14/22 09/14/22 09:10 09:10 WBC 13.5 H Hgb 11.5 L Hct 35.3 L Plt Count 242 Sodium 139 Potassium 4.4 Chloride 105 Carbon Dioxide 23 BUN 12 Creatinine 0.69 Narrative Narrative: EKG 06/2022 Vent. Rate : 067 BPM ? ? Atrial Rate : 067 BPM ?? P-R Int : 176 ms? QRS Dur : 086 ms ? ? QT Int : 396 ms ? ? ? P-R-T Axes : 053 080 037 degrees ?? QTc Int : 418 ms ? Normal sinus rhythm Normal ECG When compared with ECG of 04-JUL-2022 07:24, Nonspecific T wave abnormality has replaced inverted T waves in Inferior leads QT has shortened Assessment and Plan Assessment Anesthesia Assessment: Chart Reviewed Documented by User: Caro Hu MD 09/23/22 09:03 [facility] Past Medical History Medical History (Updated 09/21/22 @ 09:26 by Juana Guzman RN) Ascites History of abdominal paracentesis History of chemotherapy Immunotherapy Perforated appendix Port-A-Cath in place Family History Family History Mother HTN (hypertension) Asthma Family history of problems with anesthesia: No Surgical History Surgical History Hx of appendicitis History of Problems with Anesthesia: No Social History Social History Household Members: Spouse and Children Household Members Other:: 5 Housing: House Do you presently have visiting nurse or other home services: No Alcohol intake: never Patient Tobacco Use Status: Never used Tobacco Use of substances other than those prescribed or required for medical reasons: No Advance Directives: No Advance Directives Information Provided: Yes Current occupational status: employed Meds Allergies Allergy/AdvReac Type Severity Reaction Status Date / Time Penicillins Allergy Rash Verified 08/25/22 08:38 Home Medications Medication Instructions Recorded Confirmed Last Taken Type tumeric 100 mg-jonh 150 mg-olive 1 cap PO DAILY 07/06/22 08/10/22 Unknown History 50 mg-oreg 150 mg-caprylate capsule Exam Airway Mallampati Class: I TM Dist: >3cm Neck ROM: Full Loose/Missing/Broken Teeth: No Heart: rr Lungs: cts Assessment and Plan Assessment Anesthesia Assessment: Anesthesia Plan Discussed Final Anesthetic Review Family History of Problems with Anesthesia: No History of Problems with Anesthesia: No NPO: Yes ASA Class: III (cancer ) Final Preanesthetic Review: No Changes in Pt Med Stat, Meds/Allgs Chart Reviewed, Consent Obtained/Reviewed and Anes Risks/Benef Reviewed Patient Risk: Low Procedure Risk: Low Anesthetic Plan Anesthetic Plan: MAC: Disposition: Standard PACU
[2022-09-23 06:35] VITALS: BP 112/72; PULSE 66; RESP 16; TEMP 36.5; O2SAT 99; BMI 23.8
[2022-09-23 07:54] VITALS: BP 96/51; PULSE 64; RESP 16; TEMP 36.1; O2SAT 96
--- NOTE | 2022-09-23 08:03 | MHC.SHP ---
Pre-Procedural Eval Section A Date of Service: 09/23/22 The History & Physical has been completed within 30 days and I have reviewed it.: Yes Section B Chief Complaint: Early satiety,Other ascites Allergies: Allergies Allergy/AdvReac Type Severity Reaction Status Date / Time Penicillins Allergy Rash Verified 08/25/22 08:38 Plan Diagnosis/Plan: Unchanged I have reviewed the history and physical and performed a pertinent physical examination on my patient. No changes have occurred unless specified. Time Spent With Patient Time: Total time managing care of this patient today ____ minutes.
--- NOTE | 2022-09-23 08:04 | P.OP_ITS ---
Operative Note Operative Note Date of Service: 09/23/22 Narrative: Procedure: Esophagogastroduodenoscopy Endoscopist: Karol Banks MD Indication: Abd pain, early satiety Anesthesia Provider: Amy Arellano CRNA Anesthesia Type: MAC ?? EGD Procedure:?? The procedure, indications, preparation and potential complications were reviewed with the patient, who indicated understanding and gave written informed consent to proceed. A physical exam was performed. The endoscope was introduced through the mouth, and advanced to the stomach which was food filled. The procedure was therefore aborted to avoid aspiration event. There were no immediate complications.? ? EGD Findings:? * Esophagus:? Normal mucosa noted in the entire esophagus. * Stomach:?Solid food was noted in the entire stomach precluding any visualization. The procedure was therefore aborted to avoid aspiration event. ? EGD Impressions:? * Normal esophagus * Food in stomach Recommendations:?? * The procedure had to be aborted as above * Will be rescheduled in the next couple of weeks, pt will be advised to take CLD the day before Above has been reviewed with the patient.
[2022-09-23 08:13] VITALS: BP 105/61; PULSE 66; RESP 18; TEMP 36.1; O2SAT 99
== END 2022-09-23 09:07 | disposition home or self-care (01) ==
PROVIDERS: PCP Physician Assistant; Visit Provider Internal Medicine
PROC: 0DJ08ZZ Inspection of Upper Intestinal Tract, Via Natural or Artificial Opening Endoscopic (ICD-10-PCS; CPT 43235; principal; 2022-09-23 07:30)
DX: R10.9 Unspecified abdominal pain (principal); R68.81 Early satiety; R18.8 Other ascites; Z53.8 Procedure and treatment not carried out for other reasons; Z88.0 Allergy status to penicillin
CPT/HCPCS: 43235

== ENCOUNTER 2022-09-24 09:38 | Outpatient (REF) | payer MEDICAID, SELFPAY ==
[2022-09-24] MEDS: iohexoL 350 MG/ML 100 ML INFUS..BTL 85 ML IV (12:41)
[2022-09-24] MEDS: Barium Sulfate Oral (Vanilla) 450 ML ORAL.SUSP 900 ML PO (12:42)
== END 2022-09-24 09:39 | disposition home or self-care (01) ==
LOC: HO.CT 09:38
PROVIDERS: PCP Physician Assistant; Visit Provider Internal Medicine Medical Oncology
DX: C78.6 Secondary malignant neoplasm of retroperitoneum and peritoneum (principal)
CPT/HCPCS: 71260; 74177; Q9967

== ENCOUNTER 2022-09-30 08:35 | Day surgery (SDC) | payer MEDICAID, SELFPAY ==
[2022-09-30 08:56] VITALS: BP 102/57; PULSE 68; RESP 16; TEMP 36.4; O2SAT 97; BMI 24.5
--- NOTE | 2022-09-30 09:41 | MHC.SHP ---
Pre-Procedural Eval Section A Date of Service: 09/30/22 The History & Physical has been completed within 30 days and I have reviewed it.: Yes Section B Chief Complaint: Early satiety,Other ascites Details of Present Illness: PMH: Pseudomyxoma peritonei Perforated appendix Surgical History Hx of appendicitis Allergies: Allergies Allergy/AdvReac Type Severity Reaction Status Date / Time Penicillins Allergy Rash Verified 08/25/22 08:38 Review of Systems Review of Systems Comment: Ten point ROS negative except as above Exam Exam Comment: Gen appear: No acute distress HEENT: no icterus Chest: No overt resp distress Abd: soft, nontender, nondistended Psych: Stable affect, answering questions appropriately Neuro: A/Ox3 noted to move all extremities spontaneously Ext: no peripheral edema Plan Diagnosis/Plan: Unchanged I have reviewed the history and physical and performed a pertinent physical examination on my patient. No changes have occurred unless specified. Time Spent With Patient Time: Total time managing care of this patient today ____ minutes.
--- NOTE | 2022-09-30 11:30 | W.PM.OPN ---
Operative Note Operative Note Date of Service: 09/23/22 Narrative: Procedure: Esophagogastroduodenoscopy Endoscopist: Karol Banks MD Indication: Abd pain, early satiety Anesthesia Provider: Dr Caro Hu Anesthesia Type: GEA Instrument: Olympus [id number]-H190 EGD Procedure:?? The procedure, indications, preparation and potential complications were reviewed with the patient, who indicated understanding and gave written informed consent to proceed. A physical exam was performed. The patient was electively intubated for airway protection by the anesthesia provider. The endoscope was introduced through the mouth, and advanced to the third portion of the duodenum. There were no immediate complications.? ? EGD Findings:? Esophagus:? Normal mucosa noted in the entire esophagus. The Z line was at 37 cm. Stomach: Moderate amount of bile in stomach which was suctioned. A small crater like depression in antrum likely from previous ulcer. Cold forceps biopsies were taken for histology. Duodenum: A 1 cm Gillespie II c ulcer with a pigment spot was noted in the anterior aspect of duodenal bulb that started oozing with agitation from water flush. Gold probe was applied at the oozing pigment spot and x2 Resolution 360 clips were placed to close the ulcer with complete hemostasis. The remaining duodenal mucosa was normal. ? EGD Impressions:? Normal esophagus Healing antral ulcer (biopsy) Gillespie II c duodenal ulcer (gold probe, endoclips x 2) Recommendations:?? Abdominal pain likely due to duodenal ulcer Omeprazole 40mg BID x 6-8 weeks Avoid NSAIDs and smoking
[2022-09-30 11:40] VITALS: BP 103/58; PULSE 78; RESP 16; TEMP 36.1; O2SAT 100
[2022-09-30 11:45] VITALS: BP 106/65; PULSE 80; RESP 16; O2SAT 98
[2022-09-30 11:50] VITALS: BP 109/71; PULSE 74; RESP 16; O2SAT 98
[2022-09-30 11:55] VITALS: BP 111/74; PULSE 73; RESP 16; O2SAT 100
[2022-09-30 12:10] VITALS: BP 110/68; PULSE 65; RESP 16; TEMP 36.1; O2SAT 100
--- NOTE | 2022-09-30 14:56 | HO.ANESPROP2 ---
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) Early satiety (Acute) Perforated appendix (Acute) Past Medical History Medical History (Updated 09/21/22 @ 09:26 by Juana Guzman RN) Ascites History of abdominal paracentesis History of chemotherapy Immunotherapy Perforated appendix Port-A-Cath in place Family History Family History Mother HTN (hypertension) Asthma Family history of problems with anesthesia: No Surgical History Surgical History Hx of appendicitis History of Problems with Anesthesia: No Social History Social History Household Members: Spouse and Children Household Members Other:: 5 Housing: House Do you presently have visiting nurse or other home services: No Alcohol intake: never Patient Tobacco Use Status: Never used Tobacco Current occupational status: employed Meds Allergies Allergy/AdvReac Type Severity Reaction Status Date / Time Penicillins Allergy Rash Verified 08/25/22 08:38 Home Medications Medication Instructions Recorded Confirmed Last Taken Type tumeric 100 mg-jonh 150 mg-olive 1 cap PO DAILY 07/06/22 08/10/22 Unknown History 50 mg-oreg 150 mg-caprylate capsule Exam Exam Date and Time: September 30, 20221455 Height,Weight and Vital Signs: Height 5 ft 7 in Weight 71 kg Last Vital Signs Temp 97 F 09/30/22 12:10 Pulse 65 09/30/22 12:10 Resp 16 09/30/22 12:10 BP 110/68 09/30/22 12:10 Pulse Ox 100 09/30/22 12:10 O2 Del Method Room Air 09/30/22 12:10 Airway Mallampati Class: II TM Dist: >3cm Neck ROM: Full Loose/Missing/Broken Teeth: No Heart: rr Lungs: cta Assessment and Plan Assessment Anesthesia Assessment: Anesthesia Plan Discussed and Chart Reviewed Final Anesthetic Review Family History of Problems with Anesthesia: No History of Problems with Anesthesia: No NPO: Yes ASA Class: III Final Preanesthetic Review: No Changes in Pt Med Stat, Meds/Allgs Chart Reviewed, Consent Obtained/Reviewed and Anes Risks/Benef Reviewed Patient Risk: Intermediate Procedure Risk: Low Anesthetic Plan Anesthetic Plan: GA (patient had full stomache on prior attempt) and Agree w/ Assess. and Plan
== END 2022-09-30 12:41 | disposition home or self-care (01) ==
PROVIDERS: PCP Physician Assistant; Visit Provider Internal Medicine
PROC: 0DJ08ZZ Inspection of Upper Intestinal Tract, Via Natural or Artificial Opening Endoscopic (ICD-10-PCS; CPT 43235; principal; 2022-09-30 14:00)
DX: K26.9 Duodenal ulcer, unspecified as acute or chronic, without hemorrhage or perforation (principal); K25.9 Gastric ulcer, unspecified as acute or chronic, without hemorrhage or perforation; R68.81 Early satiety; Z88.0 Allergy status to penicillin
CPT/HCPCS: 43239; 43255; 88305; 88342; J2250

== ENCOUNTER 2023-08-16 08:38 | Outpatient (REF) | payer MEDICAID, SELFPAY ==
--- NOTE | ~2023-08-16 | CT_ITS ---
EXAMINATION: CT ABDOMEN AND PELVIS WITH CONTRAST CLINICAL INFORMATION: Pseudomyxoma peritonei COMPARISON: 09/25/2019 TECHNIQUE: Multidetector volumetric images were obtained from the superior aspect of the liver through the pubic symphysis following administration 85 mL of Omnipaque 350 intravenous contrast. Sagittal and coronal reformatted images were obtained on the technologist's workstation. Oral contrast: No This CT examination was performed using dose optimization techniques as appropriate, variously including the following: *Automated exposure control *Adjustment of mA and/or kV according to patient size (this includes techniques or standardized protocols for targeted exams where dose is matched to indication/reason for exam; i.e. extremities or head) *Use of iterative reconstruction technique DLP: 480 mGy-cm FINDINGS: LIVER, GALLBLADDER, AND BILIARY TREE: Liver revealed no parenchymal lesions but there is perihepatic ascites with scalloping of the contour. There are mild intrahepatic biliary dilatation. Gallbladder is contracted . PANCREAS: Unremarkable. SPLEEN: Spleen surrounded by ascites with scalloping contour with subcapsular implants growing since previous study with the largest in the lower pole of spleen, measured 3.6 cm and inseparable from the splenic ascites measured 2.6 cm. ADRENAL GLANDS: Unremarkable. KIDNEYS AND URETERS: The kidneys are normal in size, shape, and attenuation. No hydronephrosis, hydroureter, or calculi seen. No perinephric stranding. BLADDER: Unremarkable. GASTROINTESTINAL TRACT: Multiple implants are seen through the left side and central mesentery, diminished since previous study in size, inseparable from the colon with the largest component of the left measured 5.7 x 5.2 cm and largest component centrally adjacent to the stomach, measured approximately 3.8 x 4.0 cm. Another deposit on the left Measured approximately 6.6 x 4.3 cm, diminished since previous study and cystic appearance of lesions to the right of IVC measured 3.5 x 3.2 cm and 2.9 x 2.2 cm. Smaller sized deposit seen through the mesentery, but less prominent than on the previous examination. No evidence of bowel obstruction. There is large amount of fecal debris. ABDOMINAL WALL: No significant hernia is appreciated. VASCULAR: Unremarkable. PELVIC VISCERA: Unremarkable. OSSEOUS STRUCTURES: Unremarkable. CT/CT abdomen pelvis w IV con IMPRESSION: 1. Interval improvement since previous study with decrease in size and number of implants in the mesentery. 2. Scalloping of the liver and spleen with growing subcapsular implants. 3. Mild intrahepatic biliary dilatation. 4. Constipation. Fleischner guidelines were followed.
--- NOTE | ~2023-08-16 | CT_ITS ---
EXAMINATION: CT CHEST, WITH CONTRAST CLINICAL INFORMATION: Pseudomyxoma peritonei 20 COMPARISON: 09/24/2022 TECHNIQUE: Multidetector volumetric CT imaging of the chest, abdomen, and pelvis was obtained after the administration of 85 mL of Omnipaque 350 intravenous contrast without immediate adverse reactions. Axial MIP volume rendering provided. Sagittal and coronal reformatted images were obtained. This CT examination was performed using dose optimization techniques as appropriate, variously including the following: *Automated exposure control *Adjustment of mA and/or kV according to patient size (this includes techniques or standardized protocols for targeted exams where dose is matched to indication/reason for exam; i.e. extremities or head) *Use of iterative reconstruction technique DLP: 744 mGy-cm FINDINGS: LUNGS: There is stable nodule seen in the left lower lobe image 230 series 12 and measured 0.5 cm, there is stable 0.3 cm right medial lobe nodule, seen on image 200. MEDIASTINUM: Thyroid gland is unremarkable. There is no mediastinal or hilar lymphadenopathy seen. Aorta is not dilated and there is no evidence of pulmonary embolism. There is no pericardial effusion CORONARY ARTERY CALCIFICATION: Not seen PLEURA: There is no pleural effusion. No pleural mass or thickening. AXILLA: Unremarkable. Visualized abdomen: Partially visualized stomach demonstrates small hiatal hernia. There is ascites seen adjacent to the spleen with parenchymal lesions. There is small amount of ascites seen adjacent to the partially visualized OSSEOUS STRUCTURES: Unremarkable. CT/CT chest w IV con IMPRESSION: 1. Stable lung nodules. 2. Ascites.
[2023-08-16] MEDS: iohexoL 350 MG/ML 100 ML INFUS..BTL IV (10:42)
[2023-08-16] MEDS: Barium Sulfate Oral (Vanilla) 450 ML ORAL.SUSP 900 ML PO (10:43)
== END 2023-08-16 08:39 | disposition home or self-care (01) ==
LOC: HO.CT 08:38
PROVIDERS: PCP Physician Assistant; Visit Provider Internal Medicine Medical Oncology
DX: R91.8 Other nonspecific abnormal finding of lung field (principal); C78.6 Secondary malignant neoplasm of retroperitoneum and peritoneum
CPT/HCPCS: 71260; 74177; Q9967

== ENCOUNTER 2023-11-10 14:19 | Outpatient (REF) | payer MEDICAID, SELFPAY ==
--- NOTE | ~2023-11-10 | XR_ITS ---
EXAMINATION: XR SHOULDER, LEFT CLINICAL INFORMATION: Left shoulder pain. COMPARISON: None available. TECHNIQUE: AP external rotation, Grashey, scapular Y, and axillary views of the left shoulder. FINDINGS: Small acromioclavicular and glenohumeral marginal osteophytes. No acute fracture or dislocation. No concerning lytic or blastic osseous lesion. No abnormal soft tissue calcification. XR/XR shoulder LT min 2V IMPRESSION: Mild acromioclavicular and glenohumeral osteoarthritis. Electronically signed by: Russel Hill MD 12/07/2023 08:58 PM EDT
== END 2023-11-10 14:20 | disposition home or self-care (01) ==
LOC: HO.XRAY 14:19
PROVIDERS: Visit Provider Internal Medicine Medical Oncology
DX: C18.1 Malignant neoplasm of appendix (principal); C77.2 Secondary and unspecified malignant neoplasm of intra-abdominal lymph nodes
CPT/HCPCS: 73030

== ENCOUNTER → 2023-11-17 07:29 | Day surgery (SDC) | payer MEDICAID, SELFPAY ==
--- NOTE | ~2023-11-17 | US_ITS ---
EXAMINATION: US ABDOMEN LIMITED CLINICAL INFORMATION: Recurrent ascites. COMPARISON: CT abdomen and pelvis 08/16/2023. Ultrasound abdomen 07/05/2022. MR abdomen 06/25/2022. TECHNIQUE: Real-time imaging of the abdominal viscera. FINDINGS: No sonographic findings of ascites visualized. US/US abdomen limited pre post IMPRESSION: No sonographic findings of ascites visualized. Electronically signed by: Sandrine Marinelli MD 12/05/2023 06:11 PM EDT
[2023-11-17 07:33] VITALS: BP 97/79; PULSE 66; RESP 18; TEMP 36.7; O2SAT 98; BMI 26.5
[2023-11-17 08:10] LABS: INTERNATIONAL NORM RATIO 0.9 (0.9-1.1); Prothrombin Time 10.9 SEC (11.1-13.3)
[2023-11-17 08:13] LABS: Partial Thromboplastin Time 29.3 SEC (26.0-36.8)
== END ==
LOC: HO.SSS 07:31
PROVIDERS: Physician Assistant Surgical; PCP Internal Medicine; Visit Provider Internal Medicine
DX: R18.8 Other ascites (principal); Z53.9 Procedure and treatment not carried out, unspecified reason
CPT/HCPCS: 36415; 76705; 85610; 85730

== ENCOUNTER 2023-12-14 09:13 | Outpatient (AMB) | payer MEDICAID, SELFPAY ==
[2023-12-14 09:54] VITALS: BMI 26.9
--- NOTE | 2023-12-14 09:54 | MHC.OFFVIS ---
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 The patient states that his pain began several months ago. He does not recall any specific traumatic event preceding the onset of his pain. He has been getting chemotherapy every 3 weeks. He has taken narcotic pain medicine which gives him minimal relief. He has difficulty sleeping because of his left shoulder pain. The patient reports difficulty lifting his left hand above shoulder height. Allergies Penicillins Allergy (Verified 12/14/23 09:58) Rash Medication List - Last Reconciled 12/14/23 by Danny Fermin MD butenafine 1% (Lotrimin Ultra) 1 appl topical BID dexamethasone 4 mg PO BID loperamide (Imodium A-D) 2 mg PO Q4H PRN Magic Mouthwash Diphen/Lido/Antacid 1:1:1 10 mL PO QID magnesium citrate (OneLAX Magnesium Citrate oral solution) 150 mL PO DAILY PRN morphine 15 mg PO Q6H PRN omeprazole 40 mg PO BID 8 weeks ondansetron 8 mg PO Q8H oxycodone 5 mg PO Q6H PRN polyethylene glycol 3350 (Miralax) 17 grams PO DAILY qtlrconb-cglb-krowl-oreg-capry 100 mg-150 mg- 50 mg-150 mg 1 cap PO DAILY PFSH Medical History (Updated 12/14/23 @ 10:17 by Danny Fermin MD) History of chemotherapy Immunotherapy Port-A-Cath in place Ascites Perforated appendix Surgical History History of abdominal paracentesis Hx of appendicitis Family History Mother HTN (hypertension) Asthma Social History Household Members: Spouse and Children Household Members Other:: 5 Housing: House Are you a primary zoo caretaker to a significant other at home: No Do you presently have visiting nurse or other home services: No Alcohol intake: never Patient Tobacco Use Status: Never used Tobacco Current occupational status: employed Physical Exam Vital Signs: BMI result Body Mass Index 26.9 Const Other: Well-nourished well-developed very friendly male awake alert and oriented x3 in no acute distress Extrem Other: Bilateral upper extremity examination shows good capillary refill, no skin lesions noted, normal sensation light touch Left shoulder examination shows decreased active and passive range of motion when compared to his right shoulder, 4+ out of 5 strength with supraspinatus testing, positive impingement signs, no instability Results Reviewed Results Reviewed: X-rays of the patient's left shoulder show moderate acromioclavicular joint narrowing as well as a type 3 acromion, no acute bony abnormalities Assessment & Plan Assessment & Plan (1) Adhesive capsulitis of left shoulder: Code(s): M75.02 - Adhesive capsulitis of left shoulder Category: Medical Plan Mr. Dalton presents with left shoulder pain and stiffness due to impingement syndrome and adhesive capsulitis. I had a lengthy discussion with the patient regarding the treatment options. We will hold off on a cortisone injection at this time. I did give him a prescription to go to formal physical therapy. He will contact me prior to his follow-up appointment in 6 weeks should his symptoms worsen in any way. Feel free to call me at any time should questions regarding his orthopedic management arise. Thank you very much for asking me to see this very friendly gentleman. I spent 21 minutes in reviewing the patient's records and imaging studies, seeing the patient and documenting in the medical record. Orders: Orders PT Evaluation and Treatment Today M75.02 - Adhesive capsulitis of left shoulder Coding Level of Care Code New Pt Level 3 (15804) Complex EM visit Add On G2211 Diagnoses Adhesive capsulitis of left shoulder M75.02
== END 2023-12-14 10:21 | disposition home or self-care (01) ==
PROVIDERS: PCP Internal Medicine; Referring Provider Internal Medicine; Visit Provider Orthopaedic Surgery
DX: M75.02 Adhesive capsulitis of left shoulder (principal)
CPT/HCPCS: 99203

== ENCOUNTER → 2023-12-14 09:13 | Outpatient (BNVA) | payer MEDICAID, SELFPAY | PROVIDERS: PCP Internal Medicine; Visit Provider Orthopaedic Surgery | DX: M75.02 Adhesive capsulitis of left shoulder (principal) | CPT/HCPCS: 99202 ==

== ENCOUNTER 2024-02-07 08:52 | Outpatient (AMB) | payer MEDICAID, SELFPAY ==
[2024-02-07 09:17] VITALS: BMI 28.3
--- NOTE | 2024-02-07 09:17 | MHC.OFFVIS ---
Vital Signs 02/07/24 09:17 Height 5 ft 7 in Weight 181 lb BMI 28.3 Intake Visit Reasons: Left shoulder pain and weakness Intake Note: Jo is a 53 year old right hand dominant male who presents with complaints of progressively worsening left shoulder pain and weakness. The patient states that his pain is sharp in nature. Most of the pain is along the lateral aspect of his shoulder. The patient has pain and weakness have gotten worse over the last year in spite of continued non operative treatments. The patient has difficulty lifting his left hand above shoulder height. He has done physical therapy which aggravated his pain. He has also tried Tylenol and anti-inflammatory medicines which gave him minimal relief. He has failed the last 6 weeks of conservative treatment. The patient's symptoms have gotten worse since his last visit with me in November. Allergies Penicillins Allergy (Verified 12/14/23 09:58) Rash Medication List - Last Reconciled 02/07/24 by Danny Fermin MD butenafine 1% (Lotrimin Ultra) 1 appl topical BID dexamethasone 4 mg PO BID ibuprofen 800 mg PO DAILY loperamide (Imodium A-D) 2 mg PO Q4H PRN Magic Mouthwash Diphen/Lido/Antacid 1:1:1 10 mL PO QID magnesium citrate (OneLAX Magnesium Citrate oral solution) 150 mL PO DAILY PRN morphine 15 mg PO Q6H PRN omeprazole 40 mg PO BID 8 weeks ondansetron 8 mg PO Q8H oxycodone 5 mg PO Q6H PRN polyethylene glycol 3350 (Miralax) 17 grams PO DAILY wsitysxs-godt-vsecu-oreg-capry 100 mg-150 mg- 50 mg-150 mg 1 cap PO DAILY [facility] Medical History (Updated 02/09/24 @ 07:34 by Danny Fermin MD) History of chemotherapy Immunotherapy Port-A-Cath in place Ascites Perforated appendix Surgical History History of abdominal paracentesis Hx of appendicitis Family History Mother HTN (hypertension) Asthma Social History Household Members: Spouse and Children Household Members Other:: 5 Housing: House Are you a primary student career development specialist to a significant other at home: No Do you presently have visiting nurse or other home services: No Alcohol intake: never Patient Tobacco Use Status: Never used Tobacco Current occupational status: employed Physical Exam Vital Signs: BMI result Body Mass Index 28.3 Const Other: Well-nourished well-developed very friendly male awake alert and oriented x3 in no acute distress Extrem Other: Bilateral upper extremity examination shows good capillary refill, no skin lesions noted, normal sensation light touch Left shoulder examination shows decreased range of motion when compared to his right shoulder, 4+ out of 5 strength with supraspinatus testing, positive impingement signs, tenderness over his acromioclavicular joint, no instability Results Reviewed Results Reviewed: X-rays of the patient's left shoulder taken previously show severe acromioclavicular joint narrowing, a type 3 acromion, no acute bony abnormalities Assessment & Plan Assessment & Plan (1) Left shoulder pain: Code(s): M25.512 - Pain in left shoulder Category: Medical Plan Ali presents with left shoulder pain and weakness due to impingement syndrome and possible rotator cuff tearing. Thus I will send the patient for an MRI of his left shoulder for further evaluation. I will see him back once the MRI is completed to discuss the findings and treatment options. Feel free to call me any time should questions regarding his orthopedic management arise. I spent 22 minutes in reviewing the patient's records and imaging studies, seeing the patient and documenting in the medical record. Orders: Orders MR shoulder LT wo con Today M25.512 - Pain in left shoulder Coding Level of Care Code Est Pt Level 3 (15129) Complex EM visit Add On G2211 Diagnoses Left shoulder pain M25.512
== END 2024-02-07 09:28 | disposition home or self-care (01) ==
PROVIDERS: PCP Internal Medicine; Visit Provider Orthopaedic Surgery
DX: M25.512 Pain in left shoulder (principal)
CPT/HCPCS: 99213

== ENCOUNTER → 2024-02-07 08:52 | Outpatient (BNVA) | payer MEDICAID, SELFPAY | PROVIDERS: PCP Internal Medicine; Visit Provider Orthopaedic Surgery | DX: M25.512 Pain in left shoulder (principal); R53.1 Weakness | CPT/HCPCS: 99212 ==

== ENCOUNTER 2024-02-17 08:50 | Outpatient (REF) | payer MEDICAID, SELFPAY ==
--- NOTE | ~2024-02-17 | CT_ITS ---
EXAMINATION: CT ABDOMEN AND PELVIS WITH CONTRAST CLINICAL INFORMATION: Follow-up peritoneal disease. COMPARISON: Right upper quadrant ultrasound November 17, 2023 CT abdomen/pelvis August 16, 2023 TECHNIQUE: Multidetector volumetric images were obtained from the superior aspect of the liver through the pubic symphysis following administration 85 mL of Omnipaque 350 intravenous contrast. Sagittal and coronal reformatted images were obtained on the technologist's workstation. Oral contrast: Yes This CT examination was performed using dose optimization techniques as appropriate, variously including the following: *Automated exposure control *Adjustment of mA and/or kV according to patient size (this includes techniques or standardized protocols for targeted exams where dose is matched to indication/reason for exam; i.e. extremities or head) *Use of iterative reconstruction technique DLP: 420 mGy-cm FINDINGS: LUNG BASES: No pleural or pericardial effusion. LIVER, GALLBLADDER, AND BILIARY TREE: No new parenchymal lesions. No interval change in scalloping of the hepatic contour. Stable mild intrahepatic biliary dilatation. Gallbladder is similarly contracted. PANCREAS: No ductal dilatation. SPLEEN: No interval change in scalloping of the splenic contour. Index lesion in the inferior spleen measures 4.9 x 4.4 cm, previously 4.0 x 3.7 cm. ADRENAL GLANDS: Unremarkable. KIDNEYS AND URETERS: The kidneys are normal in size, shape, and attenuation. No hydronephrosis. No perinephric stranding. BLADDER: Mild diffuse wall thickening. GASTROINTESTINAL TRACT: Multiple stable implants are seen throughout the peritoneum including the gastrohepatic ligament and central mesentery. There are similar serosal implants along the sigmoid colon in the low pelvis/right lower quadrant causing luminal narrowing. There is marked fecal retention in the more proximal colon possibly due to mechanical obstruction. No small bowel obstruction. ABDOMINAL WALL: No significant hernia is appreciated. VASCULAR: Unremarkable. PELVIC VISCERA: Enlarged prostate gland. OSSEOUS STRUCTURES: No destructive bone lesions. CT/CT abdomen pelvis w IV con IMPRESSION: Interval increase in size of splenic subcapsular implants. No significant change in scalloping of the hepatic and splenic contours. 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 There is extensive serosal implantation along the sigmoid colon likely causing mechanical obstruction of the large bowel. Electronically signed by: Antony Hazel MD 02/20/2024 09:48 AM EST
[2024-02-17] MEDS: iohexoL 350 MG/ML 75 ML INFUS..BTL 85 ML IV (11:23)
[2024-02-17] MEDS: Barium Sulfate Oral (Mocha) 450 ML ORAL.SUSP 900 ML PO (11:25)
== END 2024-02-17 08:51 | disposition home or self-care (01) ==
LOC: HO.CT 08:50
PROVIDERS: PCP Physician Assistant; Visit Provider Internal Medicine Medical Oncology
DX: C18.1 Malignant neoplasm of appendix (principal); C77.2 Secondary and unspecified malignant neoplasm of intra-abdominal lymph nodes
CPT/HCPCS: 74177; Q9967

== ENCOUNTER 2024-02-20 19:18 | Outpatient (REF) | payer MEDICAID, SELFPAY ==
--- NOTE | ~2024-02-20 | MR_ITS ---
EXAMINATION: MR SHOULDER WITHOUT CONTRAST, LEFT CLINICAL INFORMATION: Shoulder pain. COMPARISON: X-ray 11/10/2023. TECHNIQUE: MRI of the shoulder without contrast was performed on a high-field scanner. FINDINGS: ROTATOR CUFF: Tkgw-ap-ygxjhqel supraspinatus tendinosis. Mild articular surface fraying in the anterior fibers. Infraspinatus and teres minor are intact. Mild subscapularis tendinosis. No muscle atrophy or fatty infiltration. BICEPS: Intact. CORACOACROMIAL ARCH: The undersurface of the acromion is curved with no subacromial spur. Mild acromioclavicular arthritis. Trace subacromial subdeltoid bursitis. LABRUM/CAPSULE: T2 signal in the posterior labrum, suspicious for degeneration and tear. Degeneration plus/minus tear in the anteroinferior and inferior labrum. Inferior capsule is mildly edematous. GLENOHUMERAL JOINT/MARROW: Mild glenohumeral joint arthritis. Posterior glenoid cyst/edema. Degenerative-appearing cyst/edema in the posterior humeral head. No acute fracture. No significant effusion. MR/MR shoulder LT wo con IMPRESSION: 1. Hjbt-iw-dgkburte supraspinatus tendinosis. Mild articular surface fraying in the anterior fibers. 2. Mild subscapularis tendinosis. 3. Posterior labral degeneration and tear. Degeneration plus/minus tear in the anteroinferior and inferior labrum. 4. Inferior capsule findings could be related to sprain or capsulitis. 5. Mild glenohumeral joint arthritis. 6. Mild acromioclavicular arthritis. Trace subacromial subdeltoid bursitis. Electronically signed by: Brian Cheng MD 03/09/2024 03:55 PM [facility]
== END 2024-02-20 19:19 | disposition home or self-care (01) ==
LOC: HO.MRI 19:18
PROVIDERS: PCP Internal Medicine; Visit Provider Orthopaedic Surgery
DX: M25.512 Pain in left shoulder (principal)
CPT/HCPCS: 73221

== ENCOUNTER 2024-03-19 10:37 | Outpatient (AMB) | payer MEDICAID, SELFPAY ==
--- NOTE | 2024-03-19 10:41 | A.OFFVIS_ITS ---
Vital Signs 03/19/24 10:42 Height 5 ft 7 in Weight 181 lb BMI 28.3 Intake Visit Reasons: OV- left shoulder MRI review Intake Note: Jo is a 53 year old right-hand dominant male who presents with complaints of progressively worsening left shoulder pain and stiffness. The patient states that his pain began several months ago. He does not recall any specific traumatic event preceding the onset of his pain. He has been getting chemotherapy every 3 weeks. He has taken narcotic pain medicine which gives him minimal relief. He has difficulty sleeping because of his left shoulder pain. The patient reports difficulty lifting his left hand above shoulder height. Allergies Penicillins Allergy (Verified 03/19/24 10:42) Rash Medication List - Last Reconciled 03/19/24 by Danny Fermin MD butenafine 1% (Lotrimin Ultra) 1 appl topical BID dexamethasone 4 mg PO BID ibuprofen 800 mg PO DAILY loperamide (Imodium A-D) 2 mg PO Q4H PRN Magic Mouthwash Diphen/Lido/Antacid 1:1:1 10 mL PO QID magnesium citrate (OneLAX Magnesium Citrate oral solution) 150 mL PO DAILY PRN morphine 15 mg PO Q6H PRN omeprazole 40 mg PO BID 8 weeks ondansetron 8 mg PO Q8H oxycodone 5 mg PO Q6H PRN polyethylene glycol 3350 (Miralax) 17 grams PO DAILY skniavqo-rron-zixrv-oreg-capry 100 mg-150 mg- 50 mg-150 mg 1 cap PO DAILY PFSH Medical History (Updated 02/09/24 @ 07:34 by Danny Fermin MD) History of chemotherapy Immunotherapy Port-A-Cath in place Ascites Perforated appendix Surgical History History of abdominal paracentesis Hx of appendicitis Family History Mother HTN (hypertension) Asthma Social History Household Members: Spouse and Children Household Members Other:: 5 Housing: House Are you a primary manager respiratory care to a significant other at home: No Do you presently have visiting nurse or other home services: No Alcohol intake: never Patient Tobacco Use Status: Never used Tobacco Current occupational status: employed Physical Exam Vital Signs: BMI result Body Mass Index 28.3 Const Other: Well-nourished well-developed very friendly male awake alert and oriented x3 in no acute distress Extrem Other: Bilateral upper extremity examination shows good capillary refill, no skin lesions noted, normal sensation light touch Left shoulder examination shows decreased range of motion compared to his right shoulder, 4+ out of 5 strength with supraspinatus testing, positive impingement signs, tenderness over his acromioclavicular joint, no instability Results Reviewed Results Reviewed: MRI of the patient's left shoulder show severe acromioclavicular joint narrowing, a type 3 acromion, signal change within the supraspinatus tendon most likely due to adhesive capsulitis Assessment & Plan Assessment & Plan (1) Adhesive capsulitis of left shoulder: Code(s): M75.02 - Adhesive capsulitis of left shoulder Category: Medical Plan Ali presents with progressively worsening left shoulder pain and stiffness due to impingement syndrome, acromioclavicular joint arthritis and adhesive capsulitis. I had a lengthy discussion with the patient regarding the treatment options. We will hold off on a cortisone injection for now. He will continue with his home stretching program to prevent worsening of his stiffness. The do's and don'ts of lifting were discussed at length with the patient. He will follow up with me on an as-needed basis should his symptoms worsen in any way. Feel free to call me at any time should questions regarding his orthopedic management arise. I spent 20 minutes in reviewing the patient's records and imaging studies, seeing the patient and documenting in the medical record. Coding Level of Care Code Est Pt Level 3 (98125) Complex EM visit Add On G2211 Diagnoses Adhesive capsulitis of left shoulder M75.02
[2024-03-19 10:42] VITALS: BMI 28.3
== END 2024-03-19 11:02 | disposition home or self-care (01) ==
PROVIDERS: PCP Internal Medicine; Visit Provider Orthopaedic Surgery
DX: M75.02 Adhesive capsulitis of left shoulder (principal)
CPT/HCPCS: 99213

== ENCOUNTER → 2024-03-19 10:37 | Outpatient (BNVA) | payer MEDICAID, SELFPAY | PROVIDERS: PCP Internal Medicine; Visit Provider Orthopaedic Surgery | DX: M75.02 Adhesive capsulitis of left shoulder (principal) | CPT/HCPCS: 99212 ==